=== PATIENT | male | born 1960 | race American Indian/Alaskan Native ===

== ENCOUNTER 2018-06-10 01:12 | Emergency (ER) | payer MEDICAID, OTHER ==
[2018-06-10 01:12] VITALS: BMI 24.3
[2018-06-10] MEDS ORDERED: Albuterol-Ipratrop 3 mg / 0.5 (3 ml) UD IH STA ×2 (01:48→03:24)
--- NOTE | 2018-06-10 01:50 | ED PDOC ---
Arrival/HPI - General Chief Complaint: Weakness/Neurological Deficit Historian: Patient - History of Present Illness Narrative History of Present Illness (Text): 06/10/18 01:51 58 year old male, whose past medical history includes asthma, presents to the emergency department complaining of generalized weakness. Patient states he has been feeling sick for the past few days. Patient informs having pain all over his body. Patient states he has leg swelling and lower abdominal pain. Patient denies any headache, dizziness, chest pain, shortness of breath, cough, or any other complaint. PMD: Dr Nafisa Mason Time/Duration: Prior to Arrival Symptom Onset: Gradual Symptom Course: Unchanged Quality: Aching Activities at Onset: Light Context: Home Past Medical History - Provider Review Nursing Documentation Reviewed: Yes - Infectious Disease Hx of Infectious Diseases: None - Cardiac Hx Atrial Fibrillation: Yes Hx Hypertension: Yes - Pulmonary Hx Asthma: Yes Hx Chronic Obstructive Pulmonary Disease (COPD): Yes (ASTHMA) Hx Emphysema: Yes Hx Pneumonia: Yes - Neurological Hx Seizures: No - HEENT Hx HEENT Disorder: No - Endocrine/Metabolic Hx Endocrine Disorders: Yes Hx Diabetes Mellitus Type 2: Yes - Hematological/Oncological Hx Blood Disorders: Yes Hx Hepatitis C: Yes - Integumentary Hx Dermatological Disorder: No - Musculoskeletal/Rheumatological Hx Fractures: Yes - Gastrointestinal Hx Gall Bladder Disease: Yes - Genitourinary/Gynecological Hx Sexually Transmitted Diseases: No - Psychiatric Hx Substance Use: No - Surgical History Hx Cholecystectomy: Yes (10/13/14) Hx Coronary Stent: Yes (2 stents) - Anesthesia Hx Anesthesia: Yes Hx Anesthesia Reactions: No Hx Malignant Hyperthermia: No - Suicidal Assessment Feels Threatened In Home Enviroment: No Family/Social History - Physician Review Nursing Documentation Reviewed: Yes Family/Social History: No Known Family HX Smoking Status: Former Smoker Hx Alcohol Use: No Hx Substance Use: No Substance used: heroin Hx Substance Use Treatment: No Allergies/Home Meds Allergies/Adverse Reactions: Allergies iodine Allergy (Severe, Verified 06/14/18 19:03) SHORTNESS OF BREATH Penicillins Allergy (Verified 06/14/18 19:03) RASH shellfish derived Allergy (Verified 06/14/18 19:03) ITCHING Iodinated Contrast- Oral and IV Dye [Iodinated Contrast Media - IV Dye] Adverse Reaction (Severe, Verified 06/14/18 19:03) RASH Home Medications: Home Meds Medication Instructions Recorded Confirmed RX: Albuterol HFA [Ventolin HFA 90 2 puff IH [id number] PRN 02/25/16 06/14/18 mcg/actuation (8 g)] RX: Apixaban [Eliquis] 5 mg PO BID 06/11/18 06/14/18 RX: Folic Acid 1 mg PO DAILY 06/11/18 06/14/18 RX: Insulin Glargine,Hum.rec.anlog 14 unit SQ BID 06/11/18 06/14/18 [Basaglar Kwikpen U-100] RX: Methadone 35 mg PO DAILY 06/11/18 06/14/18 RX: Multivitamin [Daily Multiple 1 each PO DAILY 06/11/18 06/14/18 Vitamin] RX: Omeprazole 40 mg PO DAILY 06/11/18 06/14/18 predniSONE [Prednisone] 10 mg PO DAILY 06/11/18 06/14/18 RX: Aspirin [Ecotrin] 81 mg PO DAILY 06/14/18 06/14/18 RX: Loratadine [Claritin] 10 mg PO DAILY 06/14/18 06/14/18 Review of Systems - Physician Review All systems were reviewed & negative as marked: Yes - Review of Systems Constitutional: Fatigue, Fevers Respiratory: absent: SOB, Cough Cardiovascular: absent: Chest Pain Gastrointestinal: Abdominal Pain Neurological: absent: Headache, Dizziness Physical Exam Vital Signs Reviewed: Yes Vital Signs Temp Pulse Resp BP Pulse Ox 06/10/18 01:31 102.5 F H 108 H 16 144/93 H 96 Temperature: Febrile Blood Pressure: Normal Pulse: Tachycardic Respiratory Rate: Normal Appearance: Positive for: Well-Appearing, Non-Toxic, Comfortable Pain Distress: None Mental Status: Positive for: Alert and Oriented X 3 - Systems Exam Head: Present: Atraumatic, Normocephalic Pupils: Present: PERRL Extroacular Muscles: Present: EOMI Conjunctiva: Present: Normal Mouth: Present: Dry. No: Moist Mucous Membranes, Normal Tounge (White lesions on tongue) Neck: Present: Normal Range of Motion, Other. No: Meningeal Signs (No nuchal rigidity) Respiratory/Chest: Present: Clear to Auscultation, Good Air Exchange, Wheezes (Faint wheeze in the anterior lung jensen). No: Respiratory Distress, Accessory Muscle Use Cardiovascular: Present: Regular Rate and Rhythm, Normal S1, S2, Tachycardic. No: Murmurs Abdomen: Present: Distention. No: Tenderness, Peritoneal Signs Back: Present: Normal Inspection Upper Extremity: Present: Normal Inspection. No: Cyanosis, Edema Lower Extremity: Present: Normal Inspection. No: Edema Neurological: Present: GCS=15, Speech Normal Skin: Present: Warm, Dry, Normal Color. No: Rashes Psychiatric: Present: Alert, Oriented x 3, Normal Insight, Normal Concentration Medical Decision Making ED Course and Treatment: 06/10/18 02:01 Impression: 58 year old male presents with generalized weakness and fever Plan: -- VBG -- Labs -- Chest X-ray -- Motrin -- Duonebs -- Solumedrol -- Blood and urine culture -- Rapid Flu -- Reassess and disposition Prior Visits: Notes and results from previous visits were reviewed. Progress Notes: 06/10/18 05:15 Labs show no evidence of infection with CXR revealing hyperinflation of lungs and no consolidation. Rapid flu negative. Patient refused Solumedrol and Motrin. Repeat temperature 99F. Patient updated on findings and is reluctant to leave. He states he is unable ambulate on his own, although he is able to stand unassisted. Attempt to arrange ambulance transport for patient who refuses. He states he is unable to travel without his oxygen and was told to leave his portable oxygen tank at home by EMS. Taxi cab services arranged for patient who agrees to transport once they arrive. - Lab Interpretations Lab Results: 06/10/18 02:20 06/10/18 02:20 Lab Results 06/10/18 04:26: Urine Color Yellow, Urine Appearance Clear, Urine pH 7.5, Ur Specific [place] 1.015, Urine Protein Negative, Urine Glucose (UA) Negative, Urine Ketones Negative, Urine Blood Negative, Urine Nitrate Negative, Urine Bilirubin Negative, Urine Urobilinogen 2.0 H, Ur Leukocyte Esterase Negative 06/10/18 02:20: Sodium 132, Chloride 94 L, Potassium 4.3, Carbon Dioxide 28, Anion Gap 14, BUN 9, Creatinine 0.7 L, Est GFR ( Amer) > 60, Est GFR (Non-Af Amer) > 60, Random Glucose 141 H, Calcium 8.5, Total Bilirubin 1.0, AST 105 H D, ALT 58 H, Alkaline Phosphatase 105, Troponin I < 0.01, Total Protein 7.3, Albumin 3.7, Globulin 3.5, Albumin/Globulin Ratio 1.1, Lipase 48 06/10/18 02:20: pO2 33, VBG pH 7.39, VBG pCO2 51.0, VBG HCO3 30.9 H, VBG Total CO2 32.5 H, VBG O2 Sat (Calc) 75.1 H, VBG Base Excess 4.7 H, VBG Potassium 4.4, Sodium 132.0, Chloride 96.0 L, Glucose 143 H, Lactate 2.3 H, FiO2 21.0, Crit Value Called To Cristiano xiong, Crit Value Called By Say, Blood Gas Notified Time 231, Venous Blood Potassium 4.4 06/10/18 02:20: PT 18.6 H, INR 1.68, APTT 40.1 H 06/10/18 02:20: WBC 6.5, RBC 4.61, Hgb 12.7 L, Hct 38.7 L, MCV 83.9, MCH 27.5, MCHC 32.8, RDW 14.1, Plt Count 188, MPV 9.1, Neut % (Auto) 61.0, Lymph % (Auto) 22.6, Petroleum % (Auto) 14.2 H, Eos % (Auto) 2.0, Baso % (Auto) 0.2, Lymph # (Auto) 1.5, Petroleum # (Auto) 0.9 H, Eos # (Auto) 0.1, Baso # (Auto) 0.01, Absolute Neuts (auto) 3.94 06/10/18 01:45: Influenza Typ A,B (EIA) Negative for flu a/b I have reviewed the lab results: Yes - Medication Orders Current Medication Orders: Discontinued Medications Ibuprofen (Motrin Tab) 600 mg PO STAT STA Stop: 06/10/18 01:38 06/16/18 07:39 Discontinued Medications Acetaminophen (Tylenol 325mg Tab) 650 mg PO STAT STA Stop: 06/10/18 03:19 Last Admin: 06/10/18 03:24 Dose: 650 mg Albuterol/Ipratropium (Duoneb 3 Mg/0.5 Mg (3 Ml) Ud) 3 ml IH STAT STA Stop: 06/10/18 01:49 Last Admin: 06/10/18 02:38 Dose: 3 ml Albuterol/Ipratropium (Duoneb 3 Mg/0.5 Mg (3 Ml) Ud) 3 ml IH STAT STA Stop: 06/10/18 03:25 Last Admin: 06/10/18 03:36 Dose: 3 ml Sodium Chloride (Sodium Chloride 0.9%) 1,000 mls @ 999 mls/hr IV .Q1H1M STA Stop: 06/10/18 05:33 Last Admin: 06/10/18 04:39 Dose: 999 mls/hr eMAR Start Stop Document 06/10/18 04:39 CNR (Rec: 06/10/18 04:39 CNR [id number]) Intravenous Solution Start Date 06/10/18 Start Time 04:39 End Date 06/10/18 End time 05:39 Total Infusion Time 60 Ibuprofen (Motrin Tab) 600 mg PO STAT STA Stop: 06/10/18 01:38 Last Admin: 06/10/18 02:39 Dose: Not Given Non-Admin Reason: Patient Refused Methylprednisolone (Solu-Medrol) 125 mg IVP STAT STA Stop: 06/10/18 01:49 Last Admin: 06/10/18 02:39 Dose: Not Given Non-Admin Reason: Patient Refused - Scribe Statement The provider has reviewed the documentation as recorded by the Miky Wan Provider Scribe Attestation: All medical record entries made by the Scribe were at my direction and pers onally dictated by me. I have reviewed the chart and agree that the record accurately reflects my personal performance of the history, physical exam, medical decision making, and the department course for this patient. I have also personally directed, reviewed, and agree with the discharge instructions and disposition. Disposition/Present on Arrival - Present on Arrival Any Indicators Present on Arrival: No History of DVT/PE: No History of Uncontrolled Diabetes: No Urinary Catheter: No History of Decub. Ulcer: No History Surgical Site Infection Following: None - Disposition Have Diagnosis and Disposition been Completed?: Yes Diagnosis: Bronchitis Disposition: HOME/ ROUTINE Disposition Time: 05:17 Patient Plan: Discharge Patient Problems: Current Active Problems Problem Status Onset Chest pain Acute Condition: IMPROVED Discharge Instructions (ExitCare): Acute Bronchitis, Adult (DC) Print Language: BULGARIAN Additional Instructions: All medical record entries made by the Scribe were at my direction and personally dictated by me. I have reviewed the chart and agree that the record accurately reflects my personal performance of the history, physical exam, medical decision making, and the department course for this patient. I have also personally directed, reviewed, and agree with the discharge instructions and di sposition. Referrals: Nafisa Mason MD [Primary Care Provider] - Follow up with primary Forms: [employer] (Monegasque)
[2018-06-10 02:32] LABS: VENOUS BLOOD GAS BASE EXCESS 4.7 mmol/L (0.0-2.0); VENOUS BLOOD GAS PO2 33 mm/Hg (30-55); VENOUS BLOOD PH 7.39 (7.32-7.43)
[2018-06-10 02:38] LABS: BASO # 0.01 K/mm3 (0.0-2.0); BASO % 0.2 % (0.0-3.0); EOS # 0.1 (0.0-0.7); HEMOGLOBIN 12.7 g/dL (14.0-18.0); LYMPH # 1.5 (1.2-3.4); LYMPH % 22.6 % (22.0-35.0); MEAN CELL VOLUME 83.9 fl (80.0-105.0); MEAN CORPUSCULAR HEMOGLOBIN 27.5 pg (25.0-35.0); MEAN CORPUSCULAR HGB CONC 32.8 g/dl (31.0-37.0); MEAN PLATELET VOLUME 9.1 fl (7.0-11.0); MONO # 0.9 (0.1-0.6); MONO % 14.2 % (1.0-6.0); RBC 4.61 10^6/uL (3.5-6.1); RED CELL DISTRIBUTION WIDTH 14.1 % (11.5-14.5); WHITE BLOOD COUNT 6.5 10^3/uL (4.5-11.0)
[2018-06-10 02:41] LABS: INR 1.68; PARTIAL THROMBOPLASTIN TIME 40.1 Seconds (26.9-38.3); PROTHROMBIN TIME 18.6 SECONDS (9.4-12.5)
[2018-06-10 02:43] LABS: ALB/GLOB RATIO 1.1 (1.1-1.8); ALBUMIN 3.7 g/dL (3.0-4.8); ALT/SGPT 58 U/L (7-56); AST/SGOT 105 U/L (17-59); BLOOD UREA NITROGEN 9 mg/dL (7-21); CALCIUM 8.5 mg/dL (8.4-10.5); GFR NON-AFRICAN AMERICAN > 60; LIPASE 48 U/L (23-300)
[2018-06-10 02:54] LABS: TROPONIN I < 0.01 ng/mL
[2018-06-10] MEDS ORDERED: Sodium Chloride 0.9% 1,000 ML IV STA (04:33)
[2018-06-10 04:44] LABS: PH,URINE 7.5 (4.7-8.0); URINE BILIRUBIN NEGATIVE (NEGATIVE); URINE BLOOD NEGATIVE (NEGATIVE); URINE GLUCOSE (UA) NEGATIVE (NEGATIVE); URINE LEUKOCYTE ESTERASE NEGATIVE Leu/uL (NEGATIVE); URINE PROTEIN NEGATIVE mg/dL (<30 mg/dL)
[2018-06-10 04:49] LABS: URINE APPEARANCE CLEAR (CLEAR); URINE COLOR YELLOW (YELLOW)
--- NOTE | 2018-06-10 08:34 | RAD ---
Date of service: 06/10/2018 HISTORY: sob COMPARISON: 09/06/2013 FINDINGS: LUNGS: No active pulmonary disease. PLEURA: No significant pleural effusion identified, no pneumothorax apparent. CARDIOVASCULAR: No aortic atherosclerotic calcification present. Normal cardiac size. No pulmonary vascular congestion. OSSEOUS STRUCTURES: Sternal wires VISUALIZED UPPER ABDOMEN: Normal. OTHER FINDINGS: None. IMPRESSION: No active disease.
--- NOTE | 2018-06-10 10:13 | CARD ---
APPROVED REPORT Date of service: 06/10/2018 EKG Measurement Heart [id number] <Conclusion> Sinus tachycardia with premature atrial complexes Moderate voltage criteria for LVH, may be normal variant Possible Inferior infarct, age undetermined ST & T wave abnormality, consider lateral ischemia Abnormal ECG
[2018-06-10 12:54] VITALS: BP 135/78; PULSE 86; RESP 18; TEMP 98.6; O2SAT 98
== END 2018-06-10 12:51 | disposition home or self-care (01) ==
LOC: ED 01:12
DX: J40 Bronchitis, not specified as acute or chronic (principal); E11.9 Type 2 diabetes mellitus without complications; I10 Essential (primary) hypertension; I48.91 Unspecified atrial fibrillation; Z87.891 Personal history of nicotine dependence
CPT/HCPCS: 71045; 80053; 81003; 82803; 83690; 84484; 85025; 85610; 85730; 87040; 87086; 87804; 93005; 94640; 96360; 99285; J7030

== ENCOUNTER 2018-06-11 00:21 | Inpatient (IN) | payer OTHER ==
[2018-06-11 00:31] VITALS: BMI 25.1
--- NOTE | 2018-06-11 00:42 | ED PDOC ---
Arrival/HPI - General Chief Complaint: Shortness Of Breath Time Seen by Provider: 06/11/18 00:23 Historian: Patient, EMS - History of Present Illness Narrative History of Present Illness (Text): 06/11/18 00:42 Karolina Cortes is a 58 year old male, whose past medical history includes emphysema, COPD, hypertension, CAD with coronary stents, and cholecystectomy, who presents to the Emergency department brought in by EMS for shortness of breath. Patient states he has been experiencing shortness of breath intermittently over the past week, worsening tonight, with associated lower extremity swelling. Patient also complaining of a sore to his left tongue. Patient denies any nausea, vomiting, diarrhea, urinary symptoms, back pain, neck pain, headache, dizziness, or any other complaints. Symptom Onset: Gradual Symptom Course: Unchanged Activities at Onset: Light Context: Home Past Medical History - Provider Review Nursing Documentation Reviewed: Yes - Infectious Disease Hx of Infectious Diseases: None - Cardiac Hx Cardiac Disorders: Yes Hx Atrial Fibrillation: Yes Hx Congestive Heart Failure: Yes Hx Hypertension: Yes - Pulmonary Hx Respiratory Disorders: Yes Hx Asthma: Yes Hx Chronic Obstructive Pulmonary Disease (COPD): Yes Hx Emphysema: Yes Hx Pneumonia: Yes - Neurological Hx Seizures: No - HEENT Hx HEENT Disorder: No - Endocrine/Metabolic Hx Endocrine Disorders: Yes Hx Diabetes Mellitus Type 2: Yes - Hematological/Oncological Hx Blood Disorders: Yes Hx Hepatitis C: Yes - Integumentary Hx Dermatological Disorder: No - Musculoskeletal/Rheumatological Hx Musculoskeletal Disorders: Yes Hx Fractures: Yes - Gastrointestinal Hx Gastrointestinal Disorders: Yes Hx Gall Bladder Disease: Yes - Genitourinary/Gynecological Hx Sexually Transmitted Diseases: No - Psychiatric Hx Substance Use: No - Surgical History Hx Cholecystectomy: Yes (10/13/14) Hx Coronary Stent: Yes (2 stents) Hx Open Heart Surgery: Yes (2017) - Anesthesia Hx Anesthesia: Yes Hx Anesthesia Reactions: No Hx Malignant Hyperthermia: No - Suicidal Assessment Feels Threatened In Home Enviroment: No Family/Social History - Physician Review Nursing Documentation Reviewed: Yes Family/Social History: Unknown Family HX Smoking Status: Former Smoker Hx Alcohol Use: No Hx Substance Use: No Substance used: heroin Hx Substance Use Treatment: No Allergies/Home Meds Allergies/Adverse Reactions: Allergies iodine Allergy (Severe, Verified 06/14/18 19:03) SHORTNESS OF BREATH Penicillins Allergy (Verified 06/14/18 19:03) RASH shellfish derived Allergy (Verified 06/14/18 19:03) ITCHING Iodinated Contrast- Oral and IV Dye [Iodinated Contrast Media - IV Dye] Adverse Reaction (Severe, Verified 06/14/18 19:03) RASH Home Medications: Home Meds Medication Instructions Recorded Confirmed RX: Albuterol HFA [Ventolin HFA 90 2 puff IH [id number] PRN 02/25/16 06/14/18 mcg/actuation (8 g)] RX: Apixaban [Eliquis] 5 mg PO BID 06/11/18 06/14/18 RX: Folic Acid 1 mg PO DAILY 06/11/18 06/14/18 RX: Insulin Glargine,Hum.rec.anlog 14 unit SQ BID 06/11/18 06/14/18 [Basaglar Kwikpen U-100] RX: Methadone 35 mg PO DAILY 06/11/18 06/14/18 RX: Multivitamin [Daily Multiple 1 each PO DAILY 06/11/18 06/14/18 Vitamin] RX: Omeprazole 40 mg PO DAILY 06/11/18 06/14/18 predniSONE [Prednisone] 10 mg PO DAILY 06/11/18 06/14/18 RX: Aspirin [Ecotrin] 81 mg PO DAILY 06/14/18 06/14/18 RX: Loratadine [Claritin] 10 mg PO DAILY 06/14/18 06/14/18 Review of Systems - Physician Review All systems were reviewed & negative as marked: Yes - Review of Systems Constitutional: Fevers Eyes: Normal ENT: Normal Respiratory: SOB Genitourinary Male: Normal. absent: Dysuria, Frequency, Hematuria, Urinary Output Changes Musculoskeletal: Other (+lower extremity swelling). absent: Back Pain, Neck Pain Skin: Normal. absent: Rash Neurological: Normal. absent: Headache, Dizziness Endocrine: Normal Hemo/Lymphatic: Normal Psychiatric: Normal Physical Exam Vital Signs Reviewed: Yes Vital Signs Temp Pulse Resp BP Pulse Ox 06/11/18 00:36 102.0 F H 113 H 12 153/103 H 93 L Temperature: Febrile Blood Pressure: Hypertensive Pulse: Tachycardic Respiratory Rate: Normal Appearance: Positive for: Well-Appearing, Non-Toxic, Comfortable Pain Distress: None Mental Status: Positive for: Alert and Oriented X 3 - Systems Exam Head: Present: Atraumatic, Normocephalic Pupils: Present: PERRL Extroacular Muscles: Present: EOMI Conjunctiva: Present: Normal Mouth: Present: Moist Mucous Membranes, Other (Aphthous ulcer to left tongue) Neck: Present: Normal Range of Motion Respiratory/Chest: Present: Decreased Breath Sounds (Decreased breath sounds bilaterally). No: Respiratory Distress, Accessory Muscle Use Cardiovascular: Present: Regular Rate and Rhythm, Normal S1, S2. No: Murmurs Abdomen: No: Tenderness, Distention, Peritoneal Signs Back: Present: Normal Inspection Upper Extremity: Present: Normal Inspection. No: Cyanosis, Edema Lower Extremity: Present: Normal Inspection. No: Edema Neurological: Present: GCS=15, CN II-XII Intact, Speech Normal Skin: Present: Warm, Dry, Normal Color. No: Rashes Psychiatric: Present: Alert, Oriented x 3, Normal Insight, Normal Concentration Medical Decision Making ED Course and Treatment: 06/11/18 00:42 Impression: 58 year old male complaining of shortness of breath. Plan: -- EKG -- Chest X-ray -- Labs, cardiac enzymes, BNP, blood cultures -- Rapid influenza -- Duoneb -- Solu-medrol -- Reassess and disposition Prior Visits: Notes and results from previous visits were reviewed. Progress Notes: Reviewed EKG, sinus tachycardia at 115 bpm. LVH. Inferior infarct. Non-specific ST/T wave changes. 06/11/18 01:53 Case discussed with medical office technician traffic operations manager, who is aware and agrees with plan. 06/11/18 01:[address] Marvin Cohen, who is aware and agrees with plan. Accepts pt in to hospitalist service. Pt will go to remote telemetry for COPD. - RAD Interpretation Radiology Orders: 06/11/18 00:42 CHEST PORTABLE [RAD] Stat - Scribe Statement The provider has reviewed the documentation as recorded by the Miky Cota Provider Scribe Attestation: All medical record entries made by the Scribe were at my direction and personally dictated by me. I have reviewed the chart and agree that the record accurately reflects my personal performance of the history, physical exam, medical decision making, and the department course for this patient. I have also personally directed, reviewed, and agree with the discharge instructions and disposition. Disposition/Present on Arrival - Present on Arrival Any Indicators Present on Arrival: No History of DVT/PE: No History of Uncontrolled Diabetes: No Urinary Catheter: No History of Decub. Ulcer: No History Surgical Site Infection Following: None - Disposition Have Diagnosis and Disposition been Completed?: Yes Diagnosis: COPD (chronic obstructive pulmonary disease) Disposition: HOSPITALIZED Disposition Time: 01:50 Patient Problems: Current Active Problems Problem Status Onset COPD (chronic obstructive pulmonary disease) Acute Chest pain Acute Condition: FAIR
[2018-06-11 01:05] LABS: BASO # 0.01 K/mm3 (0.0-2.0); BASO % 0.2 % (0.0-3.0); EOS # 0.2 (0.0-0.7); EOS % 4.4 % (1.5-5.0); HEMOGLOBIN 13.2 g/dL (14.0-18.0); LYMPH # 0.9 (1.2-3.4); LYMPH % 21.4 % (22.0-35.0); MEAN CELL VOLUME 83.7 fl (80.0-105.0); MEAN CORPUSCULAR HEMOGLOBIN 27.6 pg (25.0-35.0); MEAN PLATELET VOLUME 9.3 fl (7.0-11.0); MONO % 22.8 % (1.0-6.0); PLATELET COUNT 193 10^3/uL (120.0-450.0); RBC 4.78 10^6/uL (3.5-6.1); WHITE BLOOD COUNT 4.3 10^3/uL (4.5-11.0)
[2018-06-11 01:06] LABS: ALBUMIN 3.8 g/dL (3.0-4.8); ALT/SGPT 53 U/L (7-56); AST/SGOT 102 U/L (17-59); BLOOD UREA NITROGEN 10 mg/dL (7-21); CALCIUM 8.7 mg/dL (8.4-10.5); GFR NON-AFRICAN AMERICAN > 60
[2018-06-11 01:08] LABS: INR 1.44; PARTIAL THROMBOPLASTIN TIME 39.7 Seconds (26.9-38.3)
[2018-06-11 01:18] LABS: B-TYPE NATRIURETIC PEPTIDE 207 pg/mL (0-450); TROPONIN I < 0.01 ng/mL
[2018-06-11 01:43] LABS: BAND 1 % (0-2); EOSINOPHIL 4 % (0.0-3.0); LYMPHOCYTE 20 % (22.0-35.0); MONOCYTE 21 % (1.0-6.0); NEUTROPHIL 54 % (50.0-70.0); PLATELET ESTIMATE NORMAL (NORMAL)
[2018-06-11] MEDS: Albuterol-Ipratrop 3 mg / 0.5 (3 ml) UD IH SCH ×6 (01:45→21:00)
[2018-06-11] MEDS ORDERED: levoFLOXacin 750 mg in D5W 750 MG/150 ML BAG IVPB STA (02:14)
[2018-06-11] MEDS ORDERED: Albuterol-Ipratrop 3 mg / 0.5 (3 ml) UD IH PRN (03:03)
[2018-06-11] MEDS ORDERED: Dextrose 50% SYRINGE Inj (50 ml) IV PRN (03:04)
--- NOTE | 2018-06-11 03:28 | CP.PCM.HP ---
<Eric Cardenas - Last Filed: 06/11/18 08:07> History of Present Illness - History of Present Illness History of Present Illness: Resident History & Physical for Hospitalist Service Patient is a 58 year old male with past medical history of asthma, COPD, HTN, CAD s/p CABG, hepatitis C presenting with chief complaint of shortness of breath and cough which began 3 days ago. Cough is productive with brownish sputum. Patient states he used his Ventolin with no relief. Patient had CABG done recently at [facility] 4 weeks prior. Patient also admits to bilateral leg pain and swelling around his ankles. He recently followed up with PMD Dr. Mason and states there were no issues at that time. Denies fevers, chills, nausea, vomiting, chest pain, abdominal pain, diarrhea, dysuria. PMH: asthma, COPD, HTN, CAD, hepatitis C PSH: CABG, cholecystectomy SHx: previous alcohol/tobacco (1 PPD x 20 years)/heroin use FHx: mother (HTN) Allergies: iodine, penicillins, contrast Pharmacy: [facility] Present on Admission - Present on Admission Any Indicators Present on Admission: No Review of Systems - Review of Systems All systems: reviewed and no additional remarkable complaints except (as stated in HPI) Past Patient History - Infectious Disease Hx of Infectious Diseases: None - Past Medical History & Family History Past Medical History?: Yes - Past Social History Smoking Status: Former Smoker - CARDIAC Hx Cardiac Disorders: Yes Hx Atrial Fibrillation: Yes Hx Congestive Heart Failure: Yes Hx Hypertension: Yes - PULMONARY Hx Respiratory Disorders: Yes Hx Asthma: Yes Hx Chronic Obstructive Pulmonary Disease (COPD): Yes Hx Emphysema: Yes Hx Pneumonia: Yes - NEUROLOGICAL Hx Seizures: No - HEENT Hx HEENT Problems: No - ENDOCRINE/METABOLIC Hx Endocrine Disorders: Yes Hx Diabetes Mellitus Type 2: Yes - HEMATOLOGICAL/ONCOLOGICAL Hx Blood Disorders: Yes Hx Hepatitis C: Yes - INTEGUMENTARY Hx Dermatological Problems: No - MUSCULOSKELETAL/RHEUMATOLOGICAL Hx Musculoskeletal Disorders: Yes Hx Fractures: Yes - GASTROINTESTINAL Hx Gastrointestinal Disorders: Yes Hx Gall Bladder Disease: Yes - GENITOURINARY/GYNECOLOGICAL Hx Sexually Transmitted Disorders: No - PSYCHIATRIC Hx Substance Use: No - SURGICAL HISTORY Hx Cholecystectomy: Yes (10/13/14) Hx Coronary Stent: Yes (2 stents) Hx Open Heart Surgery: Yes (2017) - ANESTHESIA Hx Anesthesia: Yes Hx Anesthesia Reactions: No Hx Malignant Hyperthermia: No Meds Allergies/Adverse Reactions: Allergies Allergy/AdvReac Type Severity Reaction Status Date / Time iodine Allergy Severe SHORTNESS Verified 06/11/18 00:31 OF BREATH Penicillins Allergy RASH Verified 06/11/18 00:31 shellfish derived Allergy ITCHING Verified 06/11/18 00:31 Iodinated Contrast- Oral and AdvReac Severe RASH Verified 06/11/18 00:31 IV Dye [Iodinated Contrast Media - IV Dye] Physical Exam - Constitutional Appears: Agitated - Head Exam Head Exam: ATRAUMATIC, NORMOCEPHALIC - Eye Exam Eye Exam: EOMI, Normal appearance, PERRL - ENT Exam ENT Exam: Mucous Membranes Moist Additional comments: tongue ulcer - Respiratory Exam Respiratory Exam: Clear to Auscultation Bilateral. absent: Accessory Muscle Use, Decreased Breath Sounds, Rales, Rhonchi, Wheezes - Cardiovascular Exam Cardiovascular Exam: Tachycardia, RRR, +S1, +S2. absent: Systolic Murmur - GI/Abdominal Exam GI & Abdominal Exam: Soft. absent: Distended, Firm, Guarding, Rebound, Rigid, Tenderness - Extremities Exam Extremities exam: Positive for: pedal pulses present (diminished ) Additional comments: bilateral lower extremities with venous stasis changes bilateral ankles tender to palpation - Back Exam Back exam: NORMAL INSPECTION - Neurological Exam Neurological exam: Alert, CN II-XII Intact, Oriented x3 - Skin Skin Exam: Abrasion (RUE), Dry, Intact Results - Vital Signs Recent Vital Signs: Last Vital Signs Temp 102.0 F H 06/11/18 00:36 Pulse 113 H 06/11/18 00:36 Resp 24 06/11/18 00:51 BP 153/103 H 06/11/18 00:36 Pulse Ox 93 L 06/11/18 00:36 - Labs Result Diagrams: 06/11/18 07:00 06/11/18 00:41 Labs: Laboratory Results - last 24 hr 06/11/18 06/11/18 06/11/18 00:41 00:41 00:41 WBC 4.3 L D RBC 4.78 Hgb 13.2 L Hct 40.0 L MCV 83.7 MCH 27.6 MCHC 33.0 RDW 14.0 Plt Count 193 MPV 9.3 Neut % (Auto) 51.2 Lymph % (Auto) 21.4 L Garfield % (Auto) 22.8 H Eos % (Auto) 4.4 Baso % (Auto) 0.2 Lymph # (Auto) 0.9 L Garfield # (Auto) 1.0 H Eos # (Auto) 0.2 Baso # (Auto) 0.01 Absolute Neuts (auto) 2.19 Neutrophils % (Manual) 54 Band Neutrophils % 1 Lymphocytes % (Manual) 20 L Monocytes % (Manual) 21 H Eosinophils % (Manual) 4 H Platelet Evaluation Normal PT 16.0 H INR 1.44 APTT 39.7 H Sodium 134 Potassium 4.5 Chloride 99 Carbon Dioxide 28 Anion Gap 12 BUN 10 Creatinine 0.7 L Est GFR ( Amer) > 60 Est GFR (Non-Af Amer) > 60 Random Glucose 177 H Calcium 8.7 Magnesium 1.7 Total Bilirubin 1.0 AST 102 H ALT 53 Alkaline Phosphatase 102 Lactate Dehydrogenase 579 Total Creatine Kinase 155 Troponin I < 0.01 NT-Pro-B Natriuret Pep 207 Total Protein 7.4 Albumin 3.8 Globulin 3.6 Albumin/Globulin Ratio 1.0 L Influenza Typ A,B (EIA) 06/11/18 02:02 WBC RBC Hgb Hct MCV MCH MCHC RDW Plt Count MPV Neut % (Auto) Lymph % (Auto) Garfield % (Auto) Eos % (Auto) Baso % (Auto) Lymph # (Auto) Garfield # (Auto) Eos # (Auto) Baso # (Auto) Absolute Neuts (auto) Neutrophils % (Manual) Band Neutrophils % Lymphocytes % (Manual) Monocytes % (Manual) Eosinophils % (Manual) Platelet Evaluation PT INR APTT Sodium Potassium Chloride Carbon Dioxide Anion Gap BUN Creatinine Est GFR ( Amer) Est GFR (Non-Af Amer) Random Glucose Calcium Magnesium Total Bilirubin AST ALT Alkaline Phosphatase Lactate Dehydrogenase Total Creatine Kinase Troponin I NT-Pro-B Natriuret Pep Total Protein Albumin Globulin Albumin/Globulin Ratio Influenza Typ A,B (EIA) Negative for flu a/b Assessment & Plan - Assessment and Plan (Free Text) Assessment: Patient is a 58 year old male with past medical history of COPD, HTN, CAD s/p CABG, hepatitis C presenting with chief complaint of shortness of breath and cough. Plan: Shortness of breath - acute exacerbation of asthma vs. pneumonia - febrile, no leukocytosis - CXR unremarkable - flu negative - Duonebs Q6H - Solu-medrol 40 mg IVP Q8 - Levaquin 750 mg IV daily - followup cultures Transaminitis - history of hepatitis C - Abd U/S from 03/2017 showed hepatic lobe lesion (patient denies followup) - followup hepatitis panel CAD - continue home Plavix 75 mg PO daily HTN - Lopressor 25 mg PO BID T2DM - Hgba1c - ISS, Accuchecks - contact pharmacy for home meds History of polysubstance abuse - UDS, alcohol, HIV PPX - Heparin 5000 units SC Q8 - Protonix 40 mg PO daily Case discussed with Dr. Marisol Cardenas PGY-1 - Date & Time Date: 06/11/18 Time: 03:34 <Cee Damon - Last Filed: 06/11/18 09:35> Results - Vital Signs Recent Vital Signs: Last Vital Signs Temp 98.2 F 06/11/18 08:04 Pulse 90 06/11/18 08:04 Resp 20 06/11/18 08:04 BP 123/69 06/11/18 08:04 Pulse Ox 97 06/11/18 08:04 - Labs Result Diagrams: 06/11/18 07:00 06/11/18 07:00 Labs: Laboratory Results - last 24 hr 06/11/18 06/11/18 06/11/18 00:41 00:41 00:41 WBC 4.3 L D RBC 4.78 Hgb 13.2 L Hct 40.0 L MCV 83.7 MCH 27.6 MCHC 33.0 RDW 14.0 Plt Count 193 MPV 9.3 Neut % (Auto) 51.2 Lymph % (Auto) 21.4 L Garfield % (Auto) 22.8 H Eos % (Auto) 4.4 Baso % (Auto) 0.2 Lymph # (Auto) 0.9 L Garfield # (Auto) 1.0 H Eos # (Auto) 0.2 Baso # (Auto) 0.01 Absolute Neuts (auto) 2.19 Neutrophils % (Manual) 54 Band Neutrophils % 1 Lymphocytes % (Manual) 20 L Monocytes % (Manual) 21 H Eosinophils % (Manual) 4 H Platelet Evaluation Normal PT 16.0 H INR 1.44 APTT 39.7 H Sodium 134 Potassium 4.5 Chloride 99 Carbon Dioxide 28 Anion Gap 12 BUN 10 Creatinine 0.7 L Est GFR ( Amer) > 60 Est GFR (Non-Af Amer) > 60 Random Glucose 177 H Calcium 8.7 Phosphorus Magnesium 1.7 Total Bilirubin 1.0 AST 102 H ALT 53 Alkaline Phosphatase 102 Lactate Dehydrogenase 579 Total Creatine Kinase 155 Troponin I < 0.01 NT-Pro-B Natriuret Pep 207 Total Protein 7.4 Albumin 3.8 Globulin 3.6 Albumin/Globulin Ratio 1.0 L TSH 3rd Generation Urine Opiates Screen Urine Methadone Screen Ur Barbiturates Screen Ur Phencyclidine Scrn Ur Amphetamines Screen U Benzodiazepines Scrn U Oth Cocaine Metabols U Cannabinoids Screen Alcohol, Quantitative Influenza Typ A,B (EIA) 06/11/18 06/11/18 06/11/18 00:41 02:02 06:40 WBC RBC Hgb Hct MCV MCH MCHC RDW Plt Count MPV Neut % (Auto) Lymph % (Auto) Garfield % (Auto) Eos % (Auto) Baso % (Auto) Lymph # (Auto) Garfield # (Auto) Eos # (Auto) Baso # (Auto) Absolute Neuts (auto) Neutrophils % (Manual) Band Neutrophils % Lymphocytes % (Manual) Monocytes % (Manual) Eosinophils % (Manual) Platelet Evaluation PT INR APTT Sodium Potassium Chloride Carbon Dioxide Anion Gap BUN Creatinine Est GFR ( Amer) Est GFR (Non-Af Amer) Random Glucose Calcium Phosphorus Magnesium Total Bilirubin AST ALT Alkaline Phosphatase Lactate Dehydrogenase Total Creatine Kinase Troponin I NT-Pro-B Natriuret Pep Total Protein Albumin Globulin Albumin/Globulin Ratio TSH 3rd Generation 2.65 Urine Opiates Screen Negative Urine Methadone Screen Positive H Ur Barbiturates Screen Negative Ur Phencyclidine Scrn Negative Ur Amphetamines Screen Negative U Benzodiazepines Scrn Negative U Oth Cocaine Metabols Negative U Cannabinoids Screen Negative Alcohol, Quantitative < 10 Influenza Typ A,B (EIA) Negative for flu a/b 06/11/18 06/11/18 07:00 07:00 WBC 4.0 L RBC 4.25 Hgb 11.4 L Hct 35.3 L MCV 83.1 MCH 26.8 MCHC 32.3 RDW 14.1 Plt Count 165 MPV 9.1 Neut % (Auto) 46.0 L Lymph % (Auto) 38.0 H Garfield % (Auto) 11.9 H Eos % (Auto) 3.8 Baso % (Auto) 0.3 Lymph # (Auto) 1.5 Garfield # (Auto) 0.5 Eos # (Auto) 0.2 Baso # (Auto) 0.01 Absolute Neuts (auto) 1.82 Neutrophils % (Manual) Band Neutrophils % Lymphocytes % (Manual) Monocytes % (Manual) Eosinophils % (Manual) Platelet Evaluation PT INR APTT Sodium 135 Potassium 4.2 Chloride 102 Carbon Dioxide 27 Anion Gap 10 BUN 7 Creatinine 0.7 L Est GFR ( Amer) > 60 Est GFR (Non-Af Amer) > 60 Random Glucose 74 Calcium 8.4 Phosphorus 4.1 Magnesium 1.5 L Total Bilirubin 1.1 AST 78 H D ALT 42 Alkaline Phosphatase 91 Lactate Dehydrogenase Total Creatine Kinase Troponin I < 0.01 NT-Pro-B Natriuret Pep Total Protein 6.4 Albumin 3.2 Globulin 3.2 Albumin/Globulin Ratio 1.0 L TSH 3rd Generation Urine Opiates Screen Urine Methadone Screen Ur Barbiturates Screen Ur Phencyclidine Scrn Ur Amphetamines Screen U Benzodiazepines Scrn U Oth Cocaine Metabols U Cannabinoids Screen Alcohol, Quantitative Influenza Typ A,B (EIA) Attending/Attestation - Attestation I have personally seen and examined this patient.: Yes I have fully participated in the care of the patient.: Yes I have reviewed all pertinent clinical information: Yes Notes (Text): 06/11/18 09:23 Note:Ulcer noted on the L side of the tongue appears to be an aphthous ulcer. Pt seen with the resident by the bedside. Case discussed in detail. Agree with documentation,assessment and plan of treatment.
[2018-06-11] MEDS: Pantoprazole 40 mg EC Tab PO SCH (06:24)
[2018-06-11] MEDS: MethylPREDNISolone 40 mg Vial IVP SCH ×4 (06:24→21:51)
[2018-06-11 07:44] LABS: OPIATES, UR NEGATIVE (NEGATIVE); PHENCYCLIDINE, UR NEGATIVE (NEGATIVE)
[2018-06-11 07:47] LABS: BARBITURATES, UR NEGATIVE (NEGATIVE); BENZODIAZEPINES, UR NEGATIVE (NEGATIVE)
[2018-06-11 07:47] LABS: BASO # 0.01 K/mm3 (0.0-2.0); BASO % 0.3 % (0.0-3.0); EOS # 0.2 (0.0-0.7); EOS % 3.8 % (1.5-5.0); HEMOGLOBIN 11.4 g/dL (14.0-18.0); LYMPH # 1.5 (1.2-3.4); MEAN CELL VOLUME 83.1 fl (80.0-105.0); MEAN CORPUSCULAR HEMOGLOBIN 26.8 pg (25.0-35.0); MEAN CORPUSCULAR HGB CONC 32.3 g/dl (31.0-37.0); MEAN PLATELET VOLUME 9.1 fl (7.0-11.0); MONO # 0.5 (0.1-0.6); MONO % 11.9 % (1.0-6.0); RBC 4.25 10^6/uL (3.5-6.1); RED CELL DISTRIBUTION WIDTH 14.1 % (11.5-14.5)
[2018-06-11] MEDS: Insulin Lispro (humaLOG) LOW Coverage SC SCH ×4 (08:05→22:00)
[2018-06-11 08:11] LABS: TROPONIN I < 0.01 ng/mL
[2018-06-11 08:20] LABS: ALBUMIN 3.2 g/dL (3.0-4.8); ALT/SGPT 42 U/L (7-56); AST/SGOT 78 U/L (17-59); BLOOD UREA NITROGEN 7 mg/dL (7-21); CALCIUM 8.4 mg/dL (8.4-10.5); GFR NON-AFRICAN AMERICAN > 60
--- NOTE | 2018-06-11 09:48 | RAD ---
Date of service: 06/11/2018 HISTORY: sob COMPARISON: 06/10/2018 FINDINGS: LUNGS: No active pulmonary disease. PLEURA: No significant pleural effusion identified, no pneumothorax apparent. CARDIOVASCULAR: Aortic calcification Normal cardiac size. No pulmonary vascular congestion. OSSEOUS STRUCTURES: Sternal wires VISUALIZED UPPER ABDOMEN: Normal. OTHER FINDINGS: None. IMPRESSION: No active disease.
--- NOTE | 2018-06-11 10:08 | CARD ---
APPROVED REPORT Date of service: 06/11/2018 EKG Measurement Heart [id number] <Conclusion> Sinus tachycardia with premature supraventricular complexes Possible Left atrial enlargement Left ventricular hypertrophy with repolarization abnormality Inferior infarct, age undetermined Abnormal ECG
[2018-06-11 13:08] LABS: HEPATITIS B SURFACE AG Negative (NEGATIVE)
[2018-06-11 13:14] LABS: HEPATITIS A IGM NEGATIVE (NEGATIVE); HEPATITIS B CORE AB NEGATIVE (NEGATIVE)
[2018-06-11 14:47] LABS: HEPATITIS C ANTIBODY REACTIVE (NEGATIVE)
[2018-06-11] MEDS ORDERED: levoFLOXacin 750 mg in D5W 150 ML BAG IVPB SCH (15:00)
[2018-06-11] MEDS ORDERED: Pneumococcal 23-Valent Vaccine IM ONE (16:58)
[2018-06-11] MEDS ORDERED: Influenza Vaccine 60 mcg/0.5 mL SYR (4YR UP) IM ONE (16:58)
[2018-06-11] MEDS ORDERED: Vancomycin 1gm in NS 250ml 1 GM/250 ML BAG IVPB SCH (17:15)
[2018-06-11] MEDS: Magnesium Chloride 64 mg ER Tab PO SCH (17:33)
--- NOTE | 2018-06-11 17:43 | CP.PCM.CON ---
History of Present Illness - History of Present Illness History of Present Illness: Infectious Disease Consultation: June 11, 2018 58 year old male with PMHx of asthma, COPD, HTN, CAD s/p CABG, hepatitis C presenting with chief complaint of shortness of breath and cough which began 3 days ago. Cough is productive with brownish sputum. Patient states he used Ventolin with no relief. Patient had CABG of 2 vessels performed December 2017. Patient also admits to bilateral leg pain and swelling around his ankles. He recently followed up with his PMD Dr. Mason and states there were no issues at that time. Denies fevers, chills, nausea, vomiting, chest pain, abdominal pain, diarrhea, dysuria. Patient with PCN allergy. The patient has frequent visits to both [facility] and [facility]. I last saw patient at [facility] in March 2018. PMHx: Asthma, COPD, HTN ,CAD, Hepatitis C, Ischemic Cardiomyopathy of 30-35%, A-fib PSHx: CABG Allergies: Iodine, PCN, shellfish Social Hx: Former tobacco, EtOH, or illicit drug use but stopped only 4 months ago. He is on Methadone 10mg TID for Heroin abuse therapy. Family Hx: none given ROS: SOB, cough No chest pain, abdominal pain, melena, hematuria, hematemesis, hematochezia, depression, anxiety, diarrhea, vision loss, hearing loss, loss of consciousness. Past Patient History - Infectious Disease Hx of Infectious Diseases: None - Past Medical History & Family History Past Medical History?: Yes - Past Social History Smoking Status: Former Smoker - CARDIAC Hx Cardiac Disorders: Yes (cp,mi, double bypass [facility] 4 wks ago) Hx Congestive Heart Failure: Yes Hx Hypertension: Yes Hx Peripheral Edema: Yes (ble +1 pitting) Other/Comment: a fib - PULMONARY Hx Respiratory Disorders: Yes Hx Asthma: Yes Hx Chronic Obstructive Pulmonary Disease (COPD): Yes Hx Emphysema: Yes Hx Pneumonia: Yes Other/Comment: has home o2 and nebulizer machine - NEUROLOGICAL Hx Neurological Disorder: Yes (skull fx as a child) Hx Seizures: No Other/Comment: numb left foot - HEENT Hx HEENT Problems: Yes (missing teeth) Other/Comment: cankor sore right tongue and sore/painful left tongue, difficulty chewing food, c/o facial left cheek cramps on and off x 2 wks - RENAL Hx Chronic Kidney Disease: No - ENDOCRINE/METABOLIC Hx Endocrine Disorders: Yes Hx Diabetes Mellitus Type 2: Yes - HEMATOLOGICAL/ONCOLOGICAL Hx Blood Disorders: Yes Hx Hepatitis C: Yes (active) - INTEGUMENTARY Hx Dermatological Problems: Yes Other/Comment: b/l feet red discolored sensitive to touch can't bear weight, dry toenails, discolored and lumpy elbown, old scar rfa "from shooting heroin" pt stated. c/o generalized itchy skin, healed mid chest scar - MUSCULOSKELETAL/RHEUMATOLOGICAL Hx Musculoskeletal Disorders: Yes Hx Falls: No Hx Fractures: Yes (skull fx as a child) Hx Unsteady Gait: Yes (cane) Other/Comment: b/l feet sensitive to touch difficulty walking unable to bear weight x 3 days - GASTROINTESTINAL Hx Gastrointestinal Disorders: Yes (bloating) Hx Gall Bladder Disease: Yes Other/Comment: constipation on and off x 3 months - GENITOURINARY/GYNECOLOGICAL Hx Genitourinary Disorders: No - PSYCHIATRIC Hx Substance Use: Yes (quit ivda heroin 1 yr ago on methadone) Other/Comment: hx ivda quit heroin 1 yr ago on methadone 35 mg 1 po daily, gets methadone from [id number] - SURGICAL HISTORY Hx Surgeries: Yes Hx Cardiac Catheterization: Yes (2005) Hx Cholecystectomy: Yes (10/13/14) Hx Coronary Stent: Yes (x2) Hx Open Heart Surgery: Yes (2018) - ANESTHESIA Hx Anesthesia: Yes Hx Anesthesia Reactions: No Hx Malignant Hyperthermia: No Meds Allergies/Adverse Reactions: Allergies Allergy/AdvReac Type Severity Reaction Status Date / Time iodine Allergy Severe SHORTNESS Verified 06/11/18 00:31 OF BREATH Penicillins Allergy RASH Verified 06/11/18 00:31 shellfish derived Allergy ITCHING Verified 06/11/18 00:31 Iodinated Contrast- Oral and AdvReac Severe RASH Verified 06/11/18 00:31 IV Dye [Iodinated Contrast Media - IV Dye] - Medications Medications: Current Medications Acetaminophen (Tylenol 325mg Tab) 650 mg PO Q6H PRN PRN Reason: Fever >100.4 F Albuterol/Ipratropium (Duoneb 3 Mg/0.5 Mg (3 Ml) Ud) 3 ml IH Q2H PRN PRN Reason: Shortness of Breath Albuterol/Ipratropium (Duoneb 3 Mg/0.5 Mg (3 Ml) Ud) 3 ml IH [id number] [facility] Last Admin: 06/11/18 15:08 Dose: 3 ml Apixaban (Eliquis) 5 mg PO BID [facility]; Protocol Dextrose (Dextrose 50% Inj) 0 ml IV STAT PRN; Protocol PRN Reason: Hypoglycemia Protocol Folic Acid (Folic Acid) 1 mg PO DAILY [facility] Heparin Sodium (Porcine) (Heparin) 5,000 units SC Q8 [facility]; Protocol Last Admin: 06/11/18 15:08 Dose: 5,000 units Dextrose (Dextrose 5% In Water 1000 Ml) 1,000 mls @ 0 mls/hr IV .Q0M PRN; Protocol PRN Reason: Hypoglycemia Protocol Insulin Human Lispro (Humalog Low) 0 units SC ACHS [facility]; Protocol Last Admin: 06/11/18 11:59 Dose: Not Given Magnesium Chloride (Slow-Mag) 64 mg PO DAILY [facility] Methylprednisolone (Solu-Medrol) 40 mg IVP Q8 [facility] Last Admin: 06/11/18 15:13 Dose: Not Given Metoprolol Tartrate (Lopressor) 25 mg PO BID [facility] Last Admin: 06/11/18 11:24 Dose: 25 mg Multivitamins (Thera Tab) 1 tab PO DAILY [facility] Oseltamivir Phosphate (Tamiflu Cap) 75 mg PO BID [facility]; Protocol Stop: 06/16/18 01:54 Last Admin: 06/11/18 12:01 Dose: 75 mg Pantoprazole Sodium (Protonix Ec Tab) 40 mg PO 0600 [facility] Last Admin: 06/11/18 06:24 Dose: 40 mg Physical Exam - Constitutional Appears: Agitated - Head Exam Head Exam: ATRAUMATIC, NORMOCEPHALIC - Eye Exam Eye Exam: EOMI, PERRL Pupil Exam: NORMAL ACCOMODATION, PERRL - ENT Exam ENT Exam: Mucous Membranes Moist, Normal External Ear Exam, TM's Normal Bilaterally Additional comments: tongue ulcer - Respiratory Exam Respiratory Exam: Clear to Auscultation Bilateral, NORMAL BREATHING PATTERN. absent: Rales, Rhonchi, Wheezes - Cardiovascular Exam Cardiovascular Exam: Tachycardia, RRR, +S1, +S2 - GI/Abdominal Exam GI & Abdominal Exam: Normal Bowel Sounds, Soft. absent: Distended, Tenderness - Extremities Exam Extremities exam: Positive for: full ROM Additional comments: bilateral lower extremities with venous stasis changes bilateral ankles tender to palpation - Neurological Exam Neurological exam: Alert, CN II-XII Intact, Normal Gait, Oriented x3 - Psychiatric Exam Psychiatric exam: Normal Affect, Normal Mood - Skin Skin Exam: Intact, Normal Color Results - Vital Signs Recent Vital Signs: Last Vital Signs Temp 101.3 F H 06/11/18 16:54 Pulse 102 H 06/11/18 16:54 Resp 19 06/11/18 16:54 BP 158/88 H 06/11/18 16:54 Pulse Ox 96 06/11/18 16:54 - Labs Result Diagrams: 06/11/18 07:00 06/11/18 07:00 Labs: Laboratory Results - last 24 hr 06/11/18 06/11/18 06/11/18 00:41 00:41 00:41 WBC 4.3 L D RBC 4.78 Hgb 13.2 L Hct 40.0 L MCV 83.7 MCH 27.6 MCHC 33.0 RDW 14.0 Plt Count 193 MPV 9.3 Neut % (Auto) 51.2 Lymph % (Auto) 21.4 L [place] % (Auto) 22.8 H Eos % (Auto) 4.4 Baso % (Auto) 0.2 Lymph # (Auto) 0.9 L [place] # (Auto) 1.0 H Eos # (Auto) 0.2 Baso # (Auto) 0.01 Absolute Neuts (auto) 2.19 Neutrophils % (Manual) 54 Band Neutrophils % 1 Lymphocytes % (Manual) 20 L Monocytes % (Manual) 21 H Eosinophils % (Manual) 4 H Platelet Evaluation Normal PT 16.0 H INR 1.44 APTT 39.7 H Sodium 134 Potassium 4.5 Chloride 99 Carbon Dioxide 28 Anion Gap 12 BUN 10 Creatinine 0.7 L Est GFR ( Amer) > 60 Est GFR (Non-Af Amer) > 60 POC Glucose (mg/dL) Random Glucose 177 H Hemoglobin A1c Calcium 8.7 Phosphorus Magnesium 1.7 Total Bilirubin 1.0 AST 102 H ALT 53 Alkaline Phosphatase 102 Lactate Dehydrogenase 579 Total Creatine Kinase 155 Troponin I < 0.01 NT-Pro-B Natriuret Pep 207 Total Protein 7.4 Albumin 3.8 Globulin 3.6 Albumin/Globulin Ratio 1.0 L 25-OH Vitamin D Total TSH 3rd Generation Urine Opiates Screen Urine Methadone Screen Ur Barbiturates Screen Ur Phencyclidine Scrn Ur Amphetamines Screen U Benzodiazepines Scrn U Oth Cocaine Metabols U Cannabinoids Screen Alcohol, Quantitative Hepatitis A IgM Ab Hep Bs Antigen Hep B Core IgM Ab Hepatitis C Antibody Influenza Typ A,B (EIA) 06/11/18 06/11/18 06/11/18 00:41 00:41 00:41 WBC RBC Hgb Hct MCV MCH MCHC RDW Plt Count MPV Neut % (Auto) Lymph % (Auto) [place] % (Auto) Eos % (Auto) Baso % (Auto) Lymph # (Auto) [place] # (Auto) Eos # (Auto) Baso # (Auto) Absolute Neuts (auto) Neutrophils % (Manual) Band Neutrophils % Lymphocytes % (Manual) Monocytes % (Manual) Eosinophils % (Manual) Platelet Evaluation PT INR APTT Sodium Potassium Chloride Carbon Dioxide Anion Gap BUN Creatinine Est GFR ( Amer) Est GFR (Non-Af Amer) POC Glucose (mg/dL) Random Glucose Hemoglobin A1c 7.1 H D Calcium Phosphorus Magnesium Total Bilirubin AST ALT Alkaline Phosphatase Lactate Dehydrogenase Total Creatine Kinase Troponin I NT-Pro-B Natriuret Pep Total Protein Albumin Globulin Albumin/Globulin Ratio 25-OH Vitamin D Total TSH 3rd Generation 2.65 Urine Opiates Screen Urine Methadone Screen Ur Barbiturates Screen Ur Phencyclidine Scrn Ur Amphetamines Screen U Benzodiazepines Scrn U Oth Cocaine Metabols U Cannabinoids Screen Alcohol, Quantitative < 10 Hepatitis A IgM Ab Negative Hep Bs Antigen Negative Hep B Core IgM Ab Negative Hepatitis C Antibody Reactive Influenza Typ A,B (EIA) 06/11/18 06/11/18 06/11/18 00:41 02:02 06:40 WBC RBC Hgb Hct MCV MCH MCHC RDW Plt Count MPV Neut % (Auto) Lymph % (Auto) [place] % (Auto) Eos % (Auto) Baso % (Auto) Lymph # (Auto) [place] # (Auto) Eos # (Auto) Baso # (Auto) Absolute Neuts (auto) Neutrophils % (Manual) Band Neutrophils % Lymphocytes % (Manual) Monocytes % (Manual) Eosinophils % (Manual) Platelet Evaluation PT INR APTT Sodium Potassium Chloride Carbon Dioxide Anion Gap BUN Creatinine Est GFR ( Amer) Est GFR (Non-Af Amer) POC Glucose (mg/dL) Random Glucose Hemoglobin A1c Calcium Phosphorus Magnesium Total Bilirubin AST ALT Alkaline Phosphatase Lactate Dehydrogenase Total Creatine Kinase Troponin I NT-Pro-B Natriuret Pep Total Protein Albumin Globulin Albumin/Globulin Ratio 25-OH Vitamin D Total 43.7 TSH 3rd Generation Urine Opiates Screen Negative Urine Methadone Screen Positive H Ur Barbiturates Screen Negative Ur Phencyclidine Scrn Negative Ur Amphetamines Screen Negative U Benzodiazepines Scrn Negative U Oth Cocaine Metabols Negative U Cannabinoids Screen Negative Alcohol, Quantitative Hepatitis A IgM Ab Hep Bs Antigen Hep B Core IgM Ab Hepatitis C Antibody Influenza Typ A,B (EIA) Negative for flu a/b 06/11/18 06/11/18 06/11/18 07:00 07:00 11:56 WBC 4.0 L RBC 4.25 Hgb 11.4 L Hct 35.3 L MCV 83.1 MCH 26.8 MCHC 32.3 RDW 14.1 Plt Count 165 MPV 9.1 Neut % (Auto) 46.0 L Lymph % (Auto) 38.0 H [place] % (Auto) 11.9 H Eos % (Auto) 3.8 Baso % (Auto) 0.3 Lymph # (Auto) 1.5 [place] # (Auto) 0.5 Eos # (Auto) 0.2 Baso # (Auto) 0.01 Absolute Neuts (auto) 1.82 Neutrophils % (Manual) Band Neutrophils % Lymphocytes % (Manual) Monocytes % (Manual) Eosinophils % (Manual) Platelet Evaluation PT INR APTT Sodium 135 Potassium 4.2 Chloride 102 Carbon Dioxide 27 Anion Gap 10 BUN 7 Creatinine 0.7 L Est GFR ( Amer) > 60 Est GFR (Non-Af Amer) > 60 POC Glucose (mg/dL) 128 H Random Glucose 74 Hemoglobin A1c Calcium 8.4 Phosphorus 4.1 Magnesium 1.5 L Total Bilirubin 1.1 AST 78 H D ALT 42 Alkaline Phosphatase 91 Lactate Dehydrogenase Total Creatine Kinase Troponin I < 0.01 NT-Pro-B Natriuret Pep Total Protein 6.4 Albumin 3.2 Globulin 3.2 Albumin/Globulin Ratio 1.0 L 25-OH Vitamin D Total TSH 3rd Generation Urine Opiates Screen Urine Methadone Screen Ur Barbiturates Screen Ur Phencyclidine Scrn Ur Amphetamines Screen U Benzodiazepines Scrn U Oth Cocaine Metabols U Cannabinoids Screen Alcohol, Quantitative Hepatitis A IgM Ab Hep Bs Antigen Hep B Core IgM Ab Hepatitis C Antibody Influenza Typ A,B (EIA) 06/11/18 06/11/18 12:55 16:50 WBC RBC Hgb Hct MCV MCH MCHC RDW Plt Count MPV Neut % (Auto) Lymph % (Auto) [place] % (Auto) Eos % (Auto) Baso % (Auto) Lymph # (Auto) [place] # (Auto) Eos # (Auto) Baso # (Auto) Absolute Neuts (auto) Neutrophils % (Manual) Band Neutrophils % Lymphocytes % (Manual) Monocytes % (Manual) Eosinophils % (Manual) Platelet Evaluation PT INR APTT Sodium Potassium Chloride Carbon Dioxide Anion Gap BUN Creatinine Est GFR ( Amer) Est GFR (Non-Af Amer) POC Glucose (mg/dL) 100 Random Glucose Hemoglobin A1c Calcium Phosphorus Magnesium Total Bilirubin AST ALT Alkaline Phosphatase Lactate Dehydrogenase Total Creatine Kinase Troponin I < 0.01 NT-Pro-B Natriuret Pep Total Protein Albumin Globulin Albumin/Globulin Ratio 25-OH Vitamin D Total TSH 3rd Generation Urine Opiates Screen Urine Methadone Screen Ur Barbiturates Screen Ur Phencyclidine Scrn Ur Amphetamines Screen U Benzodiazepines Scrn U Oth Cocaine Metabols U Cannabinoids Screen Alcohol, Quantitative Hepatitis A IgM Ab Hep Bs Antigen Hep B Core IgM Ab Hepatitis C Antibody Influenza Typ A,B (EIA) Assessment & Plan - Assessment and Plan (Free Text) Assessment: 58 yo male with multiple medical issues who claims to be compliant with his meds but is not. The patient has frequent visits to [facility] and [facility]. SOB is a frequent complaint for this patient. The patient is supposed to be on a Life Vest but he refuses to wear it. Last HIV test was 05/26/2018 which was negative. CABG was done in 12/2017. He has been given antibiotics in the past but he has rarely filled them. The patient has tolerated Cephalosporins in the past. Can start patient on Cefepime as he has tolerated doses in [facility]. Thank you for allowing me to participate in the care of the patient, we will follow with you.
--- NOTE | 2018-06-11 20:54 | CON ---
DATE: 06/11/2018 REASON FOR CONSULTATION: Shortness of breath. HISTORY OF PRESENT ILLNESS: The patient is a 58-year-old male who recently underwent double bypass surgery in 12/2017 at [facility] INGRAM to the LAD and a saphenous vein graft to an obtuse marginal branch. The patient has a history of coronary stenting in the past and the patient presented because of shortness of breath. The patient stated that he is compliant with his medications, which include aspirin and Eliquis. The patient is unaware of any history of DVT or pulmonary embolism in the past. SOCIAL HISTORY: The patient is a nonsmoker. He is currently on methadone program. MEDICATIONS: Albuterol inhaler every 2 hours p.r.n., heparin 5000 units every 8 hours, Lopressor 25 mg twice a day, Plavix 75 mg once a day, Solu-Medrol 40 mg intravenously every 8 hours, Protonix 40 mg day, and vancomycin 500 mg intravenously every 12 hours. REVIEW OF SYSTEMS: No fever or chills. No vomiting or diarrhea. PHYSICAL EXAMINATION: GENERAL: The patient is a middle-aged male who does not appear to be in acute distress. VITAL SIGNS: Blood pressure 132/77, heart rate 88, temperature 98.2, and respirations 20. HEENT: Normocephalic. CHEST: Clear. HEART: S1 and S2 regular. ABDOMEN: Soft. EXTREMITIES: Trace leg edema. LABORATORY DATA: Hemoglobin and hematocrit 11.4 and 35.3, white count 4, and platelet count 265,000. Urine drug screen is positive for methadone. Today's SMA-7 is within normal limits except for creatinine 0.7. Magnesium today is below normal at 1.5, yesterday magnesium was within normal limits. TSH reveals within normal limits. INR is 1.44. EKG reveals sinus tachycardia rate of 115, LVH with repolarization changes, left atrial enlargement, and old inferior wall infarct. Chest x-ray revealed sternotomy sutures. No cardiomegaly. Questionable right lower lobe infiltrate. ASSESSMENT: 1. Coronary artery disease, status post recent double bypass surgery where the patient left internal mammary artery to the left anterior descending and saphenous vein graft to the obtuse marginal branch in 12/2017 at [facility]. 2. Chronic obstructive lung disease. 3. Questionable history of atrial fibrillation, the patient was on Eliquis therapy. 4. Hypomagnesemia. RECOMMENDATIONS: Continue current Lopressor 25 mg twice a day, Solu-Medrol 40 mg intravenously every 8 hours, and vancomycin 500 mg intravenously every 12 hours. Obtain an echocardiac study and is on Plavix 75 mg daily. Obtain the patient's medical records from his recent admissions at [facility] in 12/2017. Emory Plata MD
[2018-06-11] MEDS: Cefepime 1gm in NS 100ml 1 GM/100 ML BAG IVPB SCH (21:51)
[2018-06-11] MEDS ORDERED: Piperacillin/Tazobact 3.375 gm 100 ML IVPB SCH (22:00)
[2018-06-11] MEDS ORDERED: Vancomycin 500mg in NS 500 MG/100 ML BAG IVPB SCH (22:00)
[2018-06-11] MEDS: POLYETHYLENE GLYCOL 3350 17 GM/Dose PACKET PO PRN (22:45)
[2018-06-12] MEDS: Albuterol-Ipratrop 3 mg / 0.5 (3 ml) UD IH SCH ×4 (01:14→20:02)
[2018-06-12] MEDS: Pantoprazole 40 mg EC Tab PO SCH (05:32)
[2018-06-12] MEDS: MethylPREDNISolone 40 mg Vial IVP SCH ×3 (05:32→21:34)
[2018-06-12 06:40] LABS: BASO # 0.01 K/mm3 (0.0-2.0); BASO % 0.7 % (0.0-3.0); LYMPH # 0.5 (1.2-3.4); LYMPH % 31.5 % (22.0-35.0); MEAN CELL VOLUME 82.7 fl (80.0-105.0); MEAN CORPUSCULAR HEMOGLOBIN 27.1 pg (25.0-35.0); MEAN CORPUSCULAR HGB CONC 32.7 g/dl (31.0-37.0); MEAN PLATELET VOLUME 9.7 fl (7.0-11.0); MONO # 0.1 (0.1-0.6); MONO % 6.7 % (1.0-6.0); RBC 4.8 10^6/uL (3.5-6.1); RED CELL DISTRIBUTION WIDTH 13.8 % (11.5-14.5)
[2018-06-12 07:14] LABS: ALBUMIN 3.6 g/dL (3.0-4.8); ALT/SGPT 49 U/L (7-56); AST/SGOT 71 U/L (17-59); BLOOD UREA NITROGEN 9 mg/dL (7-21); CALCIUM 9.1 mg/dL (8.4-10.5); GFR NON-AFRICAN AMERICAN > 60
[2018-06-12 07:16] LABS: WHITE BLOOD COUNT 1.5 10^3/uL (4.5-11.0)
[2018-06-12] MEDS ORDERED: Magnesium Sulfate 2 gm/50 ml 2 GM/50 ML BAG IVPB ONE (07:23)
--- NOTE | 2018-06-12 07:29 | CP.PCM.PN ---
<Thiago Chapman - Last Filed: 06/12/18 12:54> Subjective - Date & Time of Evaluation Date of Evaluation: 06/12/18 Time of Evaluation: 07:27 - Subjective Subjective: Thiago Chapman DO, PGY-1 Hospitalist Progress Note for Dr. Rola Dunbar Patient was seen and examined at bedside this AM. He offers no new complaints this AM and states his SOB and cough have both improved since yesterday. He states the b/l LE swelling is unchanged. Objective - Vital Signs/Intake and Output Vital Signs (last 24 hours): Temp Pulse Resp BP Pulse Ox 99.6 F 84 20 164/98 H 93 L 06/11/18 18:00 06/12/18 06:00 06/11/18 18:00 06/11/18 18:35 06/11/18 18:00 Intake and Output: 06/12/18 06/12/18 06:59 18:59 Intake Total 1260 Output Total 3100 Balance -1840 - Medications Medications: Current Medications Acetaminophen (Tylenol 325mg Tab) 650 mg PO Q6H PRN PRN Reason: Fever >100.4 F Last Admin: 06/11/18 17:33 Dose: 650 mg Albuterol/Ipratropium (Duoneb 3 Mg/0.5 Mg (3 Ml) Ud) 3 ml IH Q2H PRN PRN Reason: Shortness of Breath Albuterol/Ipratropium (Duoneb 3 Mg/0.5 Mg (3 Ml) Ud) 3 ml IH [id number] [facility] Last Admin: 06/12/18 01:14 Dose: 3 ml Apixaban (Eliquis) 5 mg PO BID [facility]; Protocol Last Admin: 06/11/18 18:32 Dose: 5 mg Dextrose (Dextrose 50% Inj) 0 ml IV STAT PRN; Protocol PRN Reason: Hypoglycemia Protocol Folic Acid (Folic Acid) 1 mg PO DAILY [facility] Heparin Sodium (Porcine) (Heparin) 5,000 units SC Q8 [facility]; Protocol Last Admin: 06/12/18 05:33 Dose: 5,000 units Dextrose (Dextrose 5% In Water 1000 Ml) 1,000 mls @ 0 mls/hr IV .Q0M PRN; Protocol PRN Reason: Hypoglycemia Protocol Cefepime HCl (Maxipime 1gm) 1 gm in 100 mls @ 100 mls/hr IVPB Q12 [facility]; Protocol Last Admin: 06/11/18 21:51 Dose: 100 mls/hr Magnesium Sulfate (Magnesium Sulfate 2 Gm/50 Ml Water) 2 gm in 50 mls @ 50 mls/hr IVPB ONCE ONE Stop: 06/12/18 08:22 Insulin Human Lispro (Humalog Low) 0 units SC ACHS [facility]; Protocol Last Admin: 06/11/18 22:00 Dose: Not Given Magnesium Chloride (Slow-Mag) 64 mg PO DAILY [facility] Last Admin: 06/11/18 17:33 Dose: 64 mg Methadone HCl (Methadone) 35 mg PO DAILY [facility] Methylprednisolone (Solu-Medrol) 40 mg IVP Q8 [facility] Last Admin: 06/12/18 05:32 Dose: 40 mg Metoprolol Tartrate (Lopressor) 25 mg PO BID [facility] Last Admin: 06/11/18 18:35 Dose: 25 mg Multivitamins (Thera Tab) 1 tab PO DAILY [facility] Pantoprazole Sodium (Protonix Ec Tab) 40 mg PO 0600 [facility] Last Admin: 06/12/18 05:32 Dose: 40 mg Polyethylene Glycol (Miralax) 17 gm PO DAILY PRN PRN Reason: Constipation Last Admin: 06/11/18 22:45 Dose: 17 gm - Labs Labs: 06/12/18 06:20 06/12/18 06:20 PT 16.0 SECONDS (9.4-12.5) H 06/11/18 00:41 INR 1.44 06/11/18 00:41 APTT 39.7 Seconds (26.9-38.3) H 06/11/18 00:41 - Constitutional Appears: Non-toxic, No Acute Distress - Head Exam Head Exam: ATRAUMATIC, NORMOCEPHALIC - Eye Exam Eye Exam: EOMI, PERRL - ENT Exam ENT Exam: Mucous Membranes Moist - Neck Exam Neck Exam: Full ROM, Normal Inspection Additional comments: no significant JVP - Respiratory Exam Respiratory Exam: Rales (loudest RLL, improved from yesterday). absent: Accessory Muscle Use, Rhonchi, Wheezes, Respiratory Distress - Cardiovascular Exam Cardiovascular Exam: REGULAR RHYTHM, RRR, +S1, +S2. absent: Gallop, Rubs, Murmur - GI/Abdominal Exam GI & Abdominal Exam: Soft, Normal Bowel Sounds. absent: Guarding, Tenderness - Extremities Exam Extremities Exam: Full ROM, Pedal Edema (trace non-pitting edema of b/l ankles) - Back Exam Back Exam: NORMAL INSPECTION - Neurological Exam Neurological Exam: Alert, Awake, Oriented x3 - Psychiatric Exam Psychiatric exam: Normal Affect, Normal Mood - Skin Skin Exam: Dry, Intact, Warm Assessment and Plan - Assessment and Plan (Free Text) Assessment: 58 yo M with PMH of systolic CHF (2/2 ischemic CM last EF 17%), CAD (s/p CABG 12/2017), HTN, DM2, Hep C, and polysubstance abuse is admitted for worsening SOB, cough, and LE swelling. Patient is also febrile on admission and was seen in ED yesterday for fever/chills. Plan: Dyspnea May be 2/2 HCAP vs CHF exacerbation vs COPD exacerbation Mild infiltrate seen in right middle and RLL HCAP treatment with cefepime per ID recs Rapid influenza negative, august d/c tamiflu and airborne pxns Continue duo-neb scheduled and PRN Wean solumedrol to 30 mg IVP q12h ID following, all recs appreciated Hypomagnesemia Replaced Recheck in AM Transaminitis Suspect most likely 2/2 prior alcoholic hepatitis Trending down Continue to monitor LE Swelling Mild, non-pitting edema seen on exam Improved from yesterday F/u additional cardiology recs Hx CHF Per prior records, CHF is 2/2 severe ischemic CM Repeat TTE pending Per patient history, he had previously worn a life vest but did not follow up with EP regularly Continue lopressor Monitor electrolytes closely Further recs per cardiology Hx AFib Per prior records, patient also has hx of paroxysmal AFib Continue home eliquis Further recs per cardiology Hx DM2 A1c this admission 7.1 Continue ISS, hypoglycemic protocol Hx HTN Continue lopressor Will also add PRN hydralazine as patient remained hypertensive overnight Continue to monitor Hx polysubstance abuse Continue patient education for abstinence Social work consult DVT/GI PPX: Home eliquis/protonix Full Code HHD Monitor on remote tele Patient seen, examined, and plan discussed with my attending Mary Carmen MooreO. IM Resident PGY-1 Pager: [phone] <Klaudia Dunbar R - Last Filed: 06/14/18 07:53> Objective - Vital Signs/Intake and Output Vital Signs (last 24 hours): Temp Pulse Resp BP Pulse Ox 97.6 F 101 H 20 119/79 95 06/13/18 08:20 06/14/18 02:00 06/13/18 08:20 06/13/18 17:09 06/13/18 08:20 Intake and Output: 06/14/18 06/14/18 06:59 18:59 Intake Total 1980 Output Total 3150 Balance -1170 - Medications Medications: Current Medications Acetaminophen (Tylenol 325mg Tab) 650 mg PO Q6H PRN PRN Reason: Fever >100.4 F Last Admin: 06/12/18 18:14 Dose: 650 mg Albuterol/Ipratropium (Duoneb 3 Mg/0.5 Mg (3 Ml) Ud) 3 ml IH Q2H PRN PRN Reason: Shortness of Breath Albuterol/Ipratropium (Duoneb 3 Mg/0.5 Mg (3 Ml) Ud) 3 ml IH [id number] [facility] Last Admin: 06/14/18 01:36 Dose: 3 ml Apixaban (Eliquis) 5 mg PO BID [facility]; Protocol Last Admin: 06/13/18 17:08 Dose: 5 mg Arformoterol Tartrate (Brovana) 15 mcg IH [id number] [facility] Budesonide (Pulmicort Respules) 0.5 mg IH [id number] [facility] Dextrose (Dextrose 50% Inj) 0 ml IV STAT PRN; Protocol PRN Reason: Hypoglycemia Protocol Folic Acid (Folic Acid) 1 mg PO DAILY [facility] Last Admin: 06/13/18 09:11 Dose: 1 mg Dextrose (Dextrose 5% In Water 1000 Ml) 1,000 mls @ 0 mls/hr IV .Q0M PRN; Protocol PRN Reason: Hypoglycemia Protocol Cefepime HCl (Maxipime 1gm) 1 gm in 100 mls @ 100 mls/hr IVPB Q12 [facility]; Protocol Last Admin: 06/13/18 21:48 Dose: 100 mls/hr Insulin Human Lispro (Humalog Low) 0 units SC ACHS [facility]; Protocol Last Admin: 06/13/18 23:25 Dose: 2 units Magnesium Chloride (Slow-Mag) 64 mg PO DAILY [facility] Last Admin: 06/13/18 09:13 Dose: 64 mg Methadone HCl (Methadone) 35 mg PO DAILY [facility] Last Admin: 06/13/18 09:12 Dose: 35 mg Methylprednisolone (Solu-Medrol) 30 mg IVP Q8 [facility] Last Admin: 06/14/18 06:02 Dose: 30 mg Metoprolol Tartrate (Lopressor) 25 mg PO BID [facility] Last Admin: 06/13/18 17:09 Dose: 25 mg Multivitamins (Thera Tab) 1 tab PO DAILY [facility] Last Admin: 06/13/18 09:13 Dose: 1 tab Pantoprazole Sodium (Protonix Ec Tab) 40 mg PO 0600 [facility] Last Admin: 06/14/18 06:02 Dose: 40 mg Polyethylene Glycol (Miralax) 17 gm PO DAILY PRN PRN Reason: Constipation Last Admin: 06/13/18 09:12 Dose: 17 gm - Labs Labs: 06/14/18 06:20 06/14/18 06:20 PT 16.0 SECONDS (9.4-12.5) H 06/11/18 00:41 INR 1.44 06/11/18 00:41 APTT 39.7 Seconds (26.9-38.3) H 06/11/18 00:41 Attending/Attestation - Attestation I have personally seen and examined this patient.: Yes I have fully participated in the care of the patient.: Yes I have reviewed all pertinent clinical information, including history, physical exam and plan: Yes Notes (Text): Patient seen and examined by me with resident at 9:45AM on 06/12/18. Case including HPI, physical exam, and assessment and plan discussed with resident. Agree with above with following additions/corrections. Patient is a 58-year-old, past medical history significant for asthma, COPD, essential hypertension, coronary artery disease status post CABG, polysubstance abuse, atrial fibrillation on Eliquis, ischemic cardiomyopathy, and hepatitis C who presented to the emergency room with shortness of breath and cough. Patient states he feels ok. Complains of nasal congestion and mouth pain. Also complains of shortness of breath. Patient states that this has been going on since having his CABG in December 2017. Patient denies any nausea, vomiting, or abdominal pain. No headaches or dizziness. No lightheadedness. No chest pain or palpitations. No diarrhea or constipation. No dysuria. Physical exam: General: Awake and alert lying in bed in no acute distress. HEENT: Normocephalic, atraumatic. Extraocular muscles intact, pupils equal and reactive, no scleral icterus. Oropharynx is pink and moist. No pharyngeal erythema or exudate appreciated. Neck is supple. Cardiovascular: Normal rhythm. Normal S1 and S2. No murmurs, rubs, or gallops appreciated Pulmonary: Normal respiratory effort. Decreased breath sounds. No rhonchi, rales, or wheezing appreciated. Gastrointestinal: Soft, nondistended. Nontender. Positive bowel sounds all 4 quadrants. No guarding. Musculoskeletal: Moves all extremities. No calf tenderness. No edema appreciated. Central nervous system: AAOx3, CN 2-12 grossly intact. Dermatologic: Skin warm and dry. Assessment and plan: Patient is a 58-year-old, past medical history significant for asthma, COPD, essential hypertension, coronary artery disease status post CABG, polysubstance abuse, atrial fibrillation on Eliquis, ischemic cardiomyopathy, and hepatitis C who presented to the emergency room with shortness of breath and cough. 1. Fevers of unknown origin. Chest x-ray on 06/11/2018. Radiologist showed no active disease. CT abdomen and pelvis per radiologist showed no definitive acute abdominal or pelvic findings; no ascites or free intraperitoneal gas collection; prior cholecystectomy; prominent fecal loading throughout the colon sparing rectosigmoid; enlarged prostate gland; bibasal pulmonary emphysema. Continue Maxipime. ID following, recommendations appreciated. Patient afebrile today. Patient also with leukopenia. Influenza negative. 2. COPD exacerbation with history of chronic respiratory failure on home oxygen. Continue Solu-Medrol. Continue nebulizer treatments. Continue O2 via nasal cannula. 3. Chronic systolic CHF. Ischemic cardiomyopathy. Cardiology following, recommendations appreciated. 2-D echo report pending. Patient not in acute exacerbation. Continue Lopressor. 4. CAD s/p CABG. Continue Lopressor. Patient on eliquis. Per Patient, no longer takes Plavix. Will discuss with eyeglass fitter. Cardiology following, recommendations appreciated. Troponins within normal limits. 2D echo read pending. 5. Paroxysmal atrial fibrillation. Continue home Eliquis. Continue Lopressor. 6. Hypomagn[address]emia. Place magnesium. Follow up repeat labs in a.m. 7. Type 2 diabetes. Hemoglobin A1c 7.1. Continue insulin sliding scale. Monitor Accu-Cheks. 8. Essential hypertension. Continue Lopressor. 9. History of polysubstance abuse now on methadone. Methodone confirmed with patient's Methadone clinic [facility]. 10. Constipation. MiraLAX as needed. 11. Hepatitis C. Patient will need outpatient follow up, discussed with patient. 12. GI/DVT prophylaxis. Eliquis/Protonix. 13. Patient is a full code. Case discussed in detail with patient regarding current diagnosis and treatment plan. All questions answered.
--- NOTE | 2018-06-12 08:14 | CARD ---
APPROVED REPORT Date of service: 06/11/2018 EKG Measurement Heart [id number] <Conclusion> Sinus tachycardia Biatrial enlargement Left ventricular hypertrophy with repolarization abnormality Possible Inferior infarct, age undetermined Abnormal ECG
[2018-06-12] MEDS: Insulin Lispro (humaLOG) LOW Coverage SC SCH ×4 (08:45→21:38)
[2018-06-12 09:35] LABS: HEMOGLOBIN 13.8 g/dL (14.0-18.0); LYMPH # 0.5 (1.2-3.4); LYMPH % 38.2 % (22.0-35.0); MEAN CELL VOLUME 82.7 fl (80.0-105.0); MEAN CORPUSCULAR HEMOGLOBIN 27.8 pg (25.0-35.0); MEAN CORPUSCULAR HGB CONC 33.7 g/dl (31.0-37.0); MEAN PLATELET VOLUME 9.4 fl (7.0-11.0); MONO % 0.8 % (1.0-6.0); RBC 4.96 10^6/uL (3.5-6.1); RED CELL DISTRIBUTION WIDTH 13.8 % (11.5-14.5)
[2018-06-12 09:45] LABS: WHITE BLOOD COUNT 1.3 10^3/uL (4.5-11.0)
[2018-06-12] MEDS: Multivitamin Therapeutic Tab PO SCH (09:51)
[2018-06-12] MEDS: Magnesium Chloride 64 mg ER Tab PO SCH (09:51)
[2018-06-12] MEDS: Cefepime 1gm in NS 100ml 1 GM/100 ML BAG IVPB SCH ×2 (09:53→21:34)
[2018-06-12] MEDS: POLYETHYLENE GLYCOL 3350 17 GM/Dose PACKET PO PRN (09:55)
--- NOTE | 2018-06-12 11:44 | CT ---
Date of service: 06/11/2018 PROCEDURE: CT Abdomen and Pelvis without intravenous contrast HISTORY: Distended abdomen COMPARISON: None. TECHNIQUE: Helical CT of the abdomen and pelvis was performed without oral or intravenous contrast as per referring physician request. Coronal and sagittal reformats were generated.. Contrast dose: None Radiation dose: Total exam DLP = 256.87 mGy-cm. This CT exam was performed using one or more of the following dose reduction techniques: Automated exposure control, adjustment of the mA and/or kV according to patient size, and/or use of iterative reconstruction technique. FINDINGS: LOWER THORAX: There is lung bases reflect extensive emphysema and [id number] diffuse pulmonary fibrosis. No pleural or pericardial effusion evident. Sternotomy noted status post post CABG. Cardiac size normal. LIVER: Unremarkable. No gross lesion or ductal dilatation. GALLBLADDER AND BILE DUCTS: Prior cholecystectomy apparent. Clinically correlate. PANCREAS: Unremarkable. No gross lesion or ductal dilatation. SPLEEN: Unremarkable. ADRENALS: Unremarkable. No mass. KIDNEYS AND URETERS: Unremarkable. No hydronephrosis. No solid mass. VASCULATURE: Nonaneurysmal abdominal aortic calcific atherosclerotic changes are identified. BOWEL: The stomach is mildly distended with retained food. Prominent fecal loading seen throughout the majority colon sparing the rectosigmoid segment suspicious for constipation nevertheless. No definite pattern of small large-bowel obstruction grossly evident. APPENDIX: Unremarkable. Normal appendix. PERITONEUM: Unremarkable. No free fluid. No free air. LYMPH NODES: Unremarkable. No enlarged lymph nodes. BLADDER: Mid bladder is mildly distended, thin and smooth walled, but with the base up lifted by an enlarged prostate gland. REPRODUCTIVE: Prostate enlargement. BONES: No acute fracture. OTHER FINDINGS: None. IMPRESSION: No definitive acute abdominal or pelvic findings. No ascites or free intra peritoneal gas collection. Prior cholecystectomy. Prominent fecal loading throughout the colon sparing rectosigmoid. Consider an element of constipation. Enlarged prostate gland. Bibasilar pulmonary emphysema. Concordant preliminary report from [facility], 06/11/2018.
--- NOTE | 2018-06-12 15:24 | CARD ---
APPROVED REPORT Date of service: 06/11/2018 EKG Measurement Heart [id number] [id number] <Conclusion> Sinus tachycardia with occasional premature ventricular complexes Left ventricular hypertrophy with repolarization abnormality Possible Inferior infarct, age undetermined Abnormal ECG
[2018-06-12 16:42] LABS: URINE APPEARANCE CLEAR (CLEAR); URINE BILIRUBIN NEGATIVE (NEGATIVE); URINE BLOOD NEGATIVE (NEGATIVE); URINE COLOR YELLOW (YELLOW); URINE GLUCOSE (UA) 100 mg/dL (NEGATIVE); URINE LEUKOCYTE ESTERASE NEGATIVE Leu/uL (NEGATIVE); URINE PROTEIN NEGATIVE mg/dL (<30 mg/dL)
--- NOTE | 2018-06-12 17:03 | CP.PCM.PN ---
Subjective - Date & Time of Evaluation Date of Evaluation: 06/12/18 Time of Evaluation: 15:30 - Subjective Subjective: Infectious Disease Follow Up: June 12, 2018 58 year old male with PMHx of asthma, COPD, HTN, CAD s/p CABG, hepatitis C presenting with chief complaint of shortness of breath and cough which began 3 days ago. Cough is productive with brownish sputum. Patient states he used Ventolin with no relief. Patient had CABG of 2 vessels performed December 2017. Patient also admits to bilateral leg pain and swelling around his ankles. He recently followed up with his PMD Dr. Mason and states there were no issues at that time. Denies fevers, chills, nausea, vomiting, chest pain, abdominal pain, diarrhea, dysuria. Patient with PCN allergy. The patient has frequent visits to both [facility] and [facility]. I last saw patient at [facility] in March 2018. Patient states breathing is better today. He has leukopenia today. Viral etiology? Objective - Vital Signs/Intake and Output Vital Signs (last 24 hours): Temp Pulse Resp BP Pulse Ox 97.5 F L 87 20 127/87 98 06/12/18 08:06 06/12/18 14:00 06/12/18 08:06 06/12/18 09:51 06/12/18 08:06 Intake and Output: 06/12/18 06/12/18 06:59 18:59 Intake Total 1260 Output Total 3100 Balance -1840 - Medications Medications: Current Medications Acetaminophen (Tylenol 325mg Tab) 650 mg PO Q6H PRN PRN Reason: Fever >100.4 F Last Admin: 06/11/18 17:33 Dose: 650 mg Albuterol/Ipratropium (Duoneb 3 Mg/0.5 Mg (3 Ml) Ud) 3 ml IH Q2H PRN PRN Reason: Shortness of Breath Albuterol/Ipratropium (Duoneb 3 Mg/0.5 Mg (3 Ml) Ud) 3 ml IH [id number] [facility] Last Admin: 06/12/18 13:54 Dose: Not Given Apixaban (Eliquis) 5 mg PO BID [facility]; Protocol Last Admin: 06/12/18 09:48 Dose: 5 mg Dextrose (Dextrose 50% Inj) 0 ml IV STAT PRN; Protocol PRN Reason: Hypoglycemia Protocol Folic Acid (Folic Acid) 1 mg PO DAILY [facility] Last Admin: 06/12/18 09:51 Dose: 1 mg Dextrose (Dextrose 5% In Water 1000 Ml) 1,000 mls @ 0 mls/hr IV .Q0M PRN; Protocol PRN Reason: Hypoglycemia Protocol Cefepime HCl (Maxipime 1gm) 1 gm in 100 mls @ 100 mls/hr IVPB Q12 [facility]; Protocol Last Admin: 06/12/18 09:53 Dose: 100 mls/hr Insulin Human Lispro (Humalog Low) 0 units SC ACHS [facility]; Protocol Last Admin: 06/12/18 16:36 Dose: Not Given Magnesium Chloride (Slow-Mag) 64 mg PO DAILY [facility] Last Admin: 06/12/18 09:51 Dose: 64 mg Methadone HCl (Methadone) 35 mg PO DAILY [facility] Last Admin: 06/12/18 09:48 Dose: 35 mg Methylprednisolone (Solu-Medrol) 40 mg IVP Q8 [facility] Last Admin: 06/12/18 15:20 Dose: 40 mg Metoprolol Tartrate (Lopressor) 25 mg PO BID [facility] Last Admin: 06/12/18 09:51 Dose: 25 mg Multivitamins (Thera Tab) 1 tab PO DAILY [facility] Last Admin: 06/12/18 09:51 Dose: 1 tab Pantoprazole Sodium (Protonix Ec Tab) 40 mg PO 0600 [facility] Last Admin: 06/12/18 05:32 Dose: 40 mg Polyethylene Glycol (Miralax) 17 gm PO DAILY PRN PRN Reason: Constipation Last Admin: 06/12/18 09:55 Dose: 17 gm - Labs Labs: 06/12/18 09:25 06/12/18 06:20 PT 16.0 SECONDS (9.4-12.5) H 06/11/18 00:41 INR 1.44 06/11/18 00:41 APTT 39.7 Seconds (26.9-38.3) H 06/11/18 00:41 - Constitutional Appears: Agitated - Head Exam Head Exam: ATRAUMATIC, NORMOCEPHALIC - Eye Exam Eye Exam: EOMI, PERRL Pupil Exam: NORMAL ACCOMODATION, PERRL - ENT Exam ENT Exam: Mucous Membranes Moist, Normal External Ear Exam, TM's Normal Bilaterally Additional comments: tongue ulcer - appears to be aphthous ulceration - Neck Exam Neck Exam: Full ROM, Normal Inspection - Respiratory Exam Respiratory Exam: Clear to Ausculation Bilateral, Rales (right sided mild), NORMAL BREATHING PATTERN. absent: Rhonchi, Wheezes - Cardiovascular Exam Cardiovascular Exam: REGULAR RHYTHM, RRR, +S1, +S2 - GI/Abdominal Exam GI & Abdominal Exam: Soft, Normal Bowel Sounds. absent: Distended, Tenderness - Extremities Exam Extremities Exam: Full ROM Additional comments: bilateral lower extremities with venous stasis changes bilateral ankles tender to palpation - Neurological Exam Neurological Exam: Alert, Awake, CN II-XII Intact, Oriented x3 - Psychiatric Exam Psychiatric exam: Normal Affect, Normal Mood - Skin Skin Exam: Intact, Normal Color Assessment and Plan - Assessment and Plan (Free Text) Assessment: 58 yo male with multiple medical issues who claims to be compliant with his meds but is not. The patient has frequent visits to [facility] and [facility]. SOB is a frequent complaint for this patient. The patient is supposed to be on a Life Vest but he refuses to wear it. Last HIV test was 05/26/2018 which was negative. CABG was done in 12/2017. He has been given antibiotics in the past but he has rarely filled them. The patient has tolerated Cephalosporins in the past. Continue on Cefepime as he has tolerated doses in [facility]. Appears better than yesterday. Thank you for allowing me to participate in the care of the patient, we will follow with you.
--- NOTE | 2018-06-12 17:17 | CARD ---
APPROVED REPORT Date of service: 06/12/2018 EXAM: Two-dimensional and M-mode echocardiogram with Doppler and color Doppler. INDICATION Congestive Heart Failure 2D DIMENSIONS Left Atrium (2D)3.6 (1.6-4.0cm)IVSd1.1 (0.7-1.1cm) LVDd5.1 (3.9-5.9cm)PWd0.9 (0.7-1.1cm) LVDs4.1 (2.5-4.0cm)FS (%) 19.5 % LVEF (%)39.8 (>50%) M-Mode DIMENSIONS Aortic Root3.20 (2.2-3.7cm)Aortic Cusp Exc.1.30 (1.5-2.0cm) Aortic Valve AoV Peak Xdxmpyrl14.2cm/Sonya Peak GR.3mmHg Mitral Valve MV E Yewmrxek52.2cm/sMV A Qcldeyrp42.1cm/sE/A ratio0.8 TDI E/Lateral E'0.0E/Medial E'0.0 Tricuspid Valve TR Peak [id number]/sRAP [id number] Peak Gr.19mmHg [id number] LEFT VENTRICLE The left ventricle is normal size. There is normal left ventricular wall thickness. The systolic function is moderately impaired. There is severe hypokinesis of the apical, anterior and anteroseptal wall segments. RIGHT VENTRICLE The right ventricle is normal size. The right ventricular systolic function is normal. ATRIA The left atrium size is normal. The right atrium size is normal. The interatrial septum is intact with no evidence for an atrial septal defect. AORTIC VALVE The aortic valve is normal in structure. No aortic regurgitation is present. There is no aortic valvular stenosis. MITRAL VALVE The mitral valve is normal in structure. Mitral regurgitation is mild. TRICUSPID VALVE The tricuspid valve is normal in structure. There is no tricuspid valve regurgitation noted. PULMONIC VALVE The pulmonary valve is normal in structure. GREAT VESSELS The aortic root is normal in size. The IVC is normal in size and collapses >50% with inspiration. PERICARDIAL EFFUSION There is no pleural effusion. There is no pericardial effusion. <Conclusion> Normal chamber size. Moderately reduced LV systolic function with wall motion abnormalities as noted above. Mild MR.
--- NOTE | 2018-06-12 17:35 | PN ---
DATE: 06/12/2018 SUBJECTIVE: The patient denies chest pain. He is still short of breath. OBJECTIVE: VITAL SIGNS: Blood pressure 127/87, heart rate 81, temperature 97.5, respiration 20. HEENT: Head normocephalic. CHEST: Bilateral rhonchi. HEART: S1 and S2 regular. EXTREMITIES: Trace edema. LABORATORY DATA: Hemoglobin and hematocrit 15.8 and 41, white count 1.3, platelet count 195,000. Today's SMA-7 is within normal limits except for glucose 210 and creatinine of 0.6. Blood cultures negative after 24 hours. ASSESSMENT: 1. Coronary artery disease status post double bypass surgery with INGRAM to the LAD and saphenous vein graft to the marginal branch in December of last year. 2. Congestive heart failure. The patient had a LifeVest that he returned to the company for unclear reasons. 3. Chronic obstructive lung disease. RECOMMENDATIONS: Continue current Eliquis 5 mg twice a day, heparin 5000 units every 8 hours, Lopressor 25 mg twice a day, IV Maxipime 1 g every 12 hours, methadone 35 mg once a day, Slow-Mag 64 mg once a day, Solu-Medrol 40 mg intravenously every 8 hours. I will follow the echocardiograph study once it is performed. Emory Plata MD
[2018-06-13] MEDS: Albuterol-Ipratrop 3 mg / 0.5 (3 ml) UD IH SCH ×4 (01:20→19:39)
[2018-06-13] MEDS: MethylPREDNISolone 40 mg Vial IVP SCH ×3 (05:41→23:30)
[2018-06-13] MEDS: Pantoprazole 40 mg EC Tab PO SCH (05:41)
[2018-06-13 06:33] LABS: HEMOGLOBIN 12.1 g/dL (14.0-18.0); LYMPH # 0.6 (1.2-3.4); LYMPH % 8.2 % (22.0-35.0); MEAN CELL VOLUME 81.8 fl (80.0-105.0); MEAN CORPUSCULAR HEMOGLOBIN 27.1 pg (25.0-35.0); MEAN CORPUSCULAR HGB CONC 33.2 g/dl (31.0-37.0); MEAN PLATELET VOLUME 9.5 fl (7.0-11.0); MONO # 0.2 (0.1-0.6); MONO % 3.3 % (1.0-6.0); RBC 4.46 10^6/uL (3.5-6.1); RED CELL DISTRIBUTION WIDTH 13.8 % (11.5-14.5)
[2018-06-13 07:20] LABS: ALBUMIN 3.5 g/dL (3.0-4.8); ALT/SGPT 40 U/L (7-56); AST/SGOT 56 U/L (17-59); BLOOD UREA NITROGEN 17 mg/dL (7-21); CALCIUM 8.9 mg/dL (8.4-10.5); GFR NON-AFRICAN AMERICAN > 60
[2018-06-13] MEDS: Insulin Lispro (humaLOG) LOW Coverage SC SCH ×4 (08:09→23:25)
[2018-06-13 08:20] VITALS: RESP 20
[2018-06-13] MEDS: POLYETHYLENE GLYCOL 3350 17 GM/Dose PACKET PO PRN (09:12)
[2018-06-13] MEDS: Multivitamin Therapeutic Tab PO SCH (09:13)
[2018-06-13] MEDS: Magnesium Chloride 64 mg ER Tab PO SCH (09:13)
[2018-06-13] MEDS: Cefepime 1gm in NS 100ml 1 GM/100 ML BAG IVPB SCH ×2 (09:27→21:48)
--- NOTE | 2018-06-13 10:50 | CP.PCM.PN ---
<Thiago Chapman - Last Filed: 06/13/18 13:51> Subjective - Date & Time of Evaluation Date of Evaluation: 06/13/18 Time of Evaluation: 10:50 - Subjective Subjective: Thiago Chapman DO, PGY-1 Hospitalist Progress Note for Dr. Rola Dunbar Patient was seen and examined at bedside this AM. He reports he feels persistent SOB this AM, especially after lying flat. He states he uses home oxygen and this has helped in the past but it has been getting worse. Objective - Vital Signs/Intake and Output Vital Signs (last 24 hours): Temp Pulse Resp BP Pulse Ox 97.6 F 85 20 136/88 95 06/13/18 08:20 06/13/18 09:11 06/13/18 08:20 06/13/18 09:11 06/13/18 08:20 Intake and Output: 06/13/18 06/13/18 06:59 18:59 Intake Total 1020 Output Total 3200 Balance -2180 - Medications Medications: Current Medications Acetaminophen (Tylenol 325mg Tab) 650 mg PO Q6H PRN PRN Reason: Fever >100.4 F Last Admin: 06/12/18 18:14 Dose: 650 mg Albuterol/Ipratropium (Duoneb 3 Mg/0.5 Mg (3 Ml) Ud) 3 ml IH Q2H PRN PRN Reason: Shortness of Breath Albuterol/Ipratropium (Duoneb 3 Mg/0.5 Mg (3 Ml) Ud) 3 ml IH [id number] [facility] Last Admin: 06/13/18 08:27 Dose: 3 ml Apixaban (Eliquis) 5 mg PO BID [facility]; Protocol Last Admin: 06/13/18 09:11 Dose: 5 mg Dextrose (Dextrose 50% Inj) 0 ml IV STAT PRN; Protocol PRN Reason: Hypoglycemia Protocol Folic Acid (Folic Acid) 1 mg PO DAILY [facility] Last Admin: 06/13/18 09:11 Dose: 1 mg Dextrose (Dextrose 5% In Water 1000 Ml) 1,000 mls @ 0 mls/hr IV .Q0M PRN; Protocol PRN Reason: Hypoglycemia Protocol Cefepime HCl (Maxipime 1gm) 1 gm in 100 mls @ 100 mls/hr IVPB Q12 [facility]; Protocol Last Admin: 06/13/18 09:27 Dose: 100 mls/hr Insulin Human Lispro (Humalog Low) 0 units SC ACHS [facility]; Protocol Last Admin: 06/13/18 08:09 Dose: 2 units Magnesium Chloride (Slow-Mag) 64 mg PO DAILY [facility] Last Admin: 06/13/18 09:13 Dose: 64 mg Methadone HCl (Methadone) 35 mg PO DAILY [facility] Last Admin: 06/13/18 09:12 Dose: 35 mg Methylprednisolone (Solu-Medrol) 30 mg IVP Q8 [facility] Metoprolol Tartrate (Lopressor) 25 mg PO BID [facility] Last Admin: 06/13/18 09:11 Dose: 25 mg Multivitamins (Thera Tab) 1 tab PO DAILY [facility] Last Admin: 06/13/18 09:13 Dose: 1 tab Pantoprazole Sodium (Protonix Ec Tab) 40 mg PO 0600 [facility] Last Admin: 06/13/18 05:41 Dose: 40 mg Polyethylene Glycol (Miralax) 17 gm PO DAILY PRN PRN Reason: Constipation Last Admin: 06/13/18 09:12 Dose: 17 gm - Labs Labs: 06/13/18 06:15 06/13/18 06:15 PT 16.0 SECONDS (9.4-12.5) H 06/11/18 00:41 INR 1.44 06/11/18 00:41 APTT 39.7 Seconds (26.9-38.3) H 06/11/18 00:41 Assessment and Plan - Assessment and Plan (Free Text) Assessment: 58 yo M with PMH of systolic CHF (2/2 ischemic CM last EF 17%), CAD (s/p CABG 12/2017), HTN, DM2, Hep C, and polysubstance abuse is admitted for worsening SOB, cough, and LE swelling. Patient is also febrile on admission and was seen in ED yesterday for fever/chills. Plan: Dyspnea May be 2/2 HCAP vs CHF exacerbation vs COPD exacerbation Patient admits to persistent SOB, especially when lying flat and has persistent b/l rhonchi on exam this AM Continue HCAP treatment per ID recs Continue duo-neb scheduled and PRN Wean solumedrol to 30 mg IVP q12h ID following, all recs appreciated LE Swelling Most likely 2/2 acute on chronic systolic CHF exacerbation Repeat TTE showed improved EF of 40% Per cardiology, continue lopressor and other current medicines Monitor electrolytes closely Cardiology following, all recs appreciated Hx AFib Per prior records, patient also has hx of paroxysmal AFib Continue home eliquis Further recs per cardiology DM2 A1c this admission 7.1 Informed patient that he has diabetes, patient is aware but has not followed up regularly Continue ISS, hypoglycemic protocol Will start metformin on discharge with close outpatient f/u Hypomagnesemia Resolved this AM Continue to monitor Hyperkalemia Mildly elevated, recheck BMP this afternoon Transaminitis Suspect most likely 2/2 prior alcoholic hepatitis Trending down Continue to monitor Hx HTN Continue lopressor Will also add PRN hydralazine as patient remained hypertensive overnight Continue to monitor Hx polysubstance abuse Continue patient education for abstinence Social work consult DVT/GI PPX: Home eliquis/protonix Full Code HHD Monitor on remote tele Patient seen, examined, and plan discussed with my attending Dr. Rola Chapman D.O. IM Resident PGY-1 Pager: [phone] <Klaudia Dunbar R - Last Filed: 06/14/18 11:45> Objective - Vital Signs/Intake and Output Vital Signs (last 24 hours): Temp Pulse Resp BP Pulse Ox 97.9 F 80 20 153/98 H 99 06/14/18 06:00 06/14/18 06:00 06/14/18 06:00 06/14/18 06:00 06/14/18 06:00 Intake and Output: 06/14/18 06/14/18 06:59 18:59 Intake Total 1980 Output Total 3150 Balance -1170 - Medications Medications: Current Medications Acetaminophen (Tylenol 325mg Tab) 650 mg PO Q6H PRN PRN Reason: Fever >100.4 F Last Admin: 06/12/18 18:14 Dose: 650 mg Albuterol/Ipratropium (Duoneb 3 Mg/0.5 Mg (3 Ml) Ud) 3 ml IH Q2H PRN PRN Reason: Shortness of Breath Albuterol/Ipratropium (Duoneb 3 Mg/0.5 Mg (3 Ml) Ud) 3 ml IH [id number] [facility] Last Admin: 06/14/18 08:03 Dose: 3 ml Apixaban (Eliquis) 5 mg PO BID [facility]; Protocol Last Admin: 06/14/18 09:51 Dose: 5 mg Arformoterol Tartrate (Brovana) 15 mcg IH [id number] [facility] Last Admin: 06/14/18 08:03 Dose: 15 mcg Aspirin (Ecotrin) 81 mg PO DAILY [facility] Last Admin: 06/14/18 09:51 Dose: 81 mg Budesonide (Pulmicort Respules) 0.5 mg IH [id number] [facility] Last Admin: 06/14/18 08:03 Dose: 0.5 mg Dextrose (Dextrose 50% Inj) 0 ml IV STAT PRN; Protocol PRN Reason: Hypoglycemia Protocol Folic Acid (Folic Acid) 1 mg PO DAILY [facility] Last Admin: 06/14/18 09:51 Dose: 1 mg Dextrose (Dextrose 5% In Water 1000 Ml) 1,000 mls @ 0 mls/hr IV .Q0M PRN; Protocol PRN Reason: Hypoglycemia Protocol Cefepime HCl (Maxipime 1gm) 1 gm in 100 mls @ 100 mls/hr IVPB Q12 [facility]; Protocol Last Admin: 06/14/18 09:52 Dose: 100 mls/hr Insulin Human Lispro (Humalog Low) 0 units SC ACHS [facility]; Protocol Last Admin: 06/14/18 09:51 Dose: 4 units Magnesium Chloride (Slow-Mag) 64 mg PO DAILY [facility] Last Admin: 06/14/18 09:53 Dose: 64 mg Methadone HCl (Methadone) 35 mg PO DAILY [facility] Last Admin: 06/14/18 09:53 Dose: 35 mg Methylprednisolone (Solu-Medrol) 30 mg IVP Q8 [facility] Last Admin: 06/14/18 06:02 Dose: 30 mg Metoprolol Tartrate (Lopressor) 25 mg PO BID [facility] Last Admin: 06/14/18 09:52 Dose: 25 mg Multivitamins (Thera Tab) 1 tab PO DAILY [facility] Last Admin: 06/14/18 09:53 Dose: 1 tab Pantoprazole Sodium (Protonix Ec Tab) 40 mg PO 0600 [facility] Last Admin: 06/14/18 06:02 Dose: 40 mg Polyethylene Glycol (Miralax) 17 gm PO DAILY PRN PRN Reason: Constipation Last Admin: 06/13/18 09:12 Dose: 17 gm - Labs Labs: 06/14/18 06:20 06/14/18 06:20 PT 16.0 SECONDS (9.4-12.5) H 06/11/18 00:41 INR 1.44 06/11/18 00:41 APTT 39.7 Seconds (26.9-38.3) H 06/11/18 00:41 Attending/Attestation - Attestation I have personally seen and examined this patient.: Yes I have fully participated in the care of the patient.: Yes I have reviewed all pertinent clinical information, including history, physical exam and plan: Yes Notes (Text): Patient seen and examined by me with resident at 11:20 AM on 06/13/18. Case including HPI, physical exam, and assessment and plan discussed with resident. Agree with above with following additions/corrections. Patient is a 58-year-old, past medical history significant for asthma, COPD, essential hypertension, coronary artery disease status post CABG, polysubstance abuse, atrial fibrillation on Eliquis, ischemic cardiomyopathy, and hepatitis C who presented to the emergency room with shortness of breath and cough. Patient states he is feeling a little better. Still feels shortness of breath. Still with some mouth pain. Patient does use oxygen at home, 2L. Patient denies any nausea, vomiting, or abdominal pain. No headaches or dizziness. No lightheadedness. No chest pain or palpitations. No diarrhea or constipation. No dysuria. Physical exam: General: Awake and alert lying in bed in no acute distress. HEENT: Normocephalic, atraumatic. Extraocular muscles intact, pupils equal and reactive, no scleral icterus. Oropharynx is pink and moist. No pharyngeal eryth sujit or exudate appreciated. Neck is supple. Cardiovascular: Normal rhythm. Normal S1 and S2. No murmurs, rubs, or gallops appreciated Pulmonary: Normal respiratory effort. Decreased breath sounds. No rhonchi, rales, or wheezing appreciated. Gastrointestinal: Soft, nondistended. Nontender. Positive bowel sounds all 4 quadrants. No guarding. Musculoskeletal: Moves all extremities. No calf tenderness. No edema appreciated. Central nervous system: AAOx3, CN 2-12 grossly intact. Dermatologic: Skin warm and dry. Assessment and plan: Patient is a 58-year-old, past medical history significant for asthma, COPD, essential hypertension, coronary artery disease status post CABG, polysubstance abuse, atrial fibrillation on Eliquis, ischemic cardiomyopathy, and hepatitis C who presented to the emergency room with shortness of breath and cough. 1. Fevers of unknown origin. Chest x-ray on 06/11/2018 per adiologist showed no active disease. Repeat chest xray per radiologist showed hyperinflation of the lungs. CT abdomen and pelvis per radiologist showed no definitive acute abdominal or pelvic findings; no ascites or free intraperitoneal gas collection; prior cholecystectomy; prominent fecal loading throughout the colon sparing rectosigmoid; enlarged prostate gland; bibasal pulmonary emphysema. Continue Maxipime. ID following, recommendations appreciated. Patient afebrile. Leukopenia resolved. Influenza negative. 2. COPD exacerbation with history of chronic respiratory failure on home oxygen. Continue Solu-Medrol. Continue nebulizer treatments. Continue O2 via nasal cannula. 3. Chronic systolic CHF. Ischemic cardiomyopathy. Cardiology following, recommendations appreciated. 2-D echo per arcade games mechanic showed LVEF of 39.8%, normal chamber size, moderately reduced LV systolic function with wall motion abnormalities, mild mitral regurgitation, systolic function is moderately impaired; there is severe hypokinesis of the apical, anterior, and anterior septal wall segments. Patient not in acute exacerbation. Continue Lopressor. 4. CAD s/p CABG. Continue Lopressor. Patient on eliquis. Per Patient, no longer takes Plavix. Per arcade games mechanic, patient to take ASA 81mg daily. Troponins within normal limits. 2D echo as above. 5. Paroxysmal atrial fibrillation. Continue home Eliquis. Continue Lopressor. 6. Hypomagnesemia. Resolved with replacement. Continue to monitor. 7. Type 2 diabetes. Hemoglobin A1c 7.1. Continue insulin sliding scale. Continue to monitor Accu-Cheks. Patient does take insulin at home. 8. Essential hypertension. Continue Lopressor. 9. History of polysubstance abuse now on methadone. Methodone dose confirmed with patient's Methadone clinic [facility]. Continue home methadone. 10. Constipation. MiraLAX as needed. Patient was given kayexelate. 11. Hepatitis C. Patient will need outpatient follow up, discussed with patient. Patient is aware and is planning follow up. 12. GI/DVT prophylaxis. Eliquis/Protonix. 13. Patient is a full code. Case discussed in detail with patient regarding current diagnosis and treatment plan. All questions answered.
--- NOTE | 2018-06-13 12:45 | RAD ---
Date of service: 06/13/2018 HISTORY: sob COMPARISON: Comparison is made with 06/11/2018 FINDINGS: LUNGS: No evidence of new infiltrate or consolidation in the lungs. Hyperinflation of the lungs is again noted. PLEURA: No significant pleural effusion identified, no pneumothorax apparent. CARDIOVASCULAR: No aortic atherosclerotic calcification present. Normal cardiac size. No pulmonary vascular congestion. OSSEOUS STRUCTURES: No significant abnormalities. VISUALIZED UPPER ABDOMEN: Normal. OTHER FINDINGS: None. IMPRESSION: No active disease.
--- NOTE | 2018-06-13 16:04 | CARD ---
APPROVED REPORT Date of service: 06/13/2018 EKG Measurement Heart [id number] <Conclusion> Normal sinus rhythm Left ventricular hypertrophy with repolarization abnormality Possible Inferior infarct, age undetermined Abnormal ECG
--- NOTE | 2018-06-13 19:07 | PN ---
DATE: 06/13/2018 SUBJECTIVE: Patient is still experiencing shortness of breath. Patient was on nasal home O2 in the past. PHYSICAL EXAMINATION: VITAL SIGNS: Blood pressure 136/88, heart rate 85, temperature 97.6, and respirations 20. HEENT: Head normocephalic. CHEST: Bilateral rhonchi. HEART: S1 and S2 regular. EXTREMITIES: No edema. LABORATORY DATA: Hemoglobin and hematocrit 12.1 and 36.5, white count and platelet count are within normal limit. Today's SMA-7 is within normal limits except for potassium of 5.1, chloride of 97, BUN of 26, glucose of 143, BUN of 17, and creatinine of 0.6. Today's chest x-ray, no active disease. Echocardiographic study moderately reduced left ventricular systolic function with segmental wall motion abnormality and mild mitral insufficiency. Ejection fraction estimated at 30-40%. ASSESSMENT: 1. Coronary artery disease status post double bypass surgery with left internal mammary artery to left anterior descending artery and saphenous vein graft to the marginal branch. 2. Ischemic cardiomyopathy. 3. Chronic obstructive lung disease. 4. Paroxysmal atrial fibrillation diagnosed postoperatively after initial cardiac surgery. RECOMMENDATIONS: Continue the patient on . Continue Eliquis 5 mg twice a day, Lopressor 25 mg twice a day, IV Maxipime 1 g every 12 hours, Solu-Medrol 40 mg every 8 hours, Slow-Mag 64 mg daily. Patient will ambulate on while checking the pulse oximetry to verify if the patient is in need for nasal home O2. Emory Plata MD
--- NOTE | 2018-06-13 20:04 | CP.PCM.PN ---
Subjective - Date & Time of Evaluation Date of Evaluation: 06/13/18 Time of Evaluation: 18:00 - Subjective Subjective: Infectious Disease Follow Up: June 13, 2018 58 year old male with PMHx of asthma, COPD, HTN, CAD s/p CABG, hepatitis C presenting with chief complaint of shortness of breath and cough which began 3 days ago. Cough is productive with brownish sputum. Patient states he used Ventolin with no relief. Patient had CABG of 2 vessels performed December 2017. Patient also admits to bilateral leg pain and swelling around his ankles. He recently followed up with his PMD Dr. Mason and states there were no issues at that time. Denies fevers, chills, nausea, vomiting, chest pain, abdominal pain, diarrhea, dysuria. Patient with PCN allergy. The patient has frequent visits to both [facility] and [facility]. I last saw patient at [facility] in March 2018. Patient states breathing is better today. Leukopenia resolved. Viral etiology? Patient still with SOB on ambulation. Objective - Vital Signs/Intake and Output Vital Signs (last 24 hours): Temp Pulse Resp BP Pulse Ox 97.6 F 89 20 119/79 95 06/13/18 08:20 06/13/18 18:00 06/13/18 08:20 06/13/18 17:09 06/13/18 08:20 - Medications Medications: Current Medications Acetaminophen (Tylenol 325mg Tab) 650 mg PO Q6H PRN PRN Reason: Fever >100.4 F Last Admin: 06/12/18 18:14 Dose: 650 mg Albuterol/Ipratropium (Duoneb 3 Mg/0.5 Mg (3 Ml) Ud) 3 ml IH Q2H PRN PRN Reason: Shortness of Breath Albuterol/Ipratropium (Duoneb 3 Mg/0.5 Mg (3 Ml) Ud) 3 ml IH [id number] [facility] Last Admin: 06/13/18 19:39 Dose: 3 ml Apixaban (Eliquis) 5 mg PO BID [facility]; Protocol Last Admin: 06/13/18 17:08 Dose: 5 mg Dextrose (Dextrose 50% Inj) 0 ml IV STAT PRN; Protocol PRN Reason: Hypoglycemia Protocol Folic Acid (Folic Acid) 1 mg PO DAILY [facility] Last Admin: 06/13/18 09:11 Dose: 1 mg Dextrose (Dextrose 5% In Water 1000 Ml) 1,000 mls @ 0 mls/hr IV .Q0M PRN; Protocol PRN Reason: Hypoglycemia Protocol Cefepime HCl (Maxipime 1gm) 1 gm in 100 mls @ 100 mls/hr IVPB Q12 [facility]; Protocol Last Admin: 06/13/18 09:27 Dose: 100 mls/hr Insulin Human Lispro (Humalog Low) 0 units SC ACHS [facility]; Protocol Last Admin: 06/13/18 16:48 Dose: Not Given Magnesium Chloride (Slow-Mag) 64 mg PO DAILY [facility] Last Admin: 06/13/18 09:13 Dose: 64 mg Methadone HCl (Methadone) 35 mg PO DAILY [facility] Last Admin: 06/13/18 09:12 Dose: 35 mg Methylprednisolone (Solu-Medrol) 30 mg IVP Q8 [facility] Last Admin: 06/13/18 15:08 Dose: 30 mg Metoprolol Tartrate (Lopressor) 25 mg PO BID [facility] Last Admin: 06/13/18 17:09 Dose: 25 mg Multivitamins (Thera Tab) 1 tab PO DAILY [facility] Last Admin: 06/13/18 09:13 Dose: 1 tab Pantoprazole Sodium (Protonix Ec Tab) 40 mg PO 0600 [facility] Last Admin: 06/13/18 05:41 Dose: 40 mg Polyethylene Glycol (Miralax) 17 gm PO DAILY PRN PRN Reason: Constipation Last Admin: 06/13/18 09:12 Dose: 17 gm - Labs Labs: 06/13/18 06:15 06/13/18 06:15 PT 16.0 SECONDS (9.4-12.5) H 06/11/18 00:41 INR 1.44 06/11/18 00:41 APTT 39.7 Seconds (26.9-38.3) H 06/11/18 00:41 - Constitutional Appears: Agitated - Head Exam Head Exam: ATRAUMATIC, NORMOCEPHALIC - Eye Exam Eye Exam: EOMI, PERRL Pupil Exam: NORMAL ACCOMODATION, PERRL - ENT Exam ENT Exam: Mucous Membranes Moist, Normal External Ear Exam, TM's Normal Bilaterally Additional comments: tongue ulcer - appears to be aphthous ulceration - Neck Exam Neck Exam: Full ROM, Normal Inspection - Respiratory Exam Respiratory Exam: Clear to Ausculation Bilateral, NORMAL BREATHING PATTERN. absent: Rales, Rhonchi, Wheezes - Cardiovascular Exam Cardiovascular Exam: REGULAR RHYTHM, RRR, +S1, +S2 - GI/Abdominal Exam GI & Abdominal Exam: Soft, Normal Bowel Sounds. absent: Distended, Tenderness - Extremities Exam Extremities Exam: Full ROM Additional comments: bilateral lower extremities with venous stasis changes bilateral ankles tender to palpation - Neurological Exam Neurological Exam: Alert, Awake, CN II-XII Intact, Oriented x3 - Psychiatric Exam Psychiatric exam: Normal Affect, Normal Mood - Skin Skin Exam: Intact, Normal Color Assessment and Plan - Assessment and Plan (Free Text) Assessment: 58 yo male with multiple medical issues who claims to be compliant with his meds but is not. The patient has frequent visits to [facility] and [facility]. SOB is a frequent complaint for this patient. The patient is supposed to be on a Life Vest but he refuses to wear it. Last HIV test was 05/26/2018 which was negative. CABG was done in 12/2017. He has been given antibiotics in the past but he has rarely filled them. The patient has tolerated Cephalosporins in the past. Continue on Cefepime as he has tolerated doses in [facility]. Appears better than yesterday. The patient most likely had a viral etiology. Cultures have been negative. Thank you for allowing me to participate in the care of the patient, we will follow with you.
[2018-06-14] MEDS: Albuterol-Ipratrop 3 mg / 0.5 (3 ml) UD IH SCH ×3 (01:36→13:26)
[2018-06-14] MEDS: Pantoprazole 40 mg EC Tab PO SCH (06:02)
[2018-06-14] MEDS: MethylPREDNISolone 40 mg Vial IVP SCH ×2 (06:02→16:00)
[2018-06-14 07:01] LABS: HEMOGLOBIN 11.9 g/dL (14.0-18.0); LYMPH # 0.6 (1.2-3.4); LYMPH % 4.2 % (22.0-35.0); MEAN CELL VOLUME 82.8 fl (80.0-105.0); MEAN CORPUSCULAR HEMOGLOBIN 27.3 pg (25.0-35.0); MEAN PLATELET VOLUME 10.1 fl (7.0-11.0); MONO # 0.4 (0.1-0.6); MONO % 3.1 % (1.0-6.0); PLATELET COUNT 195 10^3/uL (120.0-450.0); RBC 4.36 10^6/uL (3.5-6.1); RED CELL DISTRIBUTION WIDTH 14.1 % (11.5-14.5); WHITE BLOOD COUNT 13.2 10^3/uL (4.5-11.0)
[2018-06-14 07:47] LABS: ALBUMIN 3.5 g/dL (3.0-4.8); ALT/SGPT 39 U/L (7-56); AST/SGOT 61 U/L (17-59); BLOOD UREA NITROGEN 19 mg/dL (7-21); CALCIUM 8.7 mg/dL (8.4-10.5); GFR NON-AFRICAN AMERICAN > 60
[2018-06-14] MEDS ORDERED: Arformoterol 15 mcg/2 ml Inh Sol IH SCH (08:00)
[2018-06-14] MEDS ORDERED: Budesonide 0.5 mg/2 ml Inhal Susp UD IH SCH (08:00)
[2018-06-14 08:01] LABS: HYPOCHROMIA SLIGHT; LYMPHOCYTE 6 % (22.0-35.0); MONOCYTE 4 % (1.0-6.0); NEUTROPHIL 90 % (50.0-70.0); PLATELET ESTIMATE NORMAL (NORMAL)
[2018-06-14 08:02] LABS: ANISOCYTOSIS SLIGHT; MICROCYTOSIS SLIGHT
[2018-06-14 09:15] VITALS: BP 153/98; TEMP 97.9; O2SAT 99
[2018-06-14] MEDS: Insulin Lispro (humaLOG) LOW Coverage SC SCH ×2 (09:51→13:50)
[2018-06-14] MEDS: Cefepime 1gm in NS 100ml 1 GM/100 ML BAG IVPB SCH (09:52)
[2018-06-14] MEDS: Multivitamin Therapeutic Tab PO SCH (09:53)
[2018-06-14] MEDS: Magnesium Chloride 64 mg ER Tab PO SCH (09:53)
[2018-06-14] MEDS ORDERED: POLYETHYLENE GLYCOL 3350 17 GM/Dose PACKET PO SCH (12:15)
[2018-06-14 13:57] VITALS: PULSE 119
[2018-06-14] MEDS ORDERED: Digoxin 250 mcg (0.25 mg) Tab PO SCH (14:00)
--- NOTE | 2018-06-14 14:40 | PN ---
DATE: 06/14/2018 SUBJECTIVE: The patient is still short of breath, on exertion who was noted have runs of rapid atrial fibrillation, possibly atrial flutter with variable conduction. He had a short run of nonsustained ventricular tachycardia of about 5 beats. PHYSICAL EXAMINATION VITAL SIGNS: Blood pressure 153/98, heart rate 80, temperature 97.9, and respirations 20. HEENT: Normocephalic. CHEST: Clear. HEART: S1 and S2 regular. EXTREMITIES: No edema. LABORATORY DATA: His hemoglobin and hematocrit 11.9 and 36.1, white count 16.2 and platelet count 195,000. Today's blood sugar 323. Yesterday's, EKG revealed normal sinus rhythm at rate of 100, possible inferior infarct, age indeterminate . ASSESSMENT: 1. Coronary artery disease, status post double bypass surgery. 2. Paroxysmal atrial fibrillation. 3. Chronic obstructive lung disease. 4. Mildly depressed ejection fraction. RECOMMENDATIONS: Case was discussed with primary physician Dr. Dunbar. Continue aspirin 81 mg once a day, Eliquis 5 mg twice a day, Lopressor 25 mg twice a day, Maxipime 1 g every 12 hours, Solu-Medrol at 20 mg intravenously every 8 hours, Slow-Mag at one tablet daily, start Cozaar at 25 mg daily and digoxin 0.125 mg orally daily. Emory Plata MD
--- NOTE | 2018-06-14 16:48 | CP.PCM.DIS ---
Provider - Provider Date of Admission: 06/12/18 12:21 Attending physician: Klaudia Dunbar DO Primary care physician: Nafisa Mason MD Consults: 06/11/18 11:01 Infectious Disease Consult Routine Comment: Consulting Provider: Andres Stanton Consulting Physician: Andres Stanton Reason for Consult: fever, r/o sepsis 06/11/18 11:04 Cardiology Consult Routine Comment: Consulting Provider: Emory Plata Consulting Physician: Emory Plata Reason for Consult: chf exacerbation 06/11/18 16:16 Nursing Referral for Palliative Care Routine Comment: cindy score Physician Instructions: Reason For Exam: assess Social Work Referral Routine Comment: d/c plan Physician Instructions: Reason For Exam: asess 06/11/18 16:58 Case Management Referral Routine Comment: Physician Instructions: Reason For Exam: Reason for Referral: Discharge Planning Inpatient INTENSIVE CARE MEDICINE SPECIALIST Core Measures Referral Routine Comment: copd Physician Instructions: Reason For Exam: assess Transition In Care/Readmission Reduction Routine Comment: copd Physician Instructions: Reason For Exam: assess Time Spent in preparation of Discharge (in minutes): 35 Hospital Course - Lab Results Lab Results: Micro Results 06/11/18 01:00 Blood-Venous Blood Culture - Preliminary NO GROWTH AFTER 3 DAYS 06/11/18 00:41 Blood-Venous Blood Culture - Preliminary NO GROWTH AFTER 3 DAYS Most Recent Lab Values WBC 13.2 10^3/uL (4.5-11.0) H D 06/14/18 06:20 RBC 4.36 10^6/uL (3.5-6.1) 06/14/18 06:20 Hgb 11.9 g/dL (14.0-18.0) L 06/14/18 06:20 Hct 36.1 % (42.0-52.0) L 06/14/18 06:20 MCV 82.8 fl (80.0-105.0) 06/14/18 06:20 MCH 27.3 pg (25.0-35.0) 06/14/18 06:20 MCHC 33.0 g/dl (31.0-37.0) 06/14/18 06:20 RDW 14.1 % (11.5-14.5) 06/14/18 06:20 Plt Count 195 10^3/uL (120.0-450.0) 06/14/18 06:20 MPV 10.1 fl (7.0-11.0) 06/14/18 06:20 Neut % (Auto) 92.7 % (50.0-68.0) H 06/14/18 06:20 Lymph % (Auto) 4.2 % (22.0-35.0) L 06/14/18 06:20 [place] % (Auto) 3.1 % (1.0-6.0) 06/14/18 06:20 Eos % (Auto) 0.0 % (1.5-5.0) L 06/14/18 06:20 Baso % (Auto) 0.0 % (0.0-3.0) 06/14/18 06:20 Lymph # (Auto) 0.6 (1.2-3.4) L 06/14/18 06:20 [place] # (Auto) 0.4 (0.1-0.6) 06/14/18 06:20 Eos # (Auto) 0.0 (0.0-0.7) 06/14/18 06:20 Baso # (Auto) 0.00 K/mm3 (0.0-2.0) 06/14/18 06:20 Absolute Neuts (auto) 12.26 (1.4-6.5) H 06/14/18 06:20 Neutrophils % (Manual) 90 % (50.0-70.0) H 06/14/18 06:20 Band Neutrophils % 1 % (0-2) 06/11/18 00:41 Lymphocytes % (Manual) 6 % (22.0-35.0) L 06/14/18 06:20 Monocytes % (Manual) 4 % (1.0-6.0) 06/14/18 06:20 Eosinophils % (Manual) 4 % (0.0-3.0) H 06/11/18 00:41 Platelet Evaluation Normal (NORMAL) 06/14/18 06:20 Hypochromasia Slight 06/14/18 06:20 Anisocytosis (manual) Slight 06/14/18 06:20 Microcytosis (manual) Slight 06/14/18 06:20 PT 16.0 SECONDS (9.4-12.5) H 06/11/18 00:41 INR 1.44 06/11/18 00:41 APTT 39.7 Seconds (26.9-38.3) H 06/11/18 00:41 Sodium 132 mmol/L (132-148) 06/14/18 06:20 Potassium 4.4 mmol/L (3.6-5.0) 06/14/18 06:20 Chloride 98 mmol/L (98-107) 06/14/18 06:20 Carbon Dioxide 25 mmol/L (21-33) 06/14/18 06:20 Anion Gap 14 (10-20) 06/14/18 06:20 BUN 19 mg/dL (7-21) 06/14/18 06:20 Creatinine 0.6 mg/dl (0.8-1.5) L 06/14/18 06:20 Est GFR ( Amer) > 60 06/14/18 06:20 Est GFR (Non-Af Amer) > 60 06/14/18 06:20 POC Glucose (mg/dL) 193 mg/dL (65-110) H 06/14/18 16:24 Random Glucose 323 mg/dL (70-110) H* D 06/14/18 06:20 Hemoglobin A1c 7.1 % (4.2-6.5) H D 06/11/18 00:41 Calcium 8.7 mg/dL (8.4-10.5) 06/14/18 06:20 Phosphorus 3.3 mg/dL (2.5-4.5) 06/14/18 06:20 Magnesium 2.0 mg/dL (1.7-2.2) 06/14/18 06:20 Total Bilirubin 0.6 mg/dL (0.2-1.3) 06/14/18 06:20 AST 61 U/L (17-59) H 06/14/18 06:20 ALT 39 U/L (7-56) 06/14/18 06:20 Alkaline Phosphatase 98 U/L (38-126) 06/14/18 06:20 Lactate Dehydrogenase 579 U/L (333-699) 06/11/18 00:41 Total Creatine Kinase 155 U/L (35-230) 06/11/18 00:41 Troponin I < 0.01 ng/mL 06/13/18 15:59 NT-Pro-B Natriuret Pep 207 pg/mL (0-450) 06/11/18 00:41 Total Protein 7.1 g/dL (5.8-8.3) 06/14/18 06:20 Albumin 3.5 g/dL (3.0-4.8) 06/14/18 06:20 Globulin 3.6 gm/dL 06/14/18 06:20 Albumin/Globulin Ratio 1.0 (1.1-1.8) L 06/14/18 06:20 25-OH Vitamin D Total 43.7 NG/ML (30.0-100.0) 06/11/18 00:41 Procalcitonin 0.07 NG/ML (0.19-0.49) L 06/13/18 08:00 TSH 3rd Generation 2.65 mIU/mL (0.46-4.68) 06/11/18 00:41 Urine Color Yellow (YELLOW) 06/12/18 16:36 Urine Appearance Clear (CLEAR) 06/12/18 16:36 Urine pH 6.0 (4.7-8.0) 06/12/18 16:36 Ur Specific [place] 1.025 (1.005-1.035) 06/12/18 16:36 Urine Protein Negative mg/dL (<30 mg/dL) 06/12/18 16:36 Urine Glucose (UA) 100 mg/dL (NEGATIVE) H 06/12/18 16:36 Urine Ketones Negative mg/dL (NEGATIVE) 06/12/18 16:36 Urine Blood Negative (NEGATIVE) 06/12/18 16:36 Urine Nitrate Negative (NEGATIVE) 06/12/18 16:36 Urine Bilirubin Negative (NEGATIVE) 06/12/18 16:36 Urine Urobilinogen 1.0 E.U./dL (<1 E.U./dL) H 06/12/18 16:36 Ur Leukocyte Esterase Negative Eloy/uL (NEGATIVE) 06/12/18 16:36 Urine Opiates Screen Negative (NEGATIVE) 06/11/18 06:40 Urine Methadone Screen Positive (NEGATIVE) H 06/11/18 06:40 Ur Barbiturates Screen Negative (NEGATIVE) 06/11/18 06:40 Ur Phencyclidine Scrn Negative (NEGATIVE) 06/11/18 06:40 Ur Amphetamines Screen Negative (NEGATIVE) 06/11/18 06:40 U Benzodiazepines Scrn Negative (NEGATIVE) 06/11/18 06:40 U Oth Cocaine Metabols Negative (NEGATIVE) 06/11/18 06:40 U Cannabinoids Screen Negative (NEGATIVE) 06/11/18 06:40 Alcohol, Quantitative < 10 mg/dL (0-10) 06/11/18 00:41 Hepatitis A IgM Ab Negative (NEGATIVE) 06/11/18 00:41 Hep Bs Antigen Negative (NEGATIVE) 06/11/18 00:41 Hep B Core IgM Ab Negative (NEGATIVE) 06/11/18 00:41 Hepatitis C Antibody Reactive (NEGATIVE) 06/11/18 00:41 HIV 1&2 Ag/Ab, 4th Gen Nonreactive (Nonreactive) 06/11/18 05:00 Influenza Typ A,B (EIA) Negative for flu a/b (NEGATIVE) 06/11/18 02:02 - Hospital Course Hospital Course: Colin Pelaez, PGY1 Discharge Summary for Dr. Dunbar Patient is a 58 year old male with PMHx of asthma, COPD, HTN, CAD s/p CABG, hepatitis C who presented to the ED for shortness of breath and cough which began 3 days prior to admission. Cough was productive with brownish sputum. Patient had CABG done recently at [facility] 4 weeks prior. Medical team evaluated patient. He was afebrile and had no leukocytosis on labs. CXR showed no acute cardiopulmonary disease. Patient was started on nasal cannula, solumedrol, duonebs, and levaquin for management. Labs also showed transaminitis likely due to alcoholic hepatitis. Patient admitted for COPD exacerbation. Patient's respiratory status improved during hospital course. However, during overnight patient had fevers. CXR was negative and CT A/P showed no acute findings. ID was board for the fevers; antibiotics were switched to cefepime. Given cardiac history with recent CABG, cardiology was also consulted. Echo showed 39% EF. Recommendations from cardio was for aspirin, eliquis, lopressor, maxipime, solumedrol, slow-mag, cozaar, and digoxin. Patient was also started on his home medications during hospital course. Patient also has a history of polysubstance abuse and was started on methadone (methadone clinic is [facility]). During hospital course, patient's fevers resolved. He is now able to ambulate without having episodes of shortness of breath. ID was less suspicious of bacterial infection/origin and recommend that patient no longer needed antibiotics. After reviewing all vitals, labs, and imaging, patient is hemodynamically stable for discharge to home. In addition to his PMD, patient was explained to follow up with GI (hepatitic C Hx), Cardio, and Pulmonology as outpatient for management of his COPD and CHF-rEF. Discharge Exam - Head Exam Head Exam: ATRAUMATIC, NORMAL INSPECTION, NORMOCEPHALIC - Eye Exam Eye Exam: EOMI, Normal appearance - ENT Exam ENT Exam: Mucous Membranes Moist - Respiratory Exam Respiratory Exam: Clear to PA & Lateral. absent: Accessory Muscle Use, Chest Wall Tenderness, Rales, Rhonchi, Wheezes, Respiratory Distress - Cardiovascular Exam Cardiovascular Exam: RRR, +S1, +S2 - GI/Abdominal Exam GI & Abdominal Exam: Normal Bowel Sounds. absent: Distended, Guarding, Rigid - Extremities Exam Extremities exam: normal capillary refill, normal inspection, pedal pulses present - Back Exam Back exam: NORMAL INSPECTION - Neurological Exam Neurological exam: Alert, CN II-XII Intact, Normal Gait, Oriented x3, Reflexes Normal - Psychiatric Exam Psychiatric exam: Normal Affect, Normal Mood - Skin Skin Exam: Dry, Intact, Normal Color, Warm Discharge Plan - Discharge Medications Prescriptions: Calcium/Chloride/Magnesium [Mag64 110 MG-186.8 MG-64 MG] 64 mg PO DAILY #30 ect Digoxin [Lanoxin] 0.25 mg PO 1400 #14 tab Ipratropium 0.02% [Atrovent] 0.5 mg IH DAILY #1 inhaler Losartan [Cozaar] 25 mg PO DAILY #30 tab Metoprolol Tartrate [Lopressor] 25 mg PO BID #60 tab Umeclidinium [employer] [Incruse Ellipta] 62.5 mcg IH DAILY #1 blst.w.dev - Follow Up Plan Condition: FAIR Disposition: HOME/ ROUTINE Instructions: COPD Including Emphysema (DC) Additional Instructions: 1. Follow with with primary care doctor within 3-5 days. You will need repeat blood work and will need your digoxin level checked with your primary care doctor. 2. Follow up with fashion buyer, Dr. Plata, within 5-7 days of discharge 3. You will need to follow up with a broiler supervisor or infectious disease doctor for your Hepatitis C for further work up and treatment. 4. It is very important you follow with your primary medical doctor so that you may be referred to a route sales driver (lung doctor) for your chronic breathing problems (COPD on home oxygen). It it very important for you to follow up with a lung doctor. 5. Please resume your home medications as prescribed. The following scripts were sent to your pharmacy: - Calcium chloride/Magnesium 64 mg tablet daily - Digoxin 0.25mg tablet daily - Aspirin 81mg daily 6. You will also be given a Prednisone taper with 10mg tablets: - Take 4 tablets once a day for the first 3 days. - Take 3 tablets once a day for the next 3 days. - Take 2 tablets once a day for the next 3 days. - Take 1 tablet once a day for the last 3 days. -You may resume your home prednisone 10mg daily once you have completed the above taper 7. Please get any refills needed on your medications with your primary care doctor. 8. If new or worsening symptoms return to nearest Emergency department (shortness of breath) Referrals: Emory Plata MD [Staff Provider] - Nafisa Mason MD [Primary Care Provider] -
[2018-06-14 17:14] VITALS: PULSE 114
--- NOTE | 2018-06-14 19:24 | CP.PCM.PN ---
Subjective - Date & Time of Evaluation Date of Evaluation: 06/14/18 Time of Evaluation: 14:30 - Subjective Subjective: Infectious Disease Follow Up: June 14, 2018 58 year old male with PMHx of asthma, COPD, HTN, CAD s/p CABG, hepatitis C presenting with chief complaint of shortness of breath and cough which began 3 days ago. Cough is productive with brownish sputum. Patient states he used Ventolin with no relief. Patient had CABG of 2 vessels performed December 2017. Patient also admits to bilateral leg pain and swelling around his ankles. He recently followed up with his PMD Dr. Mason and states there were no issues at that time. Denies fevers, chills, nausea, vomiting, chest pain, abdominal pain, diarrhea, dysuria. Patient with PCN allergy. The patient has frequent visits to both [facility] and [facility]. I last saw patient at [facility] in March 2018. Patient states breathing is better today. Leukopenia resolved. Viral etiology? Patient less SOB on ambulation. Objective - Vital Signs/Intake and Output Vital Signs (last 24 hours): Temp Pulse Resp BP Pulse Ox 97.9 F 114 H 20 153/98 H 99 06/14/18 06:00 06/14/18 14:00 06/14/18 06:00 06/14/18 06:00 06/14/18 06:00 - Labs Labs: 06/14/18 06:20 06/14/18 06:20 PT 16.0 SECONDS (9.4-12.5) H 06/11/18 00:41 INR 1.44 06/11/18 00:41 APTT 39.7 Seconds (26.9-38.3) H 06/11/18 00:41 - Constitutional Appears: Non-toxic, No Acute Distress, Chronically Ill - Head Exam Head Exam: ATRAUMATIC, NORMOCEPHALIC - Eye Exam Eye Exam: EOMI, PERRL Pupil Exam: NORMAL ACCOMODATION, PERRL - ENT Exam ENT Exam: Mucous Membranes Moist, Normal External Ear Exam, TM's Normal Bilaterally - Neck Exam Neck Exam: Full ROM, Normal Inspection - Respiratory Exam Respiratory Exam: Clear to Ausculation Bilateral, NORMAL BREATHING PATTERN. absent: Rales, Rhonchi, Wheezes - Cardiovascular Exam Cardiovascular Exam: REGULAR RHYTHM, RRR, +S1, +S2 - GI/Abdominal Exam GI & Abdominal Exam: Soft, Normal Bowel Sounds. absent: Distended, Tenderness - Extremities Exam Extremities Exam: Full ROM Additional comments: bilateral lower extremities with venous stasis changes bilateral ankles tender to palpation - Neurological Exam Neurological Exam: Alert, Awake, CN II-XII Intact, Oriented x3 - Psychiatric Exam Psychiatric exam: Normal Affect, Normal Mood - Skin Skin Exam: Intact, Normal Color Assessment and Plan - Assessment and Plan (Free Text) Assessment: 58 yo male with multiple medical issues who claims to be compliant with his meds but is not. The patient has frequent visits to [facility] and [facility]. SOB is a frequent complaint for this patient. The patient is supposed to be on a Life Vest but he refuses to wear it. Last HIV test was 05/26/2018 which was negative. CABG was done in 12/2017. He has been given antibiotics in the past but he has rarely filled them. The patient has tolerated Cephalosporins in the past. Continue on Cefepime as he has tolerated doses in [facility]. Appears more comfortable than yesterday. The patient most likely had a viral etiology. Cultures have been negative. He does not need antibiotics on discharge. Thank you for allowing me to participate in the care of the patient, we will follow with you.
[2018-06-15] MEDS ORDERED: Non Formulary Medication (Umeclidinium Bromide [Incruse Ellipta] 62.5 MCG) IH SCH (10:00)
== END 2018-06-14 18:13 | disposition home or self-care (01) | DRG 541 ==
LOC: ED 00:21 → ERH 02:13 → 3RNO 17:58 → OBSVTOIN 06-12 12:21
PROVIDERS: ADMIT Internal Medicine; ATTEND Hospitalist
DX: J44.1 Chronic obstructive pulmonary disease with (acute) exacerbation (principal); J96.10 Chronic respiratory failure, unspecified whether with hypoxia or hypercapnia; I50.22 Chronic systolic (congestive) heart failure; I50.23 Acute on chronic systolic (congestive) heart failure; B19.20 Unspecified viral hepatitis C without hepatic coma; F11.10 Opioid abuse, uncomplicated; I11.0 Hypertensive heart disease with heart failure; I47.2 Ventricular tachycardia; E87.5 Hyperkalemia; Z99.81 Dependence on supplemental oxygen; D72.819 Decreased white blood cell count, unspecified; E11.9 Type 2 diabetes mellitus without complications; E83.42 Hypomagnesemia; I25.10 Atherosclerotic heart disease of native coronary artery without angina pectoris; I25.5 Ischemic cardiomyopathy; I48.0 Paroxysmal atrial fibrillation; K59.00 Constipation, unspecified; K70.10 Alcoholic hepatitis without ascites; N40.0 Benign prostatic hyperplasia without lower urinary tract symptoms; Z79.01 Long term (current) use of anticoagulants; Z82.49 Family history of ischemic heart disease and other diseases of the circulatory system; Z87.01 Personal history of pneumonia (recurrent); Z87.891 Personal history of nicotine dependence; Z88.0 Allergy status to penicillin; Z90.49 Acquired absence of other specified parts of digestive tract; Z95.1 Presence of aortocoronary bypass graft; Z95.5 Presence of coronary angioplasty implant and graft; F19.11 Other psychoactive substance abuse, in remission; I25.2 Old myocardial infarction; Z87.81 Personal history of (healed) traumatic fracture; Z91.041 Radiographic dye allergy status; Z91.013 Allergy to seafood; K12.0 Recurrent oral aphthae

== ENCOUNTER 2018-06-14 18:59 | Inpatient (IN) | payer OTHER ==
[2018-06-14 19:16] VITALS: BMI 20.7
--- NOTE | 2018-06-14 19:21 | ED PDOC ---
Arrival/HPI - General Chief Complaint: Shortness Of Breath Time Seen by Provider: 06/14/18 19:05 - History of Present Illness Narrative History of Present Illness (Text): 58 yr old Male w/ hx of COPD on 2L NC, CABG 4 weeks prior, CAD, hep c, afib on eliquis p/w sob. Pt notes sob similiar to his copd with nasal congestion started 1 hour prior after walking up his stairs. He notes that he felt sob and had mild chest pain at that time. He notes the chest pain felt like his previous COPD exacerbations. He notes taking his blood thinners this morning. He denies any falls or trauma. He notes a non-productive cough. No fever, chills or night sweats. No abdominal pain. No leg swelling. No neck stiffness. No headache. No other complaints. 06/14/18 19:21 Past Medical History - Infectious Disease Hx of Infectious Diseases: None - Cardiac Hx Cardiac Disorders: Yes (cp,[place], [place] [facility] [place]) Hx Congestive Heart Failure: Yes Hx Hypertension: Yes Hx Peripheral Edema: Yes (ble +1 pitting) Other/Comment: a fib - Pulmonary Hx Respiratory Disorders: Yes Hx Asthma: Yes Hx Chronic Obstructive Pulmonary Disease (COPD): Yes Hx Emphysema: Yes Hx Pneumonia: Yes Other/Comment: has home o2 and nebulizer machine - Neurological Hx Neurological Disorder: Yes (skull fx as a child) Hx Seizures: No Other/Comment: numb left foot - HEENT Hx HEENT Disorder: Yes (missing teeth) Other/Comment: cankor sore right tongue and sore/painful left tongue, difficulty chewing food, c/o facial left cheek cramps on and off x 2 wks - Renal Hx Renal Disorder: No - Endocrine/Metabolic Hx Endocrine Disorders: Yes Hx Diabetes Mellitus Type 2: Yes - Hematological/Oncological Hx Blood Disorders: Yes Hx Hepatitis C: Yes (active) - Integumentary Hx Dermatological Disorder: Yes Other/Comment: b/l feet red discolored sensitive to touch can't bear weight, dry toenails, discolored and lumpy elbown, old scar rfa "from shooting heroin" pt stated. c/o generalized itchy skin, healed mid chest scar - Musculoskeletal/Rheumatological Hx Musculoskeletal Disorders: Yes Hx Falls: No Hx Fractures: Yes (skull fx as a child) Hx Unsteady Gait: Yes (cane) Other/Comment: b/l feet sensitive to touch difficulty walking unable to bear weight x 3 days - Gastrointestinal Hx Gastrointestinal Disorders: Yes (bloating) Hx Gall Bladder Disease: Yes Other/Comment: constipation on and off x 3 months - Genitourinary/Gynecological Hx Genitourinary Disorders: No - Psychiatric Hx Substance Use: Yes (quit ivda heroin 1 yr ago on methadone) Other/Comment: hx ivda quit heroin 1 yr ago on methadone 35 mg 1 po daily, gets methadone from [facility] - Surgical History Hx Cardiac Catheterization: Yes (2005) Hx Cholecystectomy: Yes (10/13/14) Hx Coronary Stent: Yes (x2) Hx Open Heart Surgery: Yes (2018) - Anesthesia Hx Anesthesia: Yes Hx Anesthesia Reactions: No Hx Malignant Hyperthermia: No - Suicidal Assessment Feels Threatened In Home Enviroment: No Family/Social History Family/Social History: Unknown Family HX Smoking Status: Former Smoker Hx Alcohol Use: No Hx Substance Use: Yes (quit ivda heroin 1 yr ago on methadone) Substance used: heroin Hx Substance Use Treatment: No Allergies/Home Meds Allergies/Adverse Reactions: Allergies iodine Allergy (Severe, Verified 06/14/18 19:03) SHORTNESS OF BREATH Penicillins Allergy (Verified 06/14/18 19:03) RASH shellfish derived Allergy (Verified 06/14/18 19:03) ITCHING Iodinated Contrast- Oral and IV Dye [Iodinated Contrast Media - IV Dye] Adverse Reaction (Severe, Verified 06/14/18 19:03) RASH Home Medications: Home Meds Medication Instructions Recorded Confirmed Albuterol HFA [Ventolin HFA 90 2 puff IH [id number] PRN 02/25/16 06/14/18 mcg/actuation (8 g)] Apixaban [Eliquis] 5 mg PO BID 06/11/18 06/14/18 Folic Acid 1 mg PO DAILY 06/11/18 06/14/18 Insulin Glargine,Hum.rec.anlog 14 unit SQ BID 06/11/18 06/14/18 [Basaglar Misapen U-100] Methadone 35 mg PO DAILY 06/11/18 06/14/18 Multivitamin [Daily Multiple 1 each PO DAILY 06/11/18 06/14/18 Vitamin] Omeprazole 40 mg PO DAILY 06/11/18 06/14/18 predniSONE [Prednisone] 10 mg PO DAILY 06/11/18 06/14/18 Aspirin [Ecotrin] 81 mg PO DAILY 06/14/18 06/14/18 Loratadine [Claritin] 10 mg PO DAILY 06/14/18 06/14/18 Review of Systems - Review of Systems Constitutional: absent: Fatigue, Weight Change Eyes: absent: Vision Changes, Photophobia ENT: absent: Hearing Changes, Tinnitus, TMJ Pain, Sore Throat Respiratory: SOB, Cough, Wheezing. absent: Sputum Cardiovascular: Chest Pain. absent: Palpitations, Edema, Calf Pain Gastrointestinal: absent: Abdominal Pain, Stool Changes, Constipation, Diarrhea, Vomiting Genitourinary Male: absent: Dysuria Musculoskeletal: absent: Arthralgias, Back Pain Skin: absent: Rash, Pruritis Neurological: absent: Headache, Dizziness Psychiatric: absent: Anxiety, Depression, Suicidal Ideation Physical Exam Temperature: Afebrile Blood Pressure: Normal Pulse: Tachycardic Respiratory Rate: Normal Appearance: Positive for: Well-Appearing, Non-Toxic Pain Distress: None Mental Status: Positive for: Alert and Oriented X 3 - Systems Exam Head: Present: Atraumatic, Normocephalic Pupils: Present: PERRL Extroacular Muscles: Present: EOMI Conjunctiva: Present: Normal Ears: Present: Normal Mouth: Present: Moist Mucous Membranes Pharnyx: Present: Normal. No: ERYTHEMA, EXUDATE Nose (External): Present: Atraumatic. No: Abrasion Nose (Internal): Present: Normal Inspection, No Active Bleeding. No: Edematous, Boggy, Clear Mucous, Rhinorrhea, Purulent Mucous, Septal Hematoma Neck: Present: Normal Range of Motion. No: Meningeal Signs, MIDLINE TENDERNESS Respiratory/Chest: Present: Good Air Exchange, Wheezes. No: Respiratory Distress, Accessory Muscle Use, Rales, Retracting Cardiovascular: Present: Tachycardic Abdomen: Present: Normal Bowel Sounds. No: Tenderness, Distention, Peritoneal Signs, Rebound, Guarding Back: Present: Normal Inspection. No: CVA Tenderness, Midline Tenderness Upper Extremity: Present: Normal Inspection, NORMAL PULSES. No: Cyanosis, Edema Lower Extremity: Present: Normal Inspection, NORMAL PULSES. No: Edema Neurological: Present: GCS=15, CN II-XII Intact, Speech Normal Skin: Present: Warm, Dry Psychiatric: Present: Alert, Oriented x 3 Medical Decision Making ED Course and Treatment: 58 yr old male w/ hx of COPD, Afib, CABG, hep C, CAD p/w sob and chest pain. Pt notes mild CP and nasal congestion. No nasal abnl noted on exam. Wheezes noted on exam diffusely however. Overall pt well appearing, speaking in full sentences, however was just d/c from this hospital. Will seek labs and rx as COPD exacerbation. No fever, chills or night sweats. 06/14/18 19:31 EK, sinus tachy, no stemi 06/14/18 20:43 labs reviewed largely unremarkable. No signs of fluid overload on exam pt in NAD, still with mild wheezes. Speaking in full sentences. Paged medical insurance clerk for admission for COPD and repeat trops. 06/14/18 21:04 wheezes largely resolved, however given CP will seek admission for serial trops appreciate consultation w/ Dr. Davis- we are to admit to hospitalist service. pt in NAD, speaking in full sentences, wheezes mostly resolved, agreeable in plan. - RAD Interpretation Radiology Orders: 06/14/18 19:16 CHEST PORTABLE [RAD] Stat - Medication Orders Current Medication Orders: Albuterol/Ipratropium (Duoneb 3 Mg/0.5 Mg (3 Ml) Ud) 3 ml IH Q15M LLUVIA Stop: 06/14/18 19:46 Discontinued Medications Methylprednisolone (Solu-Medrol) 125 mg IVP STAT STA Stop: 06/14/18 19:15 Disposition/Present on Arrival - Present on Arrival Any Indicators Present on Arrival: No History of DVT/PE: No History of Uncontrolled Diabetes: No Urinary Catheter: No History Surgical Site Infection Following: None - Disposition Have Diagnosis and Disposition been Completed?: Yes Diagnosis: COPD (chronic obstructive pulmonary disease), Chest pain Disposition Time: 21:06 Condition: GOOD Discharge Instructions (ExitCare): Chest Pain (ED) Forms: [employer] ([place]an)
[2018-06-14] MEDS: Albuterol-Ipratrop 3 mg / 0.5 (3 ml) UD IH SCH (19:46)
[2018-06-14 19:56] LABS: HEMOGLOBIN 11.9 g/dL (14.0-18.0); LYMPH # 1.1 (1.2-3.4); LYMPH % 7.2 % (22.0-35.0); MEAN CORPUSCULAR HEMOGLOBIN 27.7 pg (25.0-35.0); MEAN CORPUSCULAR HGB CONC 33.4 g/dl (31.0-37.0); MEAN PLATELET VOLUME 9.8 fl (7.0-11.0); MONO % 6.5 % (1.0-6.0); RBC 4.29 10^6/uL (3.5-6.1); RED CELL DISTRIBUTION WIDTH 14.5 % (11.5-14.5); WHITE BLOOD COUNT 15.2 10^3/uL (4.5-11.0)
[2018-06-14 20:19] LABS: ALBUMIN 3.7 g/dL (3.0-4.8); ALT/SGPT 39 U/L (7-56); AST/SGOT 59 U/L (17-59); BLOOD UREA NITROGEN 17 mg/dL (7-21); CALCIUM 8.9 mg/dL (8.4-10.5); GFR NON-AFRICAN AMERICAN > 60
[2018-06-14 20:27] LABS: B-TYPE NATRIURETIC PEPTIDE 479 pg/mL (0-450)
[2018-06-14 20:32] LABS: TROPONIN I < 0.01 ng/mL
--- NOTE | 2018-06-14 22:42 | CP.PCM.HP ---
<Chrissie Driscoll - Last Filed: 06/15/18 01:39> History of Present Illness - History of Present Illness History of Present Illness: Chrissie Driscoll, PGY1 Hospital H&P This is a 58 year old male with past medical history of COPD on 2L home O2, asthma, HTN, CAD s/p CABG, hepatitis C, polysubstance abuse on methadone from [facility], afib on eliquis presenting to the hospital for SOB that began this afternoon while walking up the stairs. Patient was discharged from the hospital earlier today after two day hospital course for COPD exacerbation. Patient states that his symptoms of cough, congestion and SOB improved before leaving the hospital but worsened upon returning home. He endorses current symptoms are similar to initial symptoms he had during hospital admission earlier this week. His current symptoms are SOB on exertion, non productive cough and nausea. He currently denies CP, vomiting, fevers, headaches, back pain, abdominal pain, diarrhea, constipation, urinary complaints, numbness, tingling, swelling, recent travel, trauma and lifestyle change including diet. 12 point ROS noted here, otherwise unremarkable. PMD Dr. Mason PMH: COPD on 2L home O2, asthma, HTN, CAD s/p CABG, hepatitis C, polysubstance abuse on methadone from [facility], afib on eliquis PSH: CABG, cholecystectomy SHx: previous alcohol/tobacco (1 PPD x 20 years)/heroin use FHx: mother (HTN) Allergies: iodine, penicillins, contrast Pharmacy: [facility] Present on Admission - Present on Admission Any Indicators Present on Admission: No Past Patient History - Infectious Disease Hx of Infectious Diseases: None - Past Medical History & Family History Past Medical History?: Yes - Past Social History Smoking Status: Former Smoker - CARDIAC Hx Cardiac Disorders: Yes (cp,mi, double bypass [facility] 4 wks ago) Hx Congestive Heart Failure: Yes Hx Hypertension: Yes Hx Peripheral Edema: Yes (ble +1 pitting) Other/Comment: a fib - PULMONARY Hx Respiratory Disorders: Yes Hx Asthma: Yes Hx Chronic Obstructive Pulmonary Disease (COPD): Yes Hx Emphysema: Yes Hx Pneumonia: Yes Other/Comment: has home o2 and nebulizer machine - NEUROLOGICAL Hx Neurological Disorder: Yes (skull fx as a child) Hx Seizures: No Other/Comment: numb left foot - HEENT Hx HEENT Problems: Yes (missing teeth) Other/Comment: cankor sore right tongue and sore/painful left tongue, difficulty chewing food, c/o facial left cheek cramps on and off x 2 wks - RENAL Hx Chronic Kidney Disease: No - ENDOCRINE/METABOLIC Hx Endocrine Disorders: Yes Hx Diabetes Mellitus Type 2: Yes - HEMATOLOGICAL/ONCOLOGICAL Hx Blood Disorders: Yes Hx Hepatitis C: Yes (active) - INTEGUMENTARY Hx Dermatological Problems: Yes Other/Comment: b/l feet red discolored sensitive to touch can't bear weight, dry toenails, discolored and lumpy elbown, old scar rfa "from shooting heroin" pt stated. c/o generalized itchy skin, healed mid chest scar - MUSCULOSKELETAL/RHEUMATOLOGICAL Hx Musculoskeletal Disorders: Yes Hx Falls: No Hx Fractures: Yes (skull fx as a child) Hx Unsteady Gait: Yes (cane) Other/Comment: b/l feet sensitive to touch difficulty walking unable to bear weight x 3 days - GASTROINTESTINAL Hx Gastrointestinal Disorders: Yes (bloating) Hx Gall Bladder Disease: Yes Other/Comment: constipation on and off x 3 months - GENITOURINARY/GYNECOLOGICAL Hx Genitourinary Disorders: No - PSYCHIATRIC Hx Substance Use: Yes (quit ivda heroin 1 yr ago on methadone) Other/Comment: hx ivda quit heroin 1 yr ago on methadone 35 mg 1 po daily, gets methadone from [facility] - SURGICAL HISTORY Hx Cardiac Catheterization: Yes (2004) Hx Cholecystectomy: Yes (10/13/14) Hx Coronary Stent: Yes (x2) Hx Open Heart Surgery: Yes (2018) - ANESTHESIA Hx Anesthesia: Yes Hx Anesthesia Reactions: No Hx Malignant Hyperthermia: No Meds Allergies/Adverse Reactions: Allergies Allergy/AdvReac Type Severity Reaction Status Date / Time iodine Allergy Severe SHORTNESS Verified 06/14/18 19:03 OF BREATH Penicillins Allergy RASH Verified 06/14/18 19:03 shellfish derived Allergy ITCHING Verified 06/14/18 19:03 Iodinated Contrast- Oral and AdvReac Severe RASH Verified 06/14/18 19:03 IV Dye [Iodinated Contrast Media - IV Dye] Physical Exam - Constitutional Appears: No Acute Distress - Head Exam Head Exam: ATRAUMATIC, NORMAL INSPECTION - Eye Exam Eye Exam: EOMI Pupil Exam: PERRL - ENT Exam ENT Exam: Mucous Membranes Moist - Respiratory Exam Respiratory Exam: Accessory Muscle Use. absent: Respiratory Distress Additional comments: wheezing B/L in lung bases, worse with expiration - Cardiovascular Exam Cardiovascular Exam: Tachycardia, +S1, +S2 - GI/Abdominal Exam GI & Abdominal Exam: Normal Bowel Sounds, Soft. absent: Firm, Guarding, Tenderness - Extremities Exam Extremities exam: Positive for: normal inspection, pedal pulses present. Negative for: calf tenderness, tenderness - Neurological Exam Neurological exam: Alert, CN II-XII Intact, Oriented x3 - Skin Skin Exam: Normal Color, Warm Results - Vital Signs Recent Vital Signs: Last Vital Signs Temp 97.9 F 06/14/18 19:00 Pulse 96 H 06/14/18 21:29 Resp 19 06/14/18 21:29 BP 140/91 H 06/14/18 21:29 Pulse Ox 99 06/14/18 21:29 - Labs Result Diagrams: 06/14/18 19:52 06/14/18 19:52 Labs: Laboratory Results - last 24 hr 06/14/18 06/14/18 19:52 19:52 WBC 15.2 H RBC 4.29 Hgb 11.9 L Hct 35.6 L MCV 83.0 MCH 27.7 MCHC 33.4 RDW 14.5 Plt Count 215 MPV 9.8 Neut % (Auto) 86.3 H Lymph % (Auto) 7.2 L [place] % (Auto) 6.5 H Eos % (Auto) 0.0 L Baso % (Auto) 0.0 Lymph # (Auto) 1.1 L [place] # (Auto) 1.0 H Eos # (Auto) 0.0 Baso # (Auto) 0.00 Absolute Neuts (auto) 13.09 H Sodium 134 Potassium 4.5 Chloride 99 Carbon Dioxide 26 Anion Gap 13 BUN 17 Creatinine 0.7 L Est GFR ( Amer) > 60 Est GFR (Non-Af Amer) > 60 Random Glucose 204 H Calcium 8.9 Total Bilirubin 0.7 AST 59 ALT 39 Alkaline Phosphatase 72 Troponin I < 0.01 NT-Pro-B Natriuret Pep 479 H Total Protein 7.4 Albumin 3.7 Globulin 3.7 Albumin/Globulin Ratio 1.0 L Assessment & Plan - Assessment and Plan (Free Text) Assessment: This is a 58 year old male with past medical history of COPD on 2L home O2, asthma, HTN, CAD s/p CABG, hepatitis C, polysubstance abuse on methadone from [facility], afib on eliquis presenting to the hospital for SOB that began this afternoon while walking up the stairs. Plan: COPD exacerbation -afebrile, WBC is 15 likely from steriod use -CXR shows no active disease, f/u official read -duonebs prn and krissy -solumedrol 40 q12 -per ID today, does not need antibiotics -blood culture negative x 3 days Hx of Systolic CHF -echo 06/12/18 showed EF of 40%, RVSP 29, severe hypokinesis of the apical, anterior and anteroseptal wall segments -cardiology on consult, Dr. Plata -troponin is <0.01, BNP is 479 -EKG and troponin in AM -continue ASA 81mg, lopressor 25mg BID, cozaar 25mg daily and digoxin 0.125mg daily Hx of AFib -continue eliquis 5mg BID -cardiology on consult, Dr. Plata Hx of DM2 -A1c is 7.1 -ISS medium scale Hx HTN -continue home medications Hx polysubstance abuse -currently on methodone 35mg daily from [facility] PPX: Home eliquis/protonix HHD Patient seen and case discussed with attending, Dr. Davis <Gavino Davis - Last Filed: 06/15/18 06:16> Results - Vital Signs Recent Vital Signs: Last Vital Signs Temp 97.7 F 06/15/18 00:00 Pulse 91 H 06/15/18 02:00 Resp 13 06/15/18 00:00 BP 139/80 06/15/18 00:00 Pulse Ox 99 06/14/18 21:29 - Labs Result Diagrams: 06/14/18 19:52 06/14/18 19:52 Labs: Laboratory Results - last 24 hr 06/14/18 06/14/18 06/15/18 19:52 19:52 00:45 WBC 15.2 H RBC 4.29 Hgb 11.9 L Hct 35.6 L MCV 83.0 MCH 27.7 MCHC 33.4 RDW 14.5 Plt Count 215 MPV 9.8 Neut % (Auto) 86.3 H Lymph % (Auto) 7.2 L [place] % (Auto) 6.5 H Eos % (Auto) 0.0 L Baso % (Auto) 0.0 Lymph # (Auto) 1.1 L [place] # (Auto) 1.0 H Eos # (Auto) 0.0 Baso # (Auto) 0.00 Absolute Neuts (auto) 13.09 H Sodium 134 Potassium 4.5 Chloride 99 Carbon Dioxide 26 Anion Gap 13 BUN 17 Creatinine 0.7 L Est GFR ( Amer) > 60 Est GFR (Non-Af Amer) > 60 Random Glucose 204 H Calcium 8.9 Total Bilirubin 0.7 AST 59 ALT 39 Alkaline Phosphatase 72 Troponin I < 0.01 < 0.01 NT-Pro-B Natriuret Pep 479 H Total Protein 7.4 Albumin 3.7 Globulin 3.7 Albumin/Globulin Ratio 1.0 L Attending/Attestation - Attestation I have personally seen and examined this patient.: Yes I have fully participated in the care of the patient.: Yes I have reviewed all pertinent clinical information: Yes
[2018-06-14] MEDS ORDERED: Dextrose 50% SYRINGE Inj (50 ml) IV PRN (23:41)
[2018-06-14] MEDS ORDERED: Albuterol-Ipratrop 3 mg / 0.5 (3 ml) UD IH PRN (23:41)
[2018-06-15] MEDS: Albuterol-Ipratrop 3 mg / 0.5 (3 ml) UD IH SCH ×3 (01:38→15:07)
[2018-06-15 06:20] LABS: HEMOGLOBIN 12.3 g/dL (14.0-18.0); LYMPH # 0.6 (1.2-3.4); LYMPH % 5.2 % (22.0-35.0); MEAN CELL VOLUME 83.4 fl (80.0-105.0); MEAN CORPUSCULAR HEMOGLOBIN 27.2 pg (25.0-35.0); MEAN CORPUSCULAR HGB CONC 32.6 g/dl (31.0-37.0); MEAN PLATELET VOLUME 9.7 fl (7.0-11.0); MONO # 0.4 (0.1-0.6); MONO % 3.2 % (1.0-6.0); RBC 4.52 10^6/uL (3.5-6.1); RED CELL DISTRIBUTION WIDTH 14.6 % (11.5-14.5)
[2018-06-15] MEDS: Pantoprazole 40 mg EC Tab PO SCH (06:34)
[2018-06-15 06:37] LABS: ALBUMIN 3.8 g/dL (3.0-4.8); ALT/SGPT 41 U/L (7-56); AST/SGOT 45 U/L (17-59); BLOOD UREA NITROGEN 15 mg/dL (7-21); CALCIUM 9.3 mg/dL (8.4-10.5); GFR NON-AFRICAN AMERICAN > 60
[2018-06-15 06:39] LABS: TROPONIN I < 0.01 ng/mL
[2018-06-15] MEDS ORDERED: Budesonide 0.5 mg/2 ml Inhal Susp UD IH STA (07:28)
--- NOTE | 2018-06-15 08:42 | CARD ---
APPROVED REPORT Date of service: 06/15/2018 EKG Measurement Heart [id number] <Conclusion> Normal sinus rhythm Possible Left atrial enlargement Left ventricular hypertrophy with repolarization abnormality Inferior infarct, age undetermined Abnormal ECG
--- NOTE | 2018-06-15 08:48 | CARD ---
APPROVED REPORT Date of service: 06/14/2018 EKG Measurement Heart [id number] <Conclusion> Sinus tachycardia Left ventricular hypertrophy with repolarization abnormality Possible Inferior infarct, age undetermined Abnormal ECG
[2018-06-15] MEDS: Insulin Lispro (humaLOG) MEDIUM Coverage SC SCH ×4 (09:00→23:44)
[2018-06-15] MEDS: MethylPREDNISolone 40 mg Vial IVP SCH ×2 (10:58→23:53)
[2018-06-15] MEDS: Arformoterol 15 mcg/2 ml Inh Sol IH SCH (11:01)
[2018-06-15] MEDS: Digoxin 125 mcg (0.125 mg) Tab PO SCH (15:10)
--- NOTE | 2018-06-15 15:56 | RAD ---
Date of service: 06/14/2018 HISTORY: SOB COMPARISON: Comparison chest 06/13/2018 FINDINGS: LUNGS: No acute consolidation however there does appear to be some minimal linear atelectasis and or scarring left lung base. Questionable parenchymal scarring and/or small granuloma left lung apex PLEURA: No significant pleural effusion identified, no pneumothorax apparent. CARDIOVASCULAR: Minimal aortic atherosclerotic calcification present. Sternotomy wires and CABG clips again noted. Normal cardiac size. No pulmonary vascular congestion. OSSEOUS STRUCTURES: No significant abnormalities. VISUALIZED UPPER ABDOMEN: Normal. OTHER FINDINGS: None. IMPRESSION: Minimal linear atelectasis and or scarring left lung base. Questionable scarring and/or small granuloma left lung apex
[2018-06-15] MEDS ORDERED: Insulin Regular 1 UNITS/0.01 ML ML ONE (16:50)
--- NOTE | 2018-06-15 23:54 | CON ---
DATE: 06/15/2018 REASON FOR CONSULTATION: Shortness of breath. HISTORY OF PRESENT ILLNESS: The patient is a 58 years old male who has a history of coronary artery disease, underwent double bypass surgery at [facility] this past December where he received a INGRAM to the LAD and saphenous vein graft to the obtuse marginal branch. The patient was placed on Eliquis for paroxysmal atrial fibrillation following that. The patient was recently discharged after he was admitted for shortness of breath and chest pain. Echocardiographic study done three days ago revealed ejection fraction estimated at about 40%, mild mitral insufficiency. The patient denies any retrosternal chest pain at this time. SOCIAL HISTORY: The patient is a former ETOH abuser. He has been currently on methadone. He is a former smoker. MEDICATIONS: Brovana 15 mcg inhalation every 12 hours, Cozaar 25 mg once a day, albuterol inhaler every 2 hours p.r.n., aspirin 81 mg once a day, Eliquis 5 mg twice a day, Lopressor 25 mg twice a day, methadone 35 mg once a day, Protonix 40 mg once a day, Solu-Medrol 40 mg intravenously every 12 hours. PAST MEDICAL HISTORY: Cardiomyopathy, chronic obstructive lung disease, ETOH abuse, and recently in 12/2017 double bypass surgery. PHYSICAL EXAMINATION: GENERAL: The patient is a middle-aged male who does not appear to be in any acute distress. VITAL SIGNS: Blood pressure 172/96, heart rate 85, temperature 97.8, respirations 18. HEENT: Normocephalic. CHEST: Bilateral rhonchi. HEART: S1, S2 regular. ABDOMEN: Soft. EXTREMITIES: No edema. LABORATORY DATA: Hemoglobin, hematocrit 12.3 and 37.7, white count 12, platelet count 210,000. Today's SMA-7 is within normal limits except for glucose of 279 and creatinine 0.5. Three sets of troponins are negative. Admitting EKG revealed sinus rhythm, possible left atrial enlargement, LVH with repolarization changes, old inferior infarct. Admitting chest x-ray is unremarkable except for sternotomy wound. ASSESSMENT: 1. Systolic heart failure with mildly depressed ejection fraction. 2. Paroxysmal atrial fibrillation. 3. Recent double coronary artery bypass surgery. 4. Chronic obstructive lung disease. RECOMMENDATIONS: Case was discussed with Dr. Dunbar. The patient will be maintained on Brovana, Cozaar, digoxin 0.125 mg daily, aspirin 81 mg once a day, Eliquis 5 mg twice a day, Lopressor 25 mg twice a day, methadone 35 mg once a day, and Solu-Medrol 40 mg intravenously every 12 hours. Emory Plata MD
[2018-06-16 06:23] VITALS: O2SAT 98
[2018-06-16] MEDS: Pantoprazole 40 mg EC Tab PO SCH (06:32)
[2018-06-16] MEDS: Albuterol-Ipratrop 3 mg / 0.5 (3 ml) UD IH SCH ×2 (07:39→13:15)
[2018-06-16] MEDS: Arformoterol 15 mcg/2 ml Inh Sol IH SCH (07:40)
[2018-06-16 08:02] LABS: EOS # 0.1 (0.0-0.7); EOS % 1.2 % (1.5-5.0); HEMOGLOBIN 13.3 g/dL (14.0-18.0); LYMPH % 16.4 % (22.0-35.0); MEAN CELL VOLUME 83.5 fl (80.0-105.0); MEAN CORPUSCULAR HEMOGLOBIN 27.4 pg (25.0-35.0); MEAN CORPUSCULAR HGB CONC 32.8 g/dl (31.0-37.0); MEAN PLATELET VOLUME 9.7 fl (7.0-11.0); MONO % 8.3 % (1.0-6.0); RBC 4.86 10^6/uL (3.5-6.1); RED CELL DISTRIBUTION WIDTH 14.8 % (11.5-14.5); WHITE BLOOD COUNT 12.2 10^3/uL (4.5-11.0)
[2018-06-16] MEDS ORDERED: MethylPREDNISolone 40 mg Vial IVP SCH (08:12)
[2018-06-16 08:21] LABS: ALB/GLOB RATIO 0.9 (1.1-1.8); ALBUMIN 3.8 g/dL (3.0-4.8); ALT/SGPT 55 U/L (7-56); AST/SGOT 73 U/L (17-59); BLOOD UREA NITROGEN 19 mg/dL (7-21); CALCIUM 9.3 mg/dL (8.4-10.5); GFR NON-AFRICAN AMERICAN > 60
[2018-06-16] MEDS: Insulin Lispro (humaLOG) MEDIUM Coverage SC SCH ×3 (08:26→17:45)
--- NOTE | 2018-06-16 11:17 | CT ---
Date of service: 06/16/2018 PROCEDURE: CT Chest without contrast HISTORY: shortness of breath COMPARISON: None available. TECHNIQUE: Contiguous axial images were obtained through the chest without intravenous contrast enhancement. Sagittal and coronal reconstructions were performed. Radiation dose: Total exam DLP = 206.58 mGy-cm. This CT exam was performed using one or more of the following dose reduction techniques: Automated exposure control, adjustment of the mA and/or kV according to patient size, and/or use of iterative reconstruction technique. FINDINGS: LUNGS: Emphysema more severe in the upper lobes. Mild interstitial disease. No focal consolidation. Mild peribronchial thickening MEDIASTINUM: Unremarkable thoracic aorta. No aneurysm. Normal sized heart. Main pulmonary artery unremarkable. No vascular congestion. No lymphadenopathy. Aortic calcification and coronary artery calcifications PLEURA: No pleural fluid. No pneumothorax. BONES: No fracture. No destructive lesion. UPPER ABDOMEN: Grossly unremarkable. OTHER FINDINGS: None. IMPRESSION: Emphysema more severe in the upper lobes. Mild interstitial disease. No focal consolidation. Mild peribronchial thickening
--- NOTE | 2018-06-16 12:21 | CP.PCM.CON ---
History of Present Illness - History of Present Illness History of Present Illness: Pulmonary Consult Note Reason for consult: SOB Patient is 58yo male with PMHx of COPD, on home O2, former smoker, quit last year, 20+pk years, CAD s/p CABG, CHF EF 40%, Hepatitis C, polysubstance abuse on methadone from [facility], Afib on Eliquis, presents to the [facility] with difficulty breathing//SOB. Pt was just recetnyl discharged from the hospital, for presumed COPD exacerbation, returned again after he felt he could get enough oxygen through his nasal passages. Pt denies fever, chills, CP, palpitations, JACOBSEN, dizziness, weight loss. No other constitutional symptoms. At home on Breo, and Ventolin PMH: COPD on 2L home O2, asthma, HTN, CAD s/p CABG, hepatitis C, polysubstance abuse on methadone from [facility], afib on eliquis PSH: CABG, cholecystectomy SHx: previous alcohol/tobacco (1 PPD x 20 years)/heroin use FHx: mother (HTN) Allergies: iodine, penicillins, contrast Review of Systems - Review of Systems Review of Systems: as per HPI Past Patient History - Infectious Disease Hx of Infectious Diseases: None - Past Medical History & Family History Past Medical History?: Yes - Past Social History Smoking Status: Former Smoker - CARDIAC Hx Cardiac Disorders: Yes (cp,mi, double bypass [facility] 4 wks ago) Hx Congestive Heart Failure: Yes Hx Hypertension: Yes Hx Peripheral Edema: Yes (ble +1 pitting) Other/Comment: a fib - PULMONARY Hx Respiratory Disorders: Yes Hx Asthma: Yes Hx Chronic Obstructive Pulmonary Disease (COPD): Yes Hx Emphysema: Yes Hx Pneumonia: Yes Other/Comment: has home o2 and nebulizer machine - NEUROLOGICAL Hx Neurological Disorder: Yes (skull fx as a child) Hx Seizures: No Other/Comment: numb left foot - HEENT Hx HEENT Problems: Yes (missing teeth) Other/Comment: cankor sore right tongue and sore/painful left tongue, difficulty chewing food, c/o facial left cheek cramps on and off x 2 wks - RENAL Hx Chronic Kidney Disease: No - ENDOCRINE/METABOLIC Hx Endocrine Disorders: Yes Hx Diabetes Mellitus Type 2: Yes - HEMATOLOGICAL/ONCOLOGICAL Hx Blood Disorders: Yes Hx Hepatitis C: Yes (active) - INTEGUMENTARY Hx Dermatological Problems: Yes Other/Comment: b/l feet red discolored sensitive to touch can't bear weight, dry toenails, discolored and lumpy elbown, old scar rfa "from shooting heroin" pt stated. c/o generalized itchy skin, healed mid chest scar - MUSCULOSKELETAL/RHEUMATOLOGICAL Hx Falls: No - GASTROINTESTINAL Hx Gastrointestinal Disorders: Yes (bloating) Hx Gall Bladder Disease: Yes Other/Comment: constipation on and off x 3 months - GENITOURINARY/GYNECOLOGICAL Hx Genitourinary Disorders: No - PSYCHIATRIC Other/Comment: hx ivda quit heroin 1 yr ago on methadone 35 mg 1 po daily, gets methadone from [facility] - SURGICAL HISTORY Hx Cardiac Catheterization: Yes (2004) Hx Cholecystectomy: Yes (10/13/14) Hx Coronary Stent: Yes (x2) Hx Open Heart Surgery: Yes (2018) - ANESTHESIA Hx Anesthesia: Yes Hx Anesthesia Reactions: No Hx Malignant Hyperthermia: No Meds Allergies/Adverse Reactions: Allergies Allergy/AdvReac Type Severity Reaction Status Date / Time iodine Allergy Severe SHORTNESS Verified 06/14/18 19:03 OF BREATH Penicillins Allergy RASH Verified 06/14/18 19:03 shellfish derived Allergy ITCHING Verified 06/14/18 19:03 Iodinated Contrast- Oral and AdvReac Severe RASH Verified 06/14/18 19:03 IV Dye [Iodinated Contrast Media - IV Dye] - Medications Medications: Current Medications Albuterol/Ipratropium (Duoneb 3 Mg/0.5 Mg (3 Ml) Ud) 3 ml IH Q2H PRN PRN Reason: Shortness of Breath Albuterol/Ipratropium (Duoneb 3 Mg/0.5 Mg (3 Ml) Ud) 3 ml IH [id number] [facility] Last Admin: 06/16/18 07:39 Dose: 3 ml Apixaban (Eliquis) 5 mg PO BID [facility]; Protocol Last Admin: 06/16/18 09:15 Dose: 5 mg Arformoterol Tartrate (Brovana) 15 mcg IH [id number] [facility] Last Admin: 06/16/18 07:40 Dose: 15 mcg Aspirin (Ecotrin) 81 mg PO DAILY [facility] Last Admin: 06/16/18 09:15 Dose: 81 mg Dextrose (Dextrose 50% Inj) 0 ml IV STAT PRN; Protocol PRN Reason: Hypoglycemia Protocol Digoxin (Digoxin) 0.125 mg PO 1400 [facility] Last Admin: 06/15/18 15:10 Dose: 0.125 mg Dextrose (Dextrose 5% In Water 1000 Ml) 1,000 mls @ 0 mls/hr IV .Q0M PRN; Protocol PRN Reason: Hypoglycemia Protocol Insulin Human Lispro (Humalog Med) 0 units SC ACHS [facility]; Protocol Last Admin: 06/16/18 08:26 Dose: Not Given Losartan Potassium (Cozaar) 25 mg PO DAILY [facility] Last Admin: 06/16/18 09:15 Dose: 25 mg Methadone HCl (Methadone) 35 mg PO DAILY [facility] Last Admin: 06/16/18 09:11 Dose: 35 mg Methylprednisolone (Solu-Medrol) 20 mg IVP Q12 [facility] Last Admin: 06/16/18 09:14 Dose: 20 mg Metoprolol Tartrate (Lopressor) 25 mg PO BID [facility] Last Admin: 06/16/18 09:14 Dose: 25 mg Pantoprazole Sodium (Protonix Ec Tab) 40 mg PO 0600 [facility] Last Admin: 06/16/18 06:32 Dose: 40 mg Sodium Chloride ([place] Nasal [place]) 0 ml NS Q2H PRN PRN Reason: Nasal congestion Last Admin: 06/16/18 10:58 Dose: 2 spr Physical Exam - Constitutional Appears: Non-toxic, No Acute Distress - Head Exam Head Exam: NORMAL INSPECTION - Eye Exam Eye Exam: Normal appearance - ENT Exam ENT Exam: Mucous Membranes Moist - Neck Exam Neck exam: Positive for: Full Rom - Respiratory Exam Respiratory Exam: Wheezes, NORMAL BREATHING PATTERN - Cardiovascular Exam Cardiovascular Exam: REGULAR RHYTHM, +S1, +S2 - GI/Abdominal Exam GI & Abdominal Exam: Normal Bowel Sounds, Soft - Extremities Exam Extremities exam: Positive for: normal inspection - Neurological Exam Neurological exam: Alert, Oriented x3 - Psychiatric Exam Psychiatric exam: Normal Mood - Skin Skin Exam: Normal Color, Warm Results - Vital Signs Recent Vital Signs: Last Vital Signs Temp 98 F 06/16/18 06:00 Pulse 83 06/16/18 10:00 Resp 20 06/16/18 06:00 BP 115/79 06/16/18 09:15 Pulse Ox 98 06/16/18 06:00 - Labs Result Diagrams: 06/16/18 07:50 06/16/18 07:50 Labs: Laboratory Results - last 24 hr 06/15/18 06/15/18 06/15/18 13:15 16:29 22:58 WBC RBC Hgb Hct MCV MCH MCHC RDW Plt Count MPV Neut % (Auto) Lymph % (Auto) [place] % (Auto) Eos % (Auto) Baso % (Auto) Lymph # (Auto) [place] # (Auto) Eos # (Auto) Baso # (Auto) Absolute Neuts (auto) Sodium Potassium Chloride Carbon Dioxide Anion Gap BUN Creatinine Est GFR ( Amer) Est GFR (Non-Af Amer) POC Glucose (mg/dL) 97 302 H 400 H* Random Glucose Calcium Total Bilirubin AST ALT Alkaline Phosphatase Total Protein Albumin Globulin Albumin/Globulin Ratio 06/16/18 06/16/18 07:50 07:50 WBC 12.2 H RBC 4.86 Hgb 13.3 L Hct 40.6 L MCV 83.5 MCH 27.4 MCHC 32.8 RDW 14.8 H Plt Count 232 MPV 9.7 Neut % (Auto) 74.1 H Lymph % (Auto) 16.4 L [place] % (Auto) 8.3 H Eos % (Auto) 1.2 L Baso % (Auto) 0.0 Lymph # (Auto) 2.0 [place] # (Auto) 1.0 H Eos # (Auto) 0.1 Baso # (Auto) 0.00 Absolute Neuts (auto) 9.03 H Sodium 135 Potassium 4.6 Chloride 100 Carbon Dioxide 28 Anion Gap 12 BUN 19 Creatinine 0.7 L Est GFR ( Amer) > 60 Est GFR (Non-Af Amer) > 60 POC Glucose (mg/dL) Random Glucose 160 H Calcium 9.3 Total Bilirubin 0.9 AST 73 H D ALT 55 Alkaline Phosphatase 82 Total Protein 7.8 Albumin 3.8 Globulin 4.0 Albumin/Globulin Ratio 0.9 L - Imaging and Cardiology CT scan - chest Status: Image reviewed by me, Report reviewed by me Assessment & Plan - Assessment and Plan (Free Text) Assessment: Patient is 58yo male with SOB SOB COPD CAD s/p CABg CHF, EF 40% Currently afebrile, BP stable, comfortable in NAD, on room, air, on exam has very minimal end exp wheezing Patient complaining about dry nasal passages, inability to catch breath through his nose, reports the oxygen is "dry" CT chest grossly unchanged, Emphysema, no consolidation Recommend: - supp o2 as needed, goal sat 90%, Humidified O2 - Fluticasone nasal spray, Saline nasal spray - Cont with Duonebs PRN - Taper Solumedrol to Prednisone 40mg PO x 5 days - would hold off Abx - Cardiology follow up, CHF optimization - PT/OT - DVT ppx - Pulmonary will continue to follow
[2018-06-16] MEDS ORDERED: Fluticasone Nasal 50 mcg/Spray NS SCH (12:30)
[2018-06-16] MEDS: Digoxin 125 mcg (0.125 mg) Tab PO SCH (13:48)
[2018-06-16 13:49] VITALS: PULSE 75
--- NOTE | 2018-06-16 17:18 | CP.PCM.DIS ---
<ChapmanThiago butcher - Last Filed: 06/16/18 17:09> Provider - Provider Date of Admission: 06/14/18 21:03 Attending physician: Grayson Kaur MD Primary care physician: Isabella Consults: 06/14/18 23:41 Cardiology Consult Routine Comment: Consulting Provider: Emory Plata Consulting Physician: Emory Plata Reason for Consult: hx of systolic CHF 06/15/18 07:49 Pulmonology Consult Routine Comment: Consulting Provider: Maura Cohen Consulting Physician: Maura Cohen Reason for Consult: recurrent COPD exacerbation/shortness of breath post CABG Time Spent in preparation of Discharge (in minutes): 40 Diagnosis - Discharge Diagnosis (1) COPD (chronic obstructive pulmonary disease) Status: Chronic (2) COPD exacerbation Status: Chronic Hospital Course - Lab Results Lab Results: Most Recent Lab Values WBC 12.2 10^3/uL (4.5-11.0) H 06/16/18 07:50 RBC 4.86 10^6/uL (3.5-6.1) 06/16/18 07:50 Hgb 13.3 g/dL (14.0-18.0) L 06/16/18 07:50 Hct 40.6 % (42.0-52.0) L 06/16/18 07:50 MCV 83.5 fl (80.0-105.0) 06/16/18 07:50 MCH 27.4 pg (25.0-35.0) 06/16/18 07:50 MCHC 32.8 g/dl (31.0-37.0) 06/16/18 07:50 RDW 14.8 % (11.5-14.5) H 06/16/18 07:50 Plt Count 232 10^3/uL (120.0-450.0) 06/16/18 07:50 MPV 9.7 fl (7.0-11.0) 06/16/18 07:50 Neut % (Auto) 74.1 % (50.0-68.0) H 06/16/18 07:50 Lymph % (Auto) 16.4 % (22.0-35.0) L 06/16/18 07:50 [place] % (Auto) 8.3 % (1.0-6.0) H 06/16/18 07:50 Eos % (Auto) 1.2 % (1.5-5.0) L 06/16/18 07:50 Baso % (Auto) 0.0 % (0.0-3.0) 06/16/18 07:50 Lymph # (Auto) 2.0 (1.2-3.4) 06/16/18 07:50 [place] # (Auto) 1.0 (0.1-0.6) H 06/16/18 07:50 Eos # (Auto) 0.1 (0.0-0.7) 06/16/18 07:50 Baso # (Auto) 0.00 K/mm3 (0.0-2.0) 06/16/18 07:50 Absolute Neuts (auto) 9.03 (1.4-6.5) H 06/16/18 07:50 Sodium 135 mmol/L (132-148) 06/16/18 07:50 Potassium 4.6 mmol/L (3.6-5.0) 06/16/18 07:50 Chloride 100 mmol/L (98-107) 06/16/18 07:50 Carbon Dioxide 28 mmol/L (21-33) 06/16/18 07:50 Anion Gap 12 (10-20) 06/16/18 07:50 BUN 19 mg/dL (7-21) 06/16/18 07:50 Creatinine 0.7 mg/dl (0.8-1.5) L 06/16/18 07:50 Est GFR ( Amer) > 60 06/16/18 07:50 Est GFR (Non-Af Amer) > 60 06/16/18 07:50 POC Glucose (mg/dL) 400 mg/dL (65-110) H* 06/15/18 22:58 Random Glucose 160 mg/dL (70-110) H 06/16/18 07:50 Calcium 9.3 mg/dL (8.4-10.5) 06/16/18 07:50 Phosphorus 3.4 mg/dL (2.5-4.5) 06/15/18 06:00 Magnesium 1.9 mg/dL (1.7-2.2) 06/15/18 06:00 Total Bilirubin 0.9 mg/dL (0.2-1.3) 06/16/18 07:50 AST 73 U/L (17-59) H D 06/16/18 07:50 ALT 55 U/L (7-56) 06/16/18 07:50 Alkaline Phosphatase 82 U/L (38-126) 06/16/18 07:50 Troponin I < 0.01 ng/mL 06/15/18 06:00 NT-Pro-B Natriuret Pep 479 pg/mL (0-450) H 06/14/18 19:52 Total Protein 7.8 g/dL (5.8-8.3) 06/16/18 07:50 Albumin 3.8 g/dL (3.0-4.8) 06/16/18 07:50 Globulin 4.0 gm/dL 06/16/18 07:50 Albumin/Globulin Ratio 0.9 (1.1-1.8) L 06/16/18 07:50 - Hospital Course Hospital Course: Thiago Chapman DO, PGY-1 Hospitalist Discharge Summary for Dr. Kaur Upon admission: Patient is a 58 yo male with PMH of COPD (on 2L home O2), asthma, HTN, CAD (s/p CABG), Hep C, polysubstance abuse on methadone from [facility] (on eliis) presented to hospital for SOB earlier that afternoon while walking up the stairs. Patient was discharged from the hospital earlier on the day of presentation after a two day hospital couse for COPD exa cerbation. He was discharged on prednisone taper, atrovent, and Incruse inhaler. Patient stated his symptoms of cough, congestion, SOB improved before leaving the hospital but worsened when he returned home. Patient stated that the current symptoms were similar to initial symptoms he had during hospital admission earlier that week. He complained of SOB on exertion, nonproductive cough, and nausea. He denied chest pain, vomiting, fevers, headaches, abdominal pain, diarrhea, constipation. Hospitalization course: Patient was admitted for COPD exacerbation. He was afebrile. WBC was slightly elevated likely due to steroid use. CXR was negative and showed no active disease. Patient was started on Duonbeb scheduled and as needed and solumedrol 40mg q12. ID was consulted and recommened not to start antibiotics as blood cultures were negative x3 prior to initial discharge. Cardiology was consulted for history of systolic heart failure. Troponins were negative x3. BNP was 479. Home aspirin, lopressor, cozaar, and digoxin were continued. Eliquis was continued for atrial fibrillation. Patient was started on ISS medium scale for history of type [address] chest was grossly unchanged from prior. Patient was also started on sudafed, fluticasone nasal spray, and sodium chloride nasal spray. On morning of discharge, patient was resting comfortably with no acute complaints. He was evaluated by pulmonology who agreed with discharge plan. Pulmonology recommended five day course of oral prednisone 40 mg. Medications were delivered to patient at bedside. However, patient refuses all oral medications including prednisone, digoxin. Patient was educated on consequences of not taking his medications but persistently refused. Discharge plan was discussed with patient in detail. All questions were answered. Patient seen, examined, and discharge plan discussed with my attending Dr. Vincent Chapman, Mary CarmenO. IM Resident PGY-1 Discharge Exam - Head Exam Head Exam: NORMAL INSPECTION - Eye Exam Eye Exam: EOMI, PERRL - ENT Exam ENT Exam: Mucous Membranes Moist - Neck Exam Neck exam: Full Rom, Normal Inspection - Respiratory Exam Respiratory Exam: Wheezes (faint end expiratory wheezes b/l). absent: Accessory Muscle Use, Chest Wall Tenderness, Rales, Rhonchi, Respiratory Distress, Stridor - Cardiovascular Exam Cardiovascular Exam: REGULAR RHYTHM, RRR, +S1, +S2. absent: Diastolic murmur, Gallop, Rubs, Systolic Murmur - GI/Abdominal Exam GI & Abdominal Exam: Normal Bowel Sounds, Soft, Unremarkable. absent: Tenderness - Extremities Exam Extremities exam: full ROM, normal inspection - Back Exam Back exam: FULL ROM, NORMAL INSPECTION - Neurological Exam Neurological exam: Alert, Oriented x3 - Psychiatric Exam Psychiatric exam: Anxious - Skin Skin Exam: Dry, Intact, Warm Discharge Plan - Discharge Medications Prescriptions: Albuterol HFA [Ventolin HFA 90 mcg/actuation (8 g)] 2 puff IH [id number] PRN #1 inhaler PRN Reason: SOB Apixaban [Eliquis] 5 mg PO BID #28 tab Aspirin [Ecotrin] 81 mg PO DAILY #14 tabec Atorvastatin [Lipitor] 40 mg PO DAILY #14 tab Calcium/Chloride/Magnesium [Slow-Mag] 64 mg PO DAILY #14 ect Digoxin [Lanoxin] 0.25 mg PO 1400 #14 tab Fluticasone Nasal [Flonase] 1 actuation NS DAILY #1 spr Folic Acid 1 mg PO DAILY #14 tab Losartan [Cozaar] 25 mg PO DAILY #14 tab metFORMIN [glucOPHAGE] 500 mg PO BID #28 tab Metoprolol Tartrate [Lopressor] 25 mg PO BID #28 tab predniSONE [predniSONE Tab] 40 mg PO DAILY 5 Days #5 tab Sodium Chloride Nasal [place] [[place]imer Nasal [place]] 1 spray NS BID PRN #1 bottle PRN Reason: Nasal Congestion Sodium Chloride Nasal [place] [[place]imer Nasal [place]] 1 ml NS BID #1 bottle Umeclidinium Wanda [Incruse Ellipta] 62.5 mcg IH DAILY #1 blst.w.dev - Follow Up Plan Condition: GOOD Disposition: HOME/ ROUTINE Instructions: COPD Including Emphysema (DC), Chronic Bronchitis (DC), Medicines for Chronic Obstructive Pulmonary Disease (COPD) Additional Instructions: 1. Follow with with primary care doctor within 3-5 days. You will need repeat blood work and will need your digoxin level checked with your primary care doctor. 2. Follow up with hip hop performers, Dr. Plata, within 5-7 days of discharge 3. You will need to follow up with a nutrition internship or infectious disease doctor for your Hepatitis C for further work up and treatment. 4. It is very important you follow with your primary medical doctor so that you may be referred to a final assembly worker (lung doctor) for your chronic breathing problems (COPD on home oxygen). It it very important for you to follow up with a lung doctor. 5. Please resume your home medications as prescribed. The following scripts were sent to your pharmacy: - Calcium chloride/Magnesium 64 mg tablet daily - Digoxin 0.25mg tablet daily - Aspirin 81mg daily 6. You will also be given a Prednisone taper with 10mg tablets: - Take 4 tablets once a day for the first 3 days. - Take 3 tablets once a day for the next 3 days. - Take 2 tablets once a day for the next 3 days. - Take 1 tablet once a day for the last 3 days. -You may resume your home prednisone 10mg daily once you have completed the abov e taper 7. Please get any refills needed on your medications with your primary care doctor. 8. If new or worsening symptoms return to nearest Emergency department (shortness of breath) Referrals: Emory Plata MD [Staff Provider] - <Grayson Kaur - Last Filed: 06/16/18 18:24> Provider - Provider Date of Admission: 06/14/18 21:03 Attending physician: Grayson Kaur MD Consults: 06/14/18 23:41 Cardiology Consult Routine Comment: Consulting Provider: Emory Plata Consulting Physician: Emory Plata Reason for Consult: hx of systolic CHF 06/15/18 07:49 Pulmonology Consult Routine Comment: Consulting Provider: Maura Cohen Consulting Physician: Maura Cohen Reason for Consult: recurrent COPD exacerbation/shortness of breath post CABG Hospital Course - Lab Results Lab Results: Most Recent Lab Values WBC 12.2 10^3/uL (4.5-11.0) H 06/16/18 07:50 RBC 4.86 10^6/uL (3.5-6.1) 06/16/18 07:50 Hgb 13.3 g/dL (14.0-18.0) L 06/16/18 07:50 Hct 40.6 % (42.0-52.0) L 06/16/18 07:50 MCV 83.5 fl (80.0-105.0) 06/16/18 07:50 MCH 27.4 pg (25.0-35.0) 06/16/18 07:50 MCHC 32.8 g/dl (31.0-37.0) 06/16/18 07:50 RDW 14.8 % (11.5-14.5) H 06/16/18 07:50 Plt Count 232 10^3/uL (120.0-450.0) 06/16/18 07:50 MPV 9.7 fl (7.0-11.0) 06/16/18 07:50 Neut % (Auto) 74.1 % (50.0-68.0) H 06/16/18 07:50 Lymph % (Auto) 16.4 % (22.0-35.0) L 06/16/18 07:50 [place] % (Auto) 8.3 % (1.0-6.0) H 06/16/18 07:50 Eos % (Auto) 1.2 % (1.5-5.0) L 06/16/18 07:50 Baso % (Auto) 0.0 % (0.0-3.0) 06/16/18 07:50 Lymph # (Auto) 2.0 (1.2-3.4) 06/16/18 07:50 [place] # (Auto) 1.0 (0.1-0.6) H 06/16/18 07:50 Eos # (Auto) 0.1 (0.0-0.7) 06/16/18 07:50 Baso # (Auto) 0.00 K/mm3 (0.0-2.0) 06/16/18 07:50 Absolute Neuts (auto) 9.03 (1.4-6.5) H 06/16/18 07:50 Sodium 135 mmol/L (132-148) 06/16/18 07:50 Potassium 4.6 mmol/L (3.6-5.0) 06/16/18 07:50 Chloride 100 mmol/L (98-107) 06/16/18 07:50 Carbon Dioxide 28 mmol/L (21-33) 06/16/18 07:50 Anion Gap 12 (10-20) 06/16/18 07:50 BUN 19 mg/dL (7-21) 06/16/18 07:50 Creatinine 0.7 mg/dl (0.8-1.5) L 06/16/18 07:50 Est GFR ( Amer) > 60 06/16/18 07:50 Est GFR (Non-Af Amer) > 60 06/16/18 07:50 POC Glucose (mg/dL) 400 mg/dL (65-110) H* 06/15/18 22:58 Random Glucose 160 mg/dL (70-110) H 06/16/18 07:50 Calcium 9.3 mg/dL (8.4-10.5) 06/16/18 07:50 Phosphorus 3.4 mg/dL (2.5-4.5) 06/15/18 06:00 Magnesium 1.9 mg/dL (1.7-2.2) 06/15/18 06:00 Total Bilirubin 0.9 mg/dL (0.2-1.3) 06/16/18 07:50 AST 73 U/L (17-59) H D 06/16/18 07:50 ALT 55 U/L (7-56) 06/16/18 07:50 Alkaline Phosphatase 82 U/L (38-126) 06/16/18 07:50 Troponin I < 0.01 ng/mL 06/15/18 06:00 NT-Pro-B Natriuret Pep 479 pg/mL (0-450) H 06/14/18 19:52 Total Protein 7.8 g/dL (5.8-8.3) 06/16/18 07:50 Albumin 3.8 g/dL (3.0-4.8) 06/16/18 07:50 Globulin 4.0 gm/dL 06/16/18 07:50 Albumin/Globulin Ratio 0.9 (1.1-1.8) L 06/16/18 07:50 Attending/Attestation - Attestation I have personally seen and examined this patient.: Yes I have fully participated in the care of the patient.: Yes I have reviewed all pertinent clinical information, including history, physical exam and plan: Yes Notes (Text): 06/16/18 18:21 Attending note: Patient seen and examined with resident. Denies any shortness of breath. on oxygen nasal cannula. Patient is a 58-year-old, past medical history significant for asthma, COPD, essential hypertension, coronary artery disease status post CABG, polysubstance abuse, atrial fibrillation on Eliquis, ischemic cardiomyopathy, and hepatitis C who presented to the emergency room with shortness of breath and cough. 1. COPD exacerbation with history of chronic respiratory failure on home oxygen. Continue IV Solu-Medrol. Continue nebulizer treatments. Continue O2 via nasal cannula. 2. Chronic systolic CHF. Ischemic cardiomyopathy. Cardiology evaluation appreciated. 2-D echo showed LVEF of 39.8%, normal chamber size, moderately reduced LV systolic function with wall motion abnormalities, mild mitral regurgitation, systolic function is moderately impaired; there is severe hypokinesis of the apical, anterior, and anterior septal wall segments. Patient not in acute exacerbation. Continue Lopressor. 3. CAD s/p CABG. Continue Lopressor. Patient on eliquis. 4. Paroxysmal atrial fibrillation. Continue home Eliquis. Continue Lopressor. 5. Type 2 diabetes. Hemoglobin A1c 7.1. Continue insulin sliding scale. Continue to monitor Accu-Cheks. Dietery education given. 6. Essential hypertension. Continue Lopressor. 7. History of polysubstance abuse now on methadone. Continue home methadone. 8. Hepatitis C. Patient will need outpatient follow up, discussed with patient. Patient is aware and is planning follow up. Patient will be discharged home. Follow up with PMD Dr. Cueva. 06/16/18 18:24
[2018-06-16 17:58] VITALS: BP 147/92; PULSE 99; RESP 20; TEMP 98.6
--- NOTE | 2018-06-16 18:13 | PN ---
DATE: 06/16/2018 SUBJECTIVE: The patient is experiencing nasal congestion. He denies any chest pain. He is currently in sinus rhythm. PHYSICAL EXAMINATION: VITAL SIGNS: Blood pressure 145/101, heart rate 70, temperature 97, and respirations 21. HEENT: Head normocephalic. CHEST: Bilateral rhonchi. HEART: S1 and S2 regular. EXTREMITIES: No edema. LABORATORY DATA: Today's hemoglobin and hematocrit 13.3/40.6. Today's SMA-7 is within normal limits except for glucose 160 and creatinine of 0.7. Chest CT scan without contrast revealed emphysema more severe in the upper lobes, some mild interstitial disease, no focal consolidation, mild air bronchial thickening. ASSESSMENT: 1. Systolic heart failure. 2. Chronic obstructive lung disease. 3. Coronary artery disease, status post double bypass surgery recently. 4. Consider chronic sinusitis. 5. Uncontrolled diabetes mellitus. 6. Paroxysmal atrial fibrillation. RECOMMENDATIONS: Continue Cozaar 25 mg once a day, digoxin 0.125 mg daily, albuterol inhaler, aspirin 81 mg once a day, Eliquis 5 mg twice a day, Lopressor 25 mg twice a day, Solu-Medrol 10 mg every 12 hours. Start Sudafed at one tablet three times daily. Emory Plata MD
== END 2018-06-16 20:47 | disposition home or self-care (01) | DRG 541 ==
LOC: ED 18:59 → ERH 21:03 → 2RNO 06-15 23:36
PROVIDERS: ADMIT Internal Medicine; ATTEND Internal Medicine
DX: J44.1 Chronic obstructive pulmonary disease with (acute) exacerbation (principal); J96.10 Chronic respiratory failure, unspecified whether with hypoxia or hypercapnia; I50.22 Chronic systolic (congestive) heart failure; B19.20 Unspecified viral hepatitis C without hepatic coma; I11.0 Hypertensive heart disease with heart failure; E11.65 Type 2 diabetes mellitus with hyperglycemia; F11.20 Opioid dependence, uncomplicated; Z99.81 Dependence on supplemental oxygen; I48.0 Paroxysmal atrial fibrillation; I25.5 Ischemic cardiomyopathy; I25.10 Atherosclerotic heart disease of native coronary artery without angina pectoris; D72.829 Elevated white blood cell count, unspecified; T38.0X5A Adverse effect of glucocorticoids and synthetic analogues, initial encounter; Z79.01 Long term (current) use of anticoagulants; Z79.82 Long term (current) use of aspirin; Z82.49 Family history of ischemic heart disease and other diseases of the circulatory system; Z87.01 Personal history of pneumonia (recurrent); Z87.891 Personal history of nicotine dependence; Z90.49 Acquired absence of other specified parts of digestive tract; Z95.1 Presence of aortocoronary bypass graft; Z95.5 Presence of coronary angioplasty implant and graft; F10.11 Alcohol abuse, in remission; Z87.81 Personal history of (healed) traumatic fracture; Z91.041 Radiographic dye allergy status; Z88.0 Allergy status to penicillin; Z91.013 Allergy to seafood; J32.9 Chronic sinusitis, unspecified